=== PATIENT | female | born 1935 | race American Indian/Alaskan Native ===

== ENCOUNTER 2016-10-27 14:41 | Inpatient (IN) | payer MEDICARE ==
[2016-10-27] MEDS ORDERED: VALIUM PO ONE (17:13)
[2016-10-27] MEDS ORDERED: NORCO 5/325 PO ONE (17:13)
[2016-10-27] MEDS ORDERED: DUONEB 0.5 MG-3 MG/3 ML SOLN IH ONE ×2 (17:14→20:27)
--- NOTE | 2016-10-27 17:20 | Emergency Department Report ---
ED General Adult HPI - General Chief complaint: Dyspnea/Respdistress Stated complaint: BETHANY/BACK/LT SIDE PAIN Time Seen by Provider: 10/27/16 16:52 Source: patient, EMS Mode of arrival: Stretcher Limitations: No Limitations, Physical Limitation - History of Present Illness Initial comments: Patient is a 81-year-old female with history of end-stage renal disease on hemodialysis last dialyzed earlier this morning presenting today because of severe low back pain. Patient states that he has had a history of back pain and it usually improves with [place] at home. She states that her pain got worse over the last 4 days but became very severe today after dialysis. States that the pain radiates down the left leg and is similar but worse compared to prior episodes. Has no associated fever, saddle anesthesia, numbness in lower extremities, weakness in lower extremities or significant changes in walking. States patient uses a walker to be able to ambulate at baseline. She also has no history of cancer. She has not taken anything for pain today, usually takes a [place] at night for her pain. - Related Data Home Medications Medication Instructions Recorded Confirmed Last Taken Cardizem 120 mg PO BID 08/30/16 10/27/16 Unknown Labetalol 200 mg PO BID 08/30/16 10/27/16 Unknown Singulair 10 mg PO DAILY 08/30/16 10/27/16 Unknown hydrALAZINE 50 mg PO BID 08/30/16 10/27/16 Unknown Allergies Allergy/AdvReac Type Severity Reaction Status Date / Time enalapril maleate Allergy Severe THROAT Verified 10/27/16 16:42 [From Vasotec] SWELLING enalaprilat dihydrate Allergy Severe THROAT Verified 10/27/16 16:42 [From Vasotec] SWELLING Penicillins Allergy Severe Itching Verified 10/27/16 16:42 ED Review of Systems ROS: Stated complaint: BETHANY/BACK/LT SIDE PAIN Other details as noted in HPI Comment: All other systems reviewed and negative Constitutional: denies: chills, fever Respiratory: SOB with exertion. denies: cough Cardiovascular: dyspnea on exertion Gastrointestinal: denies: nausea, vomiting Skin: denies: rash Psychiatric: denies: anxiety ED Past Medical Hx - Past Medical History Hx Hypertension: Yes (CHF, last episode JUL 2016. PATIENT states she last saw integrated logistics support manager in Jul) Hx Liver Disease: Yes (hepatitis C ) Hx Renal Disease: Yes (ESRD) Hx COPD: Yes Hx HIV: No - Surgical History Past Surgical History?: Yes - Social History Smoking Status: Never Smoker Substance Use Type: None - Medications Home Medications: Home Medications Medication Instructions Recorded Confirmed Last Taken Type Cardizem 120 mg PO BID 08/30/16 10/27/16 Unknown History Labetalol 200 mg PO BID 08/30/16 10/27/16 Unknown History Singulair 10 mg PO DAILY 08/30/16 10/27/16 Unknown History hydrALAZINE 50 mg PO BID 08/30/16 10/27/16 Unknown History ED Physical Exam - General Limitations: No Limitations, Physical Limitation - Eye Eye exam: Present: normal appearance - ENT ENT exam: Present: normal exam - Respiratory Respiratory exam: Present: normal lung sounds bilaterally, other (patient goes into moderate respiratory distress with minimal exertion which included sitting up from 45 angle in bed, desaturated down to the low 80s) - Cardiovascular Cardiovascular Exam: Present: regular rate, normal rhythm - GI/Abdominal GI/Abdominal exam: Present: soft. Absent: distended, tenderness - Rectal Rectal exam: Present: normal rectal tone - Extremities Exam Extremities exam: Present: normal capillary refill - Back Exam Back exam: Present: other (tenderness to the midline lumbar spine, no step-offs , no paraspinal tenderness) - Neurological Exam Neurological exam: Present: alert, oriented X3. Absent: motor sensory deficit - Psychiatric Psychiatric exam: Present: agitated - Skin Skin exam: Present: intact ED Course Vital Signs 10/27/16 10/27/16 10/27/16 16:45 17:31 20:42 Temperature 100.1 F H 102.4 F H Pulse Rate 112 H Pulse Rate [ 106 H Anterior Bilateral Throughout] Respiratory 16 Rate Respiratory 20 Rate [Anterior Bilateral Throughout] Blood Pressure 150/51 O2 Sat by Pulse 95 Oximetry 10/27/16 21:21 Temperature Pulse Rate Pulse Rate [ 101 H Anterior Bilateral Throughout] Respiratory Rate Respiratory 18 Rate [Anterior Bilateral Throughout] Blood Pressure O2 Sat by Pulse Oximetry - Reevaluation(s) Reevaluation #1: 10/27/16 18:04 Patient was found to have a rectal temperature 102.4. Given this fever and severe back pain the concern for an epidural abscess was raised. Initially I had discussed with the patient's bushler Dr. Seshan who stated he would arrange for dialysis so that the patient could receive an MRI with contrast. I spoke to the radiologist for [facility], I discussed them with them the clinical case and the concern of epidural abscess. He states that a MRI without contrast is usually sufficient to detect an epidural abscess. A MRI without contrast is ordered and I discussed this with the patient as well as the bushler and chief medical technologist. Bank and cefepime were also ordered along with a blood culture prior to antibiotics. ED Medical Decision Making - Lab Data Result diagrams: 10/27/16 20:05 10/27/16 20:05 - Medical Decision Making IV, labs, cxr, MRI to ro abscess, Antibiotics with vancomycin and cefepime MRI negative for abscess no clear source based on cxr and physical exam CRP and WBC are both very elevated suggesting there is likely a septic process, patient does not produce urine so urinalysis was not obtained. Critical care attestation.: If time is entered above; I have spent that time in minutes in the direct care of this critically ill patient, excluding procedure time. ED Disposition Clinical Impression: Back pain Qualifiers: Back pain location: low back pain Chronicity: acute Back pain laterality: midline Sciatica presence: unspecified whether sciatica present Qualified Code(s ): M54.5 - Low back pain Sepsis Qualifiers: Sepsis type: sepsis due to unspecified organism Qualified Code(s): A41.9 - Sepsis, unspecified organism Disposition: OP ADMITTED IP TO THIS HOSP Is pt being admited?: Yes Condition: Serious Referrals: PRIMARY CARE, [Primary Care Provider] - 3-5 Days Time of Disposition: 22:46 (transition care to the hospitalist)
[2016-10-27] MEDS ORDERED: MAXIPIME/NS 2 GM/100 ML 100 ML IV ONE (17:34)
[2016-10-27] MEDS ORDERED: VANCOMYCIN VIAL IV ONE (17:34)
[2016-10-27] MEDS ORDERED: VANCOMYCIN PHARMACY TO DOSE IV SCH (18:00)
[2016-10-27] MEDS ORDERED: VANCOMYCIN VIAL 1,500 MG in NACL 0.9% 500 ML 500 ML IV ONE (19:00)
[2016-10-27 20:32] LABS: Hemoglobin 11.9 gm/dl (10.1-14.3); Mean Corpuscular HGB Conc 32 % (30-34); Mean Corpuscular Hemoglobin 29 pg (28-32); Mean Corpuscular Volume 90 fl (79-97); Platelet Count 222 K/mm3 (140-440); Red Blood Count 4.11 M/mm3 (3.65-5.03); Red Cell Distribution Width 15.8 % (13.2-15.2); White Blood Count 25.2 K/mm3 (4.5-11.0)
--- NOTE | 2016-10-27 20:49 | Magnetic Resonance Report ---
FINAL REPORT EXAM: MR CERVICAL SPINE WO CON HISTORY: ro abscess TECHNIQUE: MRI was performed of the cervical spine using the following pulse sequences: Axial: Gradient echo T2 weighted and T2 Sagittal: T1, T2 and STIR PRIORS: None. FINDINGS: The vertebral bodies have normal height and alignment and cervical lordosis is preserved. The paraspinous soft tissues are unremarkable. The cervical cord has a normal signal intensity and appearance. The craniocervical junction is unremarkable. There is no evidence of abscess. C2-3: No significant degenerative changes. No spinal or foraminal stenosis. C3-4: Mild posterior osteophyte disc complex without spinal or foraminal stenosis. C4-5: Mild posterior osteophyte disc complex without spinal or foraminal stenosis. Prominent right facet hypertrophy. C5-6: Mild posterior osteophyte disc complex that impresses upon the thecal sac but does not cause spinal or foraminal stenosis. C6-7: No significant degenerative changes. No spinal or foraminal stenosis. C7-T1: No significant degenerative changes. No spinal or foraminal stenosis. IMPRESSION: 1. Multilevel degenerative disc disease as described above 2. No evidence of abscess
[2016-10-27 20:50] LABS: ISTAT Base Excess 1; ISTAT HCO3 25.2; ISTAT PCO2 39.4 (35-45); ISTAT PH 7.413 (7.35-7.45); ISTAT PO2 83 (80-105); ISTAT SO2 96; ISTAT TCO2 26
[2016-10-27 20:53] LABS: BUN/Creatinine Ratio 4.41; Calcium 8.7 mg/dL (8.4-10.2); Phosphorous 2.5 mg/dL (2.5-4.5); Potassium 3.6 mmol/L (3.6-5.0)
[2016-10-27 20:54] LABS: Erythrocyte Sedimentation Rate 60 mm/Hr (0-20)
--- NOTE | 2016-10-27 20:55 | Magnetic Resonance Report ---
FINAL REPORT EXAM: MR THORACIC SPINE WO CON HISTORY: ro abscess TECHNIQUE: MRI of the thoracic spine: Sagittal T1 FLAIR, T2 and STIR Axial T1 and T2 Axial images are mildly motion degraded. PRIORS: None. FINDINGS: The thoracic vertebrae are normal in height and alignment. There are small hemangiomas in the T6, T10 and L1 vertebral bodies unlikely to be clinically significant. Otherwise, osseous marrow signal is normal. The thoracic cord is normal in signal intensity and there is no evidence of spinal or foraminal stenosis. The disc spaces are well preserved. There is no evidence of fracture or subluxation. The paraspinous soft tissues are unremarkable. There is no evidence of abscess. IMPRESSION: No evidence of abscess Hemangiomas in the T6, T10 and L1 vertebral bodies unlikely to be clinically significant.
--- NOTE | 2016-10-27 21:03 | Magnetic Resonance Report ---
FINAL REPORT EXAM: MR LUMBAR SPINE WO CON HISTORY: ro abscess TECHNIQUE: MRI of the lumbar spine: Axial: T1, T2 Sagittal: T1, T2 and STIR Sagittal images are mildly to moderately motion degraded. Axial images are moderately motion degraded. PRIORS: None. FINDINGS: The lumbar vertebral bodies have normal height and alignment and lumbar lordosis is preserved. The paraspinous soft tissues are unremarkable. There is no evidence of abscess. The conus medullaris is in a normal location and has a normal signal intensity and appearance. There is diffuse disc desiccation. There is a hemangioma in the L1 vertebral body unlikely to be clinically significant. L3-L4: No there is a medium-sized broad-based posterior disc bulge and bilateral facet hypertrophy that results in mild spinal stenosis. There is no foraminal stenosis. L4-L5: There is a broad-based posterior disc bulge and bilateral facet hypertrophy. There is bilateral neural foraminal narrowing. L5-S1: There is a broad-based posterior disc bulge and bilateral facet hypertrophy. There is bilateral neural foraminal narrowing. IMPRESSION: No evidence of abscess. Multilevel degenerative disc disease from L3-4 through L5-S1.
[2016-10-27 21:05] LABS: Basophils % (Manual) 0 % (0.0-1.8); Blastocytes % (Manual) 0 %; Eosinophils % (Manual) 0 % (0.0-4.3)
[2016-10-27 21:06] LABS: Anisocytosis Few; Poikilocytosis Few
[2016-10-27 21:07] LABS: Diff Status Complete
[2016-10-27] MEDS ORDERED: LEVAQUIN 750MG/150ML 150 ML IV ONE (23:15)
[2016-10-27] MEDS ORDERED: LEVAQUIN 750MG/150ML 150 ML IV SCH (23:15)
--- NOTE | 2016-10-27 23:17 | History and Physical Report ---
History of Present Illness Date of examination: 10/27/16 History of present illness: 81-year-old woman with end-stage renal disease on dialysis Sunday and Sunday, hypertension, CHF, COPD constant emergency room with complaints of of pain in the back in the left mid lateral aspect. She describes the pain is sharp, worse when she takes a deep breath. Also complaining of a cough productive of yellow phlegm, fever Patient denies chest pain, palpitation, abdominal pain, hematochezia, dysuria, frequency, focal weakness, dysarthria, fever chills, polydipsia polyuria, hot or cold intolerance, easy bruisability, or rash or bleeding from mucosal membrane, rhinorrhea, epistaxis, earache, tinnitus, blurry vision, eye discharge , anxiety, depression. Other review of systems negative PAST SURGICAL HISTORY: Cholecystectomy SOCIAL HISTORY: Denies alcohol, tobacco, drugs FAMILY HISTORY: Hypertension Medications and Allergies Allergies Allergy/AdvReac Type Severity Reaction Status Date / Time enalapril maleate Allergy Severe THROAT Verified 10/27/16 16:42 [From Vasotec] SWELLING enalaprilat dihydrate Allergy Severe THROAT Verified 10/27/16 16:42 [From Vasotec] SWELLING Penicillins Allergy Severe Itching Verified 10/27/16 16:42 Home Medications Medication Instructions Recorded Confirmed Last Taken Type Cardizem 120 mg PO BID 08/30/16 10/27/16 Unknown History Labetalol 200 mg PO BID 08/30/16 10/27/16 Unknown History Singulair 10 mg PO DAILY 08/30/16 10/27/16 Unknown History hydrALAZINE 50 mg PO BID 08/30/16 10/27/16 Unknown History Active Meds: Active Medications Vancomycin HCl (Vancomycin Pharmacy To Dose) 1 each IV PKCONSULT RASHAUN PRN Reason: Protocol Exam - Physical Exam Narrative exam: Gen. appearance: Patient lying in bed, no apparent distress HEENT: Normocephalic, atraumatic, pupils equally round and reactive to light, extraocular movement intact, and no sclericterus,. No JVD or thyromegaly or nodule,neck supple, no carotid bruit ,mucous membranes moist, no exudate or erythema Heart: S1, S2, regular rate and rhythm Lungs: Echo was on the left bilaterally, breathing comfortable Abdomen: Positive bowel sounds, nontender, nondistended, no organomegaly Extremity: No edema, cyanosis, clubbing Skin: No rash, nodules, warm, dry Neuro: Oriented 3, cranial nerves II-12 intact, speech is fluent, motor and sensory intact - Constitutional Vitals: Temp Pulse Resp BP Pulse Ox 102.4 F H 101 H 18 150/51 95 10/27/16 17:31 10/27/16 21:21 10/27/16 21:21 10/27/16 16:45 10/27/16 16:45 Results - Labs CBC & Chem 7: 10/28/16 06:47 10/28/16 06:47 Labs: Abnormal lab results 10/27/16 10/27/16 10/27/16 Range/Units 20:05 20:05 20:05 WBC 25.2 H (4.5-11.0) K/mm3 RDW 15.8 H (13.2-15.2) % Seg Neuts % (Manual) 96.0 H (40.0-70.0) % Lymphocytes % (Manual) 2.0 L (13.4-35.0) % Seg Neutrophils # Man 24.2 H (1.8-7.7) K/mm3 Lymphocytes # (Manual) 0.5 L (1.2-5.4) K/mm3 Chloride 97.0 L (98-107) mmol/L Creatinine 3.4 H (0.7-1.2) mg/dL Glucose 115 H (65-100) mg/dL Troponin T 0.069 H (0.00-0.029) ng/mL C-Reactive Protein (0.00-1.30) mg/dL NT-Pro-B Natriuret Pep 31163 H (0-900) pg/mL Triglycerides 179 H (2-149) mg/dL 10/27/16 Range/Units 20:05 WBC (4.5-11.0) K/mm3 RDW (13.2-15.2) % Seg Neuts % (Manual) (40.0-70.0) % Lymphocytes % (Manual) (13.4-35.0) % Seg Neutrophils # Man (1.8-7.7) K/mm3 Lymphocytes # (Manual) (1.2-5.4) K/mm3 Chloride (98-107) mmol/L Creatinine (0.7-1.2) mg/dL Glucose (65-100) mg/dL Troponin T (0.00-0.029) ng/mL C-Reactive Protein 33.20 H (0.00-1.30) mg/dL NT-Pro-B Natriuret Pep (0-900) pg/mL Triglycerides (2-149) mg/dL - Imaging and Cardiology EKG: image reviewed Chest x-ray: image reviewed Assessment and Plan MRI of the cervical, thoracic and lumbar spine negative for abscess Sepsis Suspect pneumonia Hypertension CHF, stable COPD stable End-stage renal disease on dialysis Obesity Admits medicine Status post vancomycin, start Levaquin Follow blood cultures, and CT chest Continue outpatient medications and start DVT prophylaxis
--- NOTE | 2016-10-27 23:42 | XRay Report ---
FINAL REPORT EXAM: XR CHEST 1V AP HISTORY: sob TECHNIQUE: AP portable view of the chest. PRIORS: None. FINDINGS: There is a right-sided central venous catheter with the tip in for the right atrium. There is atherosclerosis in the thoracic aorta. Otherwise the cardiomediastinal silhouette appears normal. The lungs are clear. The bones and soft tissues are unremarkable. IMPRESSION: No evidence of acute cardiopulmonary disease
[2016-10-28] MEDS ORDERED: LEVAQUIN 750MG/150ML 150 ML IV ONE (01:35)
--- NOTE | 2016-10-28 02:12 | Admit Criteria Form ---
<LAZARO NEWMAN - Last Filed: 10/28/16 02:13> Admission Criteria Documentation: BACK PAIN Clinical Indications for Admission to Inpatient Care (Place 'X' for any and all applicable criteria): Admission is indicated for ANY ONE of the following (1)(2)(3)(4)(5)(6): [x ]I. Inpatient admission required rather than observation care (Also use Back Pain: Observation Care as appropriate) because of ANY ONE of the following [ ]a) Severe pain requiring acute inpatient management [ ]b) Immediate inpatient surgery [ x]c) Other condition, treatment or monitoring requiring inpatient admission [ ]II. Spine fracture with significant damage or threat of damage to vertebral column or spinal cord [ ]III. Progressive or severe neurologic deficit [ ]IV. Suspected spinal infection (e.g., epidural abscess, vertebral osteomyelitis)(10) [ ]V. Suspected cause requires inpatient treatment (eg, aortic dissection) [ ]. Cauda equina syndrome as indicated by ANY ONE of the following (9): [ ]a) Bowel dysfunction [ ]b) Bladder dysfunction [ ]c) Saddle anesthesia [ ]d) Neurologic abnormality suggesting cauda equina impingement Extended stay beyond goal length of stay may be needed for (3)(25): [ ]a) Spinal cord compression from stenosis, disk, or tumor (8)(9) [ ]b) Traumatic or pathologic vertebral fracture (33) [ ]c) Vertebral infection(10) [ ]d) Severe pain that is difficult to control [ ]e) Older patients(65 years or older) The original [email or web address] content created by [employer] has been revised. The portions of the content which have been revised are identified through the use of italic text or in bold, and [facility] has neither reviewed nor approved the modified material. All other unmodified content is copyright [email or web address]. Please see references footnoted in the original [email or web address] edition 2016 Admission Criteria Met: Yes <RIGOBERTO THOMAS - Last Filed: 10/28/16 23:16> Admission Criteria Documentation: SEPSIS and OTHER FEBRILE ILLNESS, W/O FOCAL INFECTION Clinical Indications for Admission to Inpatient Care ( Place 'X' for any and all applicable criteria): Admission is indicated for ANY ONE of the following (1)(2)(3)(4): [ ] I. Bacteremia [ ]II. Suspected or identified specific infection requiring hospitalization (eg, meningitis, endocarditis) [ ]III. Hemodynamic instability [ ]IV. Altered mental status [ ]V. Failure or unavailability of outpatient antimicrobial treatment [ ]. Hypoxemia [ ]VII. Seizures [ ]VIII. High-risk febrile neutropenia [ ]IX. Need for parenteral antibiotic in patient who is likely to abuse vascular access device (eg, injection drug user) [A](7) [ ]X. Temperature greater than 104.9 degrees F (40.5 degrees C) (oral) [X ]XI. Inpatient admission required rather than observation care because of ANY ONE of the following: [ ]1) Specific infection identified that is too severe for outpatient treatment or observation care trial [ ]2) Metabolic disorder (eg, hypoglycemia, hyperglycemia, metabolic acidosis) that is severe or persistent [ ]3) Temperature greater than 103.1 degrees F (39.5 degrees C) ( oral) that is not responsive to observation care treatment [ ]4) IV fluid to replace significant ongoing (eg, for over 24 hours) losses (> 3 L/m2 per day) [ ]5) Supplemental oxygen or respiratory treatments for over 24 hours that is performable only in acute inpatient setting [ ]6) Parenteral nutrition regimen need that must be implemented on inpatient basis [ ]7) Strict or protective (eg, laminar flow) isolation [X ]8) Other condition, treatment or monitoring requiring inpatient admission Extended stay beyond goal length of stay may be needed for(1)(3) [ ]a) Sepsis or septic shock(22) [ ]b) Positive blood cultures [ ]c) Insufficient oral intake [ ]d) High-risk febrile neutropenia(29)(30) [ ]e) Continued fever and clinical instability [ ]f) Clinically active comorbid illness (e.g,heart failure, renal failure , diabetes) The original [facility] content created by [employer] has been revised. The portions of the content which have been revised are identified through the use of italic text or in bold, and [facility] has neither reviewed nor approved the modified material. All other unmodified content is copyright [facility]. Please see references footnoted in the original [email or web address] edition 2016 Admission Criteria Met: Yes
--- NOTE | 2016-10-28 02:59 | Cat Scan Report ---
FINAL REPORT PROCEDURE: CT CHEST WO CON TECHNIQUE: Computerized axial tomography of the chest was performed without contrast material. This study is performed without intravenous contrast and the sensitivity for pathology, including neoplasms, adenopathy, abscess, pulmonary embolism and aortic dissection, is reduced. HISTORY: sob fever COMPARISON: No prior studies are available for comparison. TECHNICAL QUALITY: Satisfactory. FINDINGS: Heart and pericardium: Normal. Thoracic aorta: There is calcified plaque in the thoracic aorta. There is no aneurysm.. Pulmonary vasculature: Normal. Lymph nodes: There are borderline enlarged mediastinal lymph nodes.. Lungs: There is advanced COPD. There is cystic change and fibrosis at the lung bases. There is infiltrate at the right lung base.. Pleural space: There are no effusions or pneumothoraces.. Musculoskeletal structures: No significant abnormality. Upper abdominal structures: No significant abnormality. IMPRESSION: Heart size is normal. There are borderline enlarged mediastinal lymph nodes.. There is advanced COPD. There is cystic change and fibrosis at the lung bases. There is infiltrate at the right lung base.. There are no effusions or pneumothoraces.. .
[2016-10-28] MEDS ORDERED: TYLENOL PO PRN (05:17)
[2016-10-28] MEDS ORDERED: MILK OF MAGNESIA PO PRN (05:17)
[2016-10-28] MEDS ORDERED: ZOFRAN IV PRN (05:17)
[2016-10-28] MEDS ORDERED: DULCOLAX PR PRN (05:17)
[2016-10-28 07:58] LABS: BUN/Creatinine Ratio 4.76; Calcium 8.3 mg/dL (8.4-10.2); Chloride 97.1 mmol/L (98-107); Potassium 3.8 mmol/L (3.6-5.0)
[2016-10-28 08:00] LABS: Hematocrit 33.6 % (30.3-42.9); Hemoglobin 10.7 gm/dl (10.1-14.3); Mean Corpuscular HGB Conc 32 % (30-34); Mean Corpuscular Hemoglobin 29 pg (28-32); Mean Corpuscular Volume 91 fl (79-97); Platelet Count 214 K/mm3 (140-440); Red Cell Distribution Width 15.9 % (13.2-15.2)
[2016-10-28 08:36] LABS: White Blood Count 32.6 K/mm3 (4.5-11.0)
[2016-10-28] MEDS: NORMODYNE PO SCH ×2 (09:58→22:12)
[2016-10-28] MEDS: PERCOCET 5/325 PO PRN ×2 (09:58→17:14)
[2016-10-28] MEDS: APRESOLINE PO SCH ×2 (09:58→22:11)
[2016-10-28] MEDS: LOVENOX SUB-Q SCH (09:58)
[2016-10-28] MEDS: SINGULAIR PO SCH (09:58)
[2016-10-28] MEDS ORDERED: LABETALOL 200 MG PO SCH (10:00)
[2016-10-28] MEDS ORDERED: NON-FORMULARY (Singulair 10 MG) PO SCH (10:00)
[2016-10-28] MEDS ORDERED: NON-FORMULARY (Hydralazine 50 MG) PO SCH (10:00)
--- NOTE | 2016-10-28 11:09 | Consultation ---
History of Present Illness - Reason for Consult Consult date: 10/27/16 end stage renal disease - History of Present Illness Patient is a 81 year old AAF with history significant for ESRD on maintenance hemodialysis on Sunday and Sunday, Hypertension, CHF, COPD, Anemia, Hepatitis C and OA was sent to the ER from hemodialysis unit for further evaluation of shortness of breath. The symptoms started one week prior to admission and progressively got worse. Associated symptoms include left mid lateral chest wall pain, cough productive of yellow phlegm, fever, malaise, poor appetite and generalized weakness. Patient was last dialyzed yesterday. Patient denies chest pain, hemoptysis, N, V, D, abdominal pain, dysuria, hematuria, skin rash or jaundice. Past History Past Medical History: anemia, COPD, dialysis, ESRD, heart failure, hepatitis, hypertension Past Surgical History: Other (AVG placement) Social history: denies: smoking, alcohol abuse Medications and Allergies Allergies Allergy/AdvReac Type Severity Reaction Status Date / Time enalapril maleate Allergy Severe THROAT Verified 10/27/16 16:42 [From Vasotec] SWELLING enalaprilat dihydrate Allergy Severe THROAT Verified 10/27/16 16:42 [From Vasotec] SWELLING Penicillins Allergy Severe Itching Verified 10/27/16 16:42 Home Medications Medication Instructions Recorded Confirmed Last Taken Type Cardizem 120 mg PO BID 08/30/16 10/27/16 Unknown History Labetalol 200 mg PO BID 08/30/16 10/27/16 Unknown History Singulair 10 mg PO DAILY 08/30/16 10/27/16 Unknown History hydrALAZINE 50 mg PO BID 08/30/16 10/27/16 Unknown History Active Meds: Active Medications Acetaminophen (Tylenol) 650 mg PO Q4H PRN PRN Reason: Pain MILD(1-3)/Fever >100.5/MCLEAN Bisacodyl (Dulcolax) 10 mg ID QDAY PRN PRN Reason: Constipation unrelieved by MOM Enoxaparin Sodium (Lovenox) 30 mg SUB-Q QDAY [facility] Last Admin: 10/28/16 09:58 Dose: 30 mg Hydralazine HCl (Apresoline) 50 mg PO BID [facility] Last Admin: 10/28/16 09:58 Dose: 50 mg Levofloxacin/Dextrose (Levaquin 500mg/100ml) 100 mls @ 100 mls/hr IV Q48H [facility] Labetalol HCl (Normodyne) 200 mg PO BID [facility] Last Admin: 10/28/16 09:58 Dose: 200 mg Magnesium Hydroxide (Milk Of Magnesia) 30 ml PO Q4H PRN PRN Reason: Constipation Montelukast Sodium (Singulair) 10 mg PO DAILY [facility] Last Admin: 10/28/16 09:58 Dose: 10 mg Ondansetron HCl (Zofran) 4 mg IV Q8H PRN PRN Reason: N/V unrelieved by Reglan Oxycodone/Acetaminophen (Percocet 5/325) 1 tab PO Q6H PRN PRN Reason: Pain, Moderate (4-6) Last Admin: 10/28/16 09:58 Dose: 1 tab Vancomycin HCl (Vancomycin Pharmacy To Dose) 1 each IV PKCONSULT [facility] PRN Reason: Protocol Review of Systems Constitutional: fever, sweats, anorexia, fatigue, weakness, malaise, lethargy, poor appetite Ears, nose, mouth and throat: no ear pain, no sinus pressure, no sinus pain, no epistaxis, no dysphagia Breasts: deferred Cardiovascular: edema, shortness of breath, dyspnea on exertion, no chest pain, no orthopnea, no syncope, no lightheadedness Respiratory: cough, cough with sputum, shortness of breath, dyspnea on exertion , no hemoptysis, no wheezing Gastrointestinal: no abdominal pain, no nausea, no vomiting, no diarrhea, no melena Genitourinary Female: no dysuria, no hematuria Rectal: no bleeding Musculoskeletal: frequent falls, no neck stiffness, no neck pain, no redness of joints Integumentary: no rash, no jaundice Neurological: no head injury, no paralysis, no seizures, no syncope Endocrine: no high blood sugars Hematologic/Lymphatic: no easy bleeding Allergic/Immunologic: no urticaria Exam - Vital Signs Vital signs: Vital Signs Temp Pulse Resp BP Pulse Ox 100.1 F H 112 H 16 150/51 95 10/27/16 16:45 10/27/16 16:45 10/27/16 16:45 10/27/16 16:45 10/27/16 16:45 - General Appearance General appearance: well-developed, well-nourished, appears stated age, frail, other (no distress, left arm AVG, right IJ tunnel catheter) EENT: PERRL, mucous membranes moist Neck: Present: neck supple Respiratory: Clear to Ascultation Heart: regular, S1S2, no murmurs Gastrointestinal: Present: normoactive bowel sounds. Absent: tenderness, distended Integumentary: no rash Neurologic: no focal deficit, no asterixis, alert and oriented x3, CN 3-12 intact Musculoskeletal: Present: other (no edema) Psychiatric: cooperative Results - Lab Results 10/30/16 15:20 10/30/16 15:20 Most recent lab results Calcium 8.3 mg/dL (8.4-10.2) L 10/28/16 06:47 Phosphorus 2.5 mg/dL (2.5-4.5) 10/27/16 20:05 Magnesium 2.0 mg/dL (1.7-2.3) 10/27/16 20:05 Assessment and Plan - Patient Problems (1) ESRD (end stage renal disease) on dialysis Current Visit: Yes Status: Acute Plan to address problem: Patient is well known to our service. Patient was last dialyzed yesterday. Continue hemodialysis MWF. (2) Pneumonia Current Visit: Yes Status: Acute (3) Sepsis Current Visit: Yes Status: Acute Qualifiers: Sepsis type: sepsis due to unspecified organism Qualified Code(s): A41.9 - Sepsis, unspecified organism Plan to address problem: Monitor cultures. (4) Anemia, chronic renal failure Current Visit: No Status: Acute Plan to address problem: Epogen.
--- NOTE | 2016-10-28 12:21 | Progress Note ---
Assessment and Plan Assessment and plan: --Possible pneumonia, community-acquired Continue current antibiotics, follow cultures, supportive care --Sepsis secondary to pneumonia Emaciated sepsis pathway, monitor lactic acid levels, follow cultures, IV fluids --Severe leukocytosis secondary to sepsis Follow cultures, consider ID evaluation if needed --Hypertension; Moderate control, continue current antihypertensives and when necessary medications --Back pain/secondary to degenerative spine disease MRI cervical spine, MRI thoracic spine, MRI lumbosacral spine negative for abscess Findings consistent with degenerative disc and spine disease Continue pain medications supportive care, physical therapy occupational therapy when patient is more stable --End-stage renal disease on hemodialysis; Dialysis per scheduled, nephrology following --Abnormal cardiac enzymes; Probably secondary to end-stage renal disease, patient does not have any chest pain or shortness of breath However in view of patient's multiple risk factors acute coronary syndrome needs to be ruled out, serial cardiac enzymes and EKG Echocardiogram if needed --Acute exacerbation of COPD; Oxygen titrated to O2 sats more than 90%, nebulizers as needed, patient is already on antibiotics Supportive care --Acute on chronic congestive heart failure Managed with diuretics and dialysis and fluid removal Consider cardiology evaluation if needed --DVT prophylaxis with heparin --Status; full code Plan of care discussed with the patient her nurse, medical records reviewed History Interval history: Patient seen and evaluated medical records reviewed No new events reported by the nursing staff Patient denies chest pain shortness of breath Hospitalist Physical - Constitutional Vitals: Temp Pulse Resp BP Pulse Ox 98.4 F 102 H 16 150/66 100 10/28/16 08:00 10/28/16 08:00 10/28/16 08:00 10/28/16 08:00 10/28/16 10:00 General appearance: Present: no acute distress, well-nourished - EENT Eyes: Present: PERRL, EOM intact - Neck Neck: Present: supple, normal ROM - Respiratory Respiratory effort: normal Respiratory: bilateral: diminished, negative: rales, rhonchi, wheezing - Cardiovascular Rhythm: regular Heart Sounds: Present: S1 & S2 - Extremities Extremities: no ischemia, pulses intact, pulses symmetrical Peripheral Pulses: within normal limits - Abdominal General gastrointestinal: soft, non-tender, non-distended, normal bowel sounds - Integumentary Integumentary: Present: clear, warm - Psychiatric Psychiatric: appropriate mood/affect, cooperative - Neurologic Neurologic: CNII-XII intact, moves all extremities Results - Labs CBC & Chem 7: 10/28/16 06:47 10/28/16 06:47 Labs: Laboratory Last Values WBC 32.6 K/mm3 (4.5-11.0) H 10/28/16 06:47 RBC 3.70 M/mm3 (3.65-5.03) 10/28/16 06:47 Hgb 10.7 gm/dl (10.1-14.3) 10/28/16 06:47 Hct 33.6 % (30.3-42.9) 10/28/16 06:47 MCV 91 fl (79-97) 10/28/16 06:47 MCH 29 pg (28-32) 10/28/16 06:47 MCHC 32 % (30-34) 10/28/16 06:47 RDW 15.9 % (13.2-15.2) H 10/28/16 06:47 Plt Count 214 K/mm3 (140-440) 10/28/16 06:47 Add Manual Diff Complete 10/27/16 20:05 Total Counted 100 10/27/16 20:05 Seg Neutrophils % [place] 10/28/16 06:47 Seg Neuts % (Manual) 96.0 % (40.0-70.0) H 10/27/16 20:05 Band Neutrophils % 0 % 10/27/16 20:05 Lymphocytes % (Manual) 2.0 % (13.4-35.0) L 10/27/16 20:05 Reactive Lymphs % (Man) 0 % 10/27/16 20:05 Monocytes % (Manual) 2.0 % (0.0-7.3) 10/27/16 20:05 Eosinophils % (Manual) 0 % (0.0-4.3) 10/27/16 20:05 Basophils % (Manual) 0 % (0.0-1.8) 10/27/16 20:05 Metamyelocytes % 0 % 10/27/16 20:05 Myelocytes % 0 % 10/27/16 20:05 Promyelocytes % 0 % 10/27/16 20:05 Blast Cells % 0 % 10/27/16 20:05 Nucleated RBC % Not Reportable 10/27/16 20:05 Seg Neutrophils # Man 24.2 K/mm3 (1.8-7.7) H 10/27/16 20:05 Band Neutrophils # 0.0 K/mm3 10/27/16 20:05 Lymphocytes # (Manual) 0.5 K/mm3 (1.2-5.4) L 10/27/16 20:05 Abs React Lymphs (Man) 0.0 K/mm3 10/27/16 20:05 Monocytes # (Manual) 0.5 K/mm3 (0.0-0.8) 10/27/16 20:05 Eosinophils # (Manual) 0.0 K/mm3 (0.0-0.4) 10/27/16 20:05 Basophils # (Manual) 0.0 K/mm3 (0.0-0.1) 10/27/16 20:05 Metamyelocytes # 0.0 K/mm3 10/27/16 20:05 Myelocytes # 0.0 K/mm3 10/27/16 20:05 Promyelocytes # 0.0 K/mm3 10/27/16 20:05 Blast Cells # 0.0 K/mm3 10/27/16 20:05 WBC Morphology Not Reportable 10/27/16 20:05 Hypersegmented Neuts Not Reportable 10/27/16 20:05 Hyposegmented Neuts Not Reportable 10/27/16 20:05 Hypogranular Neuts Not Reportable 10/27/16 20:05 Smudge Cells Not Reportable 10/27/16 20:05 Toxic Granulation Not Reportable 10/27/16 20:05 Toxic Vacuolation Not Reportable 10/27/16 20:05 Dohle Bodies Not Reportable 10/27/16 20:05 Pelger-Huet Anomaly Not Reportable 10/27/16 20:05 [place] Rods Not Reportable 10/27/16 20:05 Platelet Estimate Appears normal 10/27/16 20:05 Clumped Platelets Not Reportable 10/27/16 20:05 Plt Clumps, EDTA Not Reportable 10/27/16 20:05 Large Platelets Not Reportable 10/27/16 20:05 Giant Platelets Not Reportable 10/27/16 20:05 Platelet Satelliting Not Reportable 10/27/16 20:05 Plt Morphology Comment Not Reportable 10/27/16 20:05 RBC Morphology Not Reportable 10/27/16 20:05 Dimorphic RBCs Not Reportable 10/27/16 20:05 Polychromasia Not Reportable 10/27/16 20:05 Hypochromasia Not Reportable 10/27/16 20:05 Poikilocytosis Few 10/27/16 20:05 Anisocytosis Few 10/27/16 20:05 Microcytosis Not Reportable 10/27/16 20:05 Macrocytosis Not Reportable 10/27/16 20:05 Spherocytes Not Reportable 10/27/16 20:05 Pappenheimer Bodies Not Reportable 10/27/16 20:05 Sickle Cells Not Reportable 10/27/16 20:05 Target Cells Not Reportable 10/27/16 20:05 Tear Drop Cells Not Reportable 10/27/16 20:05 Ovalocytes Not Reportable 10/27/16 20:05 Helmet Cells Not Reportable 10/27/16 20:05 Hackett-[place] Bodies Not Reportable 10/27/16 20:05 [place] Rings Not Reportable 10/27/16 20:05 Nelia Cells Not Reportable 10/27/16 20:05 Bite Cells Not Reportable 10/27/16 20:05 Crenated Cell Not Reportable 10/27/16 20:05 Elliptocytes Not Reportable 10/27/16 20:05 Acanthocytes (Spur) Not Reportable 10/27/16 20:05 Rouleaux Not Reportable 10/27/16 20:05 Hemoglobin C Crystals Not Reportable 10/27/16 20:05 Schistocytes Not Reportable 10/27/16 20:05 Malaria parasites Not Reportable 10/27/16 20:05 ESR 60 mm/Hr (0-20) 10/27/16 20:05 Domingo Bodies Not Reportable 10/27/16 20:05 Hem Pathologist Commnt No 10/27/16 20:05 POC ABG pH 7.413 (7.35-7.45) 10/27/16 20:42 POC ABG pCO2 39.4 (35-45) 10/27/16 20:42 POC ABG pO2 83 (80-105) 10/27/16 20:42 POC ABG HCO3 25.2 10/27/16 20:42 POC ABG Total CO2 26 10/27/16 20:42 POC ABG O2 Sat 96 10/27/16 20:42 POC ABG Base Excess 1 10/27/16 20:42 FiO2 24 % 10/27/16 20:42 Sodium 137 mmol/L (137-145) 10/28/16 06:47 Potassium 3.8 mmol/L (3.6-5.0) 10/28/16 06:47 Chloride 97.1 mmol/L (98-107) L 10/28/16 06:47 Carbon Dioxide 24 mmol/L (22-30) 10/28/16 06:47 Anion Gap 20 mmol/L 10/28/16 06:47 BUN 20 mg/dL (7-17) H 10/28/16 06:47 Creatinine 4.2 mg/dL (0.7-1.2) H 10/28/16 06:47 Estimated GFR 12 ml/min 10/28/16 06:47 BUN/Creatinine Ratio 4.76 % 10/28/16 06:47 Glucose 93 mg/dL (65-100) 10/28/16 06:47 Lactic Acid 1.6 mmol/L (0.7-2.0) 10/27/16 20:05 Calcium 8.3 mg/dL (8.4-10.2) L 10/28/16 06:47 Phosphorus 2.5 mg/dL (2.5-4.5) 10/27/16 20:05 Magnesium 2.0 mg/dL (1.7-2.3) 10/27/16 20:05 Total Creatine Kinase 88 units/L (30-135) 10/28/16 06:47 CK-MB (CK-2) 2.0 ng/mL (0.0-4.0) 10/28/16 06:47 CK-MB (CK-2) Rel Index 2.2 (0-4) 10/28/16 06:47 Troponin T 0.066 ng/mL (0.00-0.029) H 10/28/16 06:47 C-Reactive Protein 33.20 mg/dL (0.00-1.30) H 10/27/16 20:05 NT-Pro-B Natriuret Pep 61132 pg/mL (0-900) H 10/27/16 20:05 Triglycerides 179 mg/dL (2-149) H 10/27/16 20:05 Cholesterol 141 mg/dL (50-199) 10/27/16 20:05 LDL Cholesterol Direct 63 mg/dL (50-130) 10/27/16 20:05 HDL Cholesterol 43 mg/dL (40-59) 10/27/16 20:05 Cholesterol/HDL Ratio 3.27 % 10/27/16 20:05
[2016-10-28 13:06] LABS: Anisocytosis 1+; Basophils % (Manual) 0.5 % (0.0-1.8); Blastocytes % (Manual) 0 %; Diff Status Complete; Eosinophils % (Manual) 0 % (0.0-4.3); Platelet Estimate Consistent w Auto
[2016-10-29] MEDS: NORMODYNE PO SCH ×2 (09:43→21:37)
[2016-10-29] MEDS: APRESOLINE PO SCH ×2 (09:43→21:37)
[2016-10-29] MEDS: PERCOCET 5/325 PO PRN ×2 (09:43→18:24)
[2016-10-29] MEDS: LOVENOX SUB-Q SCH (09:44)
[2016-10-29] MEDS: SINGULAIR PO SCH (09:44)
--- NOTE | 2016-10-29 10:45 | Progress Note ---
Assessment and Plan - Patient Problems (1) ESRD (end stage renal disease) on dialysis Current Visit: Yes Status: Chronic Plan to address problem: Continue hemodialysis MWF. (2) Pneumonia Current Visit: Yes Status: Acute Plan to address problem: Continue antibiotics. (3) Sepsis Current Visit: Yes Status: Acute Qualifiers: Sepsis type: sepsis due to unspecified organism Qualified Code(s): A41.9 - Sepsis, unspecified organism Plan to address problem: Monitor cultures. (4) Anemia, chronic renal failure Current Visit: No Status: Chronic Plan to address problem: Epogen. Subjective Date of service: 10/29/16 Interval history: Patient continues to have SOB. Objective - Vital Signs Vital signs: Vital Signs - 12hr 10/28/16 10/29/16 23:00 08:00 Temperature 98.2 F 98 F Pulse Rate [ 83 82 Right] Respiratory 21 18 Rate Blood Pressure 154/70 150/68 [Right Arm] O2 Sat by Pulse 100 99 Oximetry - General Appearance General appearance: well-developed, well-nourished, frail, other (no distress, left arm AVG, right IJ tunnel catheter) EENT: PERRL, mucous membranes moist, hearing intact, vision intact Neck: supple Respiratory: Present: Clear to Ascultation Cardiology: regular, S1S2, no murmurs Gastrointestinal: normoactive bowel sounds, no tenderness, no distended Integumentary: no rash Neurologic: no focal deficit, no asterixis, alert and oriented x3, CN 3-12 intact Musculoskeletal: other (no edema) Psychiatric: cooperative - Lab 10/30/16 15:20 10/30/16 15:20 Most recent lab results Calcium 8.3 mg/dL (8.4-10.2) L 10/28/16 06:47 Phosphorus 2.5 mg/dL (2.5-4.5) 10/27/16 20:05 Magnesium 2.0 mg/dL (1.7-2.3) 10/27/16 20:05
[2016-10-29 12:34] LABS: Bacteria,Urine 1+ /HPF (Negative); Bilirubin,Urine NEG (Negative); Blood,Urine MOD (Negative); Ketones,Urine TR mg/dL (Negative); Leukocyte Esterase,Urine LG (Negative); Mucus,Urine FEW /HPF; Nitrite,Urine NEG (Negative); Urobilinogen,Urine < 2.0 mg/dL (<2.0)
--- NOTE | 2016-10-29 13:08 | Progress Note ---
Assessment and Plan Assessment and plan: --Possible pneumonia, community-acquired Continue current antibiotics, blood culture positive for enterococcus Repeat blood cultures, follow sensitivity, continue current antibiotics --Sepsis Severe leukocytosis Follow cultures, consider ID evaluation if needed Rule out C. difficile --Hypertension; Moderate control, continue current antihypertensives and when necessary medications --Back pain/secondary to degenerative spine disease MRI cervical spine, MRI thoracic spine, MRI lumbosacral spine negative for abscess Findings consistent with degenerative disc and spine disease Continue pain medications supportive care, physical therapy occupational therapy when patient is more stable --End-stage renal disease on hemodialysis; Dialysis per scheduled, nephrology following --Abnormal cardiac enzymes; Probably secondary to end-stage renal disease, patient does not have cardiac symptoms However in view of patient's multiple risk factors acute coronary syndrome needs to be ruled out, serial cardiac enzymes and EKG Echocardiogram if needed --Acute exacerbation of COPD; Oxygen titrated to O2 sats more than 90%, nebulizers as needed, patient is already on antibiotics Supportive care --Acute on chronic congestive heart failure Managed with diuretics and dialysis and fluid removal Consider cardiology evaluation if needed --DVT prophylaxis with heparin --Status; full code Plan of care discussed with the patient her nurse, medical records reviewed History Interval history: Patient seen and evaluated medical records reviewed Patient feels slightly better Underwent echocardiogram, denies any chest pain or shortness of breath Alert awake oriented 3 not in acute distress Blood cultures positive for enterococcus Hospitalist Physical - Constitutional Vitals: Temp Pulse Resp BP Pulse Ox 98 F 82 18 150/68 99 10/29/16 08:00 10/29/16 08:00 10/29/16 08:00 10/29/16 08:00 10/29/16 08:00 General appearance: Present: no acute distress, well-nourished - EENT Eyes: Present: PERRL, EOM intact - Neck Neck: Present: supple, normal ROM - Respiratory Respiratory effort: normal Respiratory: bilateral: diminished, negative: rales, rhonchi, wheezing - Extremities Extremities: no ischemia, pulses intact, pulses symmetrical Peripheral Pulses: within normal limits - Abdominal General gastrointestinal: soft, non-tender, non-distended, normal bowel sounds - Integumentary Integumentary: Present: clear, warm - Psychiatric Psychiatric: appropriate mood/affect, cooperative - Neurologic Neurologic: CNII-XII intact, moves all extremities Results - Labs CBC & Chem 7: 10/28/16 06:47 10/28/16 06:47 Labs: Laboratory Last Values WBC 32.6 K/mm3 (4.5-11.0) H 10/28/16 06:47 RBC 3.70 M/mm3 (3.65-5.03) 10/28/16 06:47 Hgb 10.7 gm/dl (10.1-14.3) 10/28/16 06:47 Hct 33.6 % (30.3-42.9) 10/28/16 06:47 MCV 91 fl (79-97) 10/28/16 06:47 MCH 29 pg (28-32) 10/28/16 06:47 MCHC 32 % (30-34) 10/28/16 06:47 RDW 15.9 % (13.2-15.2) H 10/28/16 06:47 Plt Count 214 K/mm3 (140-440) 10/28/16 06:47 Add Manual Diff Complete 10/28/16 06:47 Total Counted 200 10/28/16 06:47 Seg Neutrophils % Sticker Hand 10/28/16 06:47 Seg Neuts % (Manual) 89.0 % (40.0-70.0) H 10/28/16 06:47 Band Neutrophils % 0.5 % 10/28/16 06:47 Lymphocytes % (Manual) 4.5 % (13.4-35.0) L 10/28/16 06:47 Reactive Lymphs % (Man) 0 % 10/28/16 06:47 Monocytes % (Manual) 5.5 % (0.0-7.3) 10/28/16 06:47 Eosinophils % (Manual) 0 % (0.0-4.3) 10/28/16 06:47 Basophils % (Manual) 0.5 % (0.0-1.8) 10/28/16 06:47 Metamyelocytes % 0 % 10/28/16 06:47 Myelocytes % 0 % 10/28/16 06:47 Promyelocytes % 0 % 10/28/16 06:47 Blast Cells % 0 % 10/28/16 06:47 Nucleated RBC % Not Reportable 10/28/16 06:47 Seg Neutrophils # Man 29.0 K/mm3 (1.8-7.7) H 10/28/16 06:47 Band Neutrophils # 0.2 K/mm3 10/28/16 06:47 Lymphocytes # (Manual) 1.5 K/mm3 (1.2-5.4) 10/28/16 06:47 Abs React Lymphs (Man) 0.0 K/mm3 10/28/16 06:47 Monocytes # (Manual) 1.8 K/mm3 (0.0-0.8) H 10/28/16 06:47 Eosinophils # (Manual) 0.0 K/mm3 (0.0-0.4) 10/28/16 06:47 Basophils # (Manual) 0.2 K/mm3 (0.0-0.1) H 10/28/16 06:47 Metamyelocytes # 0.0 K/mm3 10/28/16 06:47 Myelocytes # 0.0 K/mm3 10/28/16 06:47 Promyelocytes # 0.0 K/mm3 10/28/16 06:47 Blast Cells # 0.0 K/mm3 10/28/16 06:47 WBC Morphology Not Reportable 10/28/16 06:47 Hypersegmented Neuts Not Reportable 10/28/16 06:47 Hyposegmented Neuts Not Reportable 10/28/16 06:47 Hypogranular Neuts Not Reportable 10/28/16 06:47 Smudge Cells Not Reportable 10/28/16 06:47 Toxic Granulation Not Reportable 10/28/16 06:47 Toxic Vacuolation Not Reportable 10/28/16 06:47 Dohle Bodies Not Reportable 10/28/16 06:47 Pelger-Huet Anomaly Not Reportable 10/28/16 06:47 Wayne Rods Not Reportable 10/28/16 06:47 Platelet Estimate Consistent w auto 10/28/16 06:47 Clumped Platelets Not Reportable 10/28/16 06:47 Plt Clumps, EDTA Not Reportable 10/28/16 06:47 Large Platelets Not Reportable 10/28/16 06:47 Giant Platelets Not Reportable 10/28/16 06:47 Platelet Satelliting Not Reportable 10/28/16 06:47 Plt Morphology Comment Not Reportable 10/28/16 06:47 RBC Morphology Not Reportable 10/28/16 06:47 Dimorphic RBCs Not Reportable 10/28/16 06:47 Polychromasia Not Reportable 10/28/16 06:47 Hypochromasia Not Reportable 10/28/16 06:47 Poikilocytosis Not Reportable 10/28/16 06:47 Anisocytosis 1+ 10/28/16 06:47 Microcytosis Not Reportable 10/28/16 06:47 Macrocytosis Not Reportable 10/28/16 06:47 Spherocytes Not Reportable 10/28/16 06:47 Pappenheimer Bodies Not Reportable 10/28/16 06:47 Sickle Cells Not Reportable 10/28/16 06:47 Target Cells Not Reportable 10/28/16 06:47 Tear Drop Cells Not Reportable 10/28/16 06:47 Ovalocytes Not Reportable 10/28/16 06:47 Helmet Cells Not Reportable 10/28/16 06:47 [place] Bodies Not Reportable 10/28/16 06:47 [place] Rings Not Reportable 10/28/16 06:47 Nelia Cells Not Reportable 10/28/16 06:47 Bite Cells Not Reportable 10/28/16 06:47 Crenated Cell Not Reportable 10/28/16 06:47 Elliptocytes Not Reportable 10/28/16 06:47 Acanthocytes (Spur) Not Reportable 10/28/16 06:47 Rouleaux Not Reportable 10/28/16 06:47 Hemoglobin C Crystals Not Reportable 10/28/16 06:47 Schistocytes Not Reportable 10/28/16 06:47 Malaria parasites Not Reportable 10/28/16 06:47 ESR 60 mm/Hr (0-20) 10/27/16 20:05 [place]ingo Bodies Not Reportable 10/28/16 06:47 Hem Pathologist Commnt No 10/28/16 06:47 POC ABG pH 7.413 (7.35-7.45) 10/27/16 20:42 POC ABG pCO2 39.4 (35-45) 10/27/16 20:42 POC ABG pO2 83 (80-105) 10/27/16 20:42 POC ABG HCO3 25.2 10/27/16 20:42 POC ABG Total CO2 26 10/27/16 20:42 POC ABG O2 Sat 96 10/27/16 20:42 POC ABG Base Excess 1 10/27/16 20:42 FiO2 24 % 10/27/16 20:42 Sodium 137 mmol/L (137-145) 10/28/16 06:47 Potassium 3.8 mmol/L (3.6-5.0) 10/28/16 06:47 Chloride 97.1 mmol/L (98-107) L 10/28/16 06:47 Carbon Dioxide 24 mmol/L (22-30) 10/28/16 06:47 Anion Gap 20 mmol/L 10/28/16 06:47 BUN 20 mg/dL (7-17) H 10/28/16 06:47 Creatinine 4.2 mg/dL (0.7-1.2) H 10/28/16 06:47 Estimated GFR 12 ml/min 10/28/16 06:47 BUN/Creatinine Ratio 4.76 % 10/28/16 06:47 Glucose 93 mg/dL (65-100) 10/28/16 06:47 Lactic Acid 1.6 mmol/L (0.7-2.0) 10/27/16 20:05 Calcium 8.3 mg/dL (8.4-10.2) L 10/28/16 06:47 Phosphorus 2.5 mg/dL (2.5-4.5) 10/27/16 20:05 Magnesium 2.0 mg/dL (1.7-2.3) 10/27/16 20:05 Total Creatine Kinase 74 units/L (30-135) 10/28/16 13:26 CK-MB (CK-2) 2.0 ng/mL (0.0-4.0) 10/28/16 13:26 CK-MB (CK-2) Rel Index 2.7 (0-4) 10/28/16 13:26 Troponin T 0.040 ng/mL (0.00-0.029) H D 10/28/16 13:26 C-Reactive Protein 33.20 mg/dL (0.00-1.30) H 10/27/16 20:05 NT-Pro-B Natriuret Pep 91042 pg/mL (0-900) H 10/27/16 20:05 Triglycerides 179 mg/dL (2-149) H 10/27/16 20:05 Cholesterol 141 mg/dL (50-199) 10/27/16 20:05 LDL Cholesterol Direct 63 mg/dL (50-130) 10/27/16 20:05 HDL Cholesterol 43 mg/dL (40-59) 10/27/16 20:05 Cholesterol/HDL Ratio 3.27 % 10/27/16 20:05 Urine Color Yellow (Yellow) 10/29/16 Unknown Urine Turbidity Slightly-cloudy (Clear) 10/29/16 Unknown Urine pH 5.0 (5.0-7.0) 10/29/16 Unknown Ur Specific [place] 1.017 (1.003-1.030) 10/29/16 Unknown Urine Protein 100 mg/dl mg/dL (Negative) 10/29/16 Unknown Urine Glucose (UA) Neg mg/dL (Negative) 10/29/16 Unknown Urine Ketones Tr mg/dL (Negative) 10/29/16 Unknown Urine Blood Mod (Negative) 10/29/16 Unknown Urine Nitrite Neg (Negative) 10/29/16 Unknown Urine Bilirubin Neg (Negative) 10/29/16 Unknown Urine Urobilinogen < 2.0 mg/dL (<2.0) 10/29/16 Unknown Ur Leukocyte Esterase Lg (Negative) 10/29/16 Unknown Urine WBC (Auto) 38.0 /HPF (0.0-6.0) H 10/29/16 Unknown Urine RBC (Auto) 9.0 /HPF (0.0-6.0) 10/29/16 Unknown U Epithel Cells (Auto) 6.0 /HPF (0-13.0) 10/29/16 Unknown Urine Bacteria (Auto) 1+ /HPF (Negative) 10/29/16 Unknown Ur Transition Epith Cell 1 /HPF 10/29/16 Unknown Urine Mucus Few /HPF 10/29/16 Unknown
[2016-10-29] MEDS ORDERED: LEVAQUIN 500MG/100ML 100 ML IV SCH (22:00)
--- NOTE | 2016-10-30 07:10 | Progress Note ---
Assessment and Plan - Patient Problems (1) ESRD (end stage renal disease) on dialysis Current Visit: Yes Status: Chronic Plan to address problem: Patient scheduled to get hemodialysis today. (2) Bacteremia due to Enterococcus Current Visit: Yes Status: Acute Plan to address problem: ID consulted. Will contact Vascular if the AVG is usable. (3) Sepsis Current Visit: Yes Status: Acute Qualifiers: Sepsis type: sepsis due to unspecified organism Qualified Code(s): A41.9 - Sepsis, unspecified organism Plan to address problem: Follow ID recs. (4) Anemia, chronic renal failure Current Visit: No Status: Chronic Subjective Date of service: 10/30/16 Interval history: Patient is feeling better today. Objective - Vital Signs Vital signs: Vital Signs - 12hr 10/29/16 10/29/16 10/30/16 21:37 22:00 00:00 Temperature 96.1 F L Pulse Rate 86 Pulse Rate [ 85 Right] Respiratory 20 Rate Blood Pressure 153/70 Blood Pressure 171/72 [Right Arm] O2 Sat by Pulse 99 100 Oximetry - General Appearance General appearance: well-developed, well-nourished, frail, other (no distress, left arm AVG, right IJ tunnel catheter) EENT: PERRL, mucous membranes moist, hearing intact, vision intact Neck: no JVD, supple Respiratory: Present: Clear to Ascultation Cardiology: regular, S1S2, no murmurs Gastrointestinal: normoactive bowel sounds, no tenderness, no distended Integumentary: no rash Neurologic: no focal deficit, no asterixis, alert and oriented x3, CN 3-12 intact Musculoskeletal: other Psychiatric: mood/affect appropriate, cooperative - Lab 10/30/16 15:20 10/30/16 15:20 Most recent lab results Calcium 8.3 mg/dL (8.4-10.2) L 10/28/16 06:47 Phosphorus 2.5 mg/dL (2.5-4.5) 10/27/16 20:05 Magnesium 2.0 mg/dL (1.7-2.3) 10/27/16 20:05
[2016-10-30] MEDS ORDERED: ALBURX 25% (ALBUMIN) IV PRN (08:39)
[2016-10-30] MEDS ORDERED: NACL 0.9% 1000 ML 100 ML IV PRN (08:39)
--- NOTE | 2016-10-30 09:50 | Echocardiography Report ---
Transthoracic Echocardiogram Indication: ABN CARDIAC ENZYME BP: 15 Conclusions *The study is technically limited due to poor acoustic windows. *The estimated ejection fraction is 50-55%. *Global left ventricular systolic function is normal. *Abnormal left ventricular diastolic function is observed. *The left atrium is normal in size with no visual thrombus identified. *There is no evidence of aortic regurgitation. *There is mild mitral regurgitation. *There is mild to moderate tricuspid regurgitation. *The right ventricular systolic pressure is estimated to be 35-40 mmHg. *There is no evidence of pulmonic regurgitation. Findings Procedure Info: The study quality is technically difficult. The study is technically limited due to poor acoustic windows. The study was technically limited due to the patient's inability to lay in the left lateral decubitus position. Left Ventricle: The left ventricular chamber size is normal. Global left ventricular systolic function is normal. The estimated ejection fraction is 50-55%. Abnormal left ventricular diastolic function is observed. There is an E to A reversal in the mitral valve flow pattern suggestive of diastolic dysfunction. Left Atrium: The left atrium is normal in size with no visual thrombus identified. The left atrium is mildly dilated. Right Ventricle: The right ventricular cavity size is normal. The right ventricular global systolic function is normal. Right Atrium: The right atrium appears normal. The interatrial septum appears normal. Aortic Valve: The aortic valve structure is normal. There is no evidence of aortic regurgitation. There is moderate aortic stenosis. Mitral Valve: The mitral valve leaflets appear normal. There is mild mitral regurgitation. There is no evidence of mitral stenosis. Tricuspid Valve: The tricuspid valve leaflets are normal. There is mild to moderate tricuspid regurgitation. The right ventricular systolic pressure is estimated to be 35-40 mmHg. There is no tricuspid stenosis. Pulmonic Valve: The pulmonic valve appears normal. There is no evidence of pulmonic regurgitation. There is no pulmonic stenosis. Pericardium: There is no pericardial effusion. Aorta: There is no dilatation of the ascending aorta. Venous: The inferior vena cava appears normal. The inferior vena cava appears normal in size. There is a greater than 50% respiratory change in the inferior vena cava dimension. Measurements Chambers MM Name Value Normal Range Ao root diameter (MM) 2.9 cm (2 - 3.7) LA dimension (AP) MM 3.8 cm (1.9 - 4) LA:Ao ratio (MM) 1.31 ratio - AV cusp separation (MM) 1.9 cm (1.5 - 2.6) Chambers 2D Name Value Normal Range RVIDd (AP) 2D 3.63 cm (0.9 - 2.6) IVSd (2D) 1.13 cm (0.6 - 1.1) LVPWd (2D) 0.87 cm (0.6 - 1.1) IVS:LVPW ratio (2D) 1.3 ratio - LVIDd (2D) 4.13 cm (3.7 - 5.6) LVIDs (2D) 2.87 cm (2 - 3.8) LV FS (Teichholz) (2D) 30.5 % - LV FS (cube) (2D) 30.5 % - EF Teichholz (2D) 58.4 % - Ao root diameter (2D) 1.7 cm (2 - 3.7) LA dimension (AP) 2D 3.2 cm (1.9 - 4) LA:Ao ratio (2D) 1.88 ratio - Volumes/Mass Name Value Normal Range LA ESV SP 4CH (MOD) 62 ml - LA ESV SP 2CH (MOD) 95 ml - LA ESV BP (MOD) 76 ml - LA ESV BP (MOD) index 43.4 ml/m2 - Diastolic/Systolic Function Name Value Normal Range MV E-wave Vmax 1.29 m/sec - MV deceleration time 95 msec - MV A-wave Vmax 1.92 m/sec - MV E:A ratio 0.7 ratio - LV septal e' Vmax 0.06 m/sec - LV lateral e' Vmax 0.06 m/sec - LV E:e' septal ratio 22.1 ratio - LV E:e' lateral ratio 20.3 ratio - Aortic Valve Name Value Normal Range AV Vmax 1.52 m/sec - AV VTI 28.7 cm - AV peak gradient 9 mmHg - AV mean gradient 6 mmHg - LVOT diameter 1.6 cm - LVOT Vmax 1.49 m/sec - LVOT VTI 27.2 cm - LVOT peak gradient 9 mmHg - LVOT mean gradient 5 mmHg - SV LVOT 55 ml - ESTUARDO (continuity Vmax) 1.97 cm2 - ESTUARDO (continuity VTI) 1.9 cm2 - Mitral Valve Name Value Normal Range MR Vmax 5.68 m/sec - Tricuspid Valve Name Value Normal Range TR Vmax 3.06 m/sec - TR peak gradient 37 mmHg - Pulmonic Valve/Qp:Qs Name Value Normal Range PV Vmax 1.05 m/sec - PV peak gradient 4 mmHg - PV acceleration time 129 msec -
[2016-10-30] MEDS ORDERED: HEPARIN IV PRN (10:23)
[2016-10-30] MEDS: NORMODYNE PO SCH ×3 (11:12→22:23)
[2016-10-30] MEDS: APRESOLINE PO SCH ×3 (11:12→22:22)
--- NOTE | 2016-10-30 11:20 | Consultation ---
History of Present Illness - Reason for Consult Consult date: 10/30/16 Bacteremia; Back pain Requesting physician: NISHA GREEN - History of Present Illness Bebo Freeman is a 81 y/o female with ESRF on maintenance HD, HTN, CHF, COPD and chronic hepatitis C who was admitted to [facility] on 10/29 with increasing left sided musculoskeletal pain, increasing generalized weakness and subjective fevers with some mild chills. She has chronic low back pain but this pain has been different and is worse when she coughs and touches the area. She knows of no injury to her chest. No friends or family members have been sick. She has bee dialysed via a right IJ PC that was placed on 08/24/16 and has been functioning well and is asymptomatic. She also had creation of a LUE AVF on which has been used "a couple of times" but she states is not to be used until "next week." Admitting blood cultures are growing Enterococcus. Review of systems General: see HPI HEENT: no odynophagia, no dysphagia, no oral lesions, no vision changes CV: no exertional chest pain, no palpitations Chest: see HPI. Pleuritic quality/musculoskeletal chest pain. GI: no abdominal pain, no N/V, no diarrhea : no change in urinary frequency, no dysuria, no hematuria Skin: no rashes; Ext: No muscle or joint pain, No edema Neuro: no headaches, no numbness/tingling, no tremors Endocrine: No history of diabetes. Psych: no anxiety, no depression Infectious diseases: History of Hep C. No known HIV risk factors Medications and Allergies Allergies Allergy/AdvReac Type Severity Reaction Status Date / Time enalapril maleate Allergy Severe THROAT Verified 10/27/16 16:42 [From Vasotec] SWELLING enalaprilat dihydrate Allergy Severe THROAT Verified 10/27/16 16:42 [From Vasotec] SWELLING Penicillins Allergy Severe Itching Verified 10/27/16 16:42 Home Medications Medication Instructions Recorded Confirmed Last Taken Type Cardizem 120 mg PO BID 08/30/16 10/27/16 Unknown History Labetalol 200 mg PO BID 08/30/16 10/27/16 Unknown History Singulair 10 mg PO DAILY 08/30/16 10/27/16 Unknown History hydrALAZINE 50 mg PO BID 08/30/16 10/27/16 Unknown History Active Meds: Active Medications Acetaminophen (Tylenol) 650 mg PO Q4H PRN PRN Reason: Pain MILD(1-3)/Fever >100.5/MCLEAN Albumin Human (Alburx 25% (Albumin)) 12.5 gm IV ALYCE PRN PRN Reason: Hypotension Bisacodyl (Dulcolax) 10 mg VT QDAY PRN PRN Reason: Constipation unrelieved by MOM Enoxaparin Sodium (Lovenox) 30 mg SUB-Q QDAY [facility] Last Admin: 10/29/16 09:44 Dose: 30 mg Epoetin Rory (Procrit) 10,000 unit SUB-Q ALYCE PRN PRN Reason: hemodialysis Heparin Sodium (Porcine) (Heparin) 5,000 unit IV ALYCE PRN PRN Reason: hemodialysis Hydralazine HCl (Apresoline) 50 mg PO BID [facility] Last Admin: 10/30/16 11:12 Dose: Not Given Levofloxacin/Dextrose (Levaquin 500mg/100ml) 100 mls @ 100 mls/hr IV Q48H [facility] Last Admin: 10/29/16 21:37 Dose: 100 mls/hr Sodium Chloride (Nacl 0.9% 1000 Ml) 100 mls @ 999 mls/hr IV ALYCE PRN PRN Reason: Hypotension Vancomycin HCl (Vancomycin/Ns 1 Gm/250 Ml) 250 mls @ 167 mls/hr IV ONCE ONE Stop: 10/30/16 19:29 Labetalol HCl (Normodyne) 200 mg PO BID [facility] Last Admin: 10/30/16 11:12 Dose: Not Given Magnesium Hydroxide (Milk Of Magnesia) 30 ml PO Q4H PRN PRN Reason: Constipation Montelukast Sodium (Singulair) 10 mg PO DAILY [facility] Last Admin: 10/29/16 09:44 Dose: 10 mg Ondansetron HCl (Zofran) 4 mg IV Q8H PRN PRN Reason: N/V unrelieved by Reglan Oxycodone/Acetaminophen (Percocet 5/325) 1 tab PO Q6H PRN PRN Reason: Pain, Moderate (4-6) Last Admin: 10/29/16 18:24 Dose: 1 tab Vancomycin HCl (Vancomycin Pharmacy To Dose) 1 each IV PKCONSULT [facility] PRN Reason: Protocol Physical Examination - Physical Exam Narrative exam: GENERAL: Well-developed, well-nourished appearing female who is alert and in no acute distress. She is currently on HD. HEAD: Normocephalic. No lesions seen. EYES: Pupils are equal reactive to light and accommodation. There is no scleral icterus. Optic fundi are not examined. EARS: Tympanic membranes are normal. THROAT: Oropharynx is normal with no evidence of oral candidiasis or pharyngitis. Poor dentition but no obvious dental infection. NECK: Supple. No enlargement of the thyroid gland. No significant cervical lymphadenopathy. No jugular venous distention at 30. LUNGS: Clear with no adventitious sounds. CHEST: Right IJ PC with no signs of infection at the insertion site. Exquisite tenderness over the left lateral, lower chest with no other objective abnormalities. HEART: Regular rate. S1 and S2 are normal. There are no gallops, clicks or rubs heard. There is a grade II/ SILVER heard best over the LLSB. No diastolic murmur. ABDOMEN: Soft and nontender. Liver and spleen are not palpably enlarged or tender. No palpable masses. Bowel sounds are normoactive. EXTREMITIES: No rash, peripheral lymphadenopathy, clubbing or edema. LUE AVF with palpable thrill and audible bruit and no signs of infection. : Not examined. No Lee. NEUROLOGIC: No focal findings. - Constitutional Vitals: Vital Signs Temp Pulse Resp BP Pulse Ox 98.1 F 84 18 160/67 100 10/30/16 09:20 10/30/16 10:15 10/30/16 09:20 10/30/16 10:15 10/30/16 08:15 Temperature -Last 24 Hours Temperature 98.1 F Temperature 98.1 F Temperature 96.1 F Temperature 98.4 F Results - Labs CBC & Chem 7: 10/28/16 06:47 10/28/16 06:47 Labs: Lab results Laboratory Tests 10/27/16 20:05 Lactic Acid 1.6 Laboratory Tests 10/29/16 Unknown Urine WBC (Auto) 38.0 H Urine RBC (Auto) 9.0 Urine Bacteria (Auto) 1+ Microbiology 10/27/16 20:05 Peripheral/Venous Blood Culture - Final Enterococcus faecalis (penicillin sensitive) 10/29/16 14:00 Peripheral/Venous Blood Culture - Preliminary Culture in Progress 10/29/16 13:54 Peripheral/Venous Blood Culture - Preliminary Culture in Progress Imagin/20: Thoracic spine MRI: Negative except for hemangiomas at T6, T10 and L1 Lumbar spine MRI: No signs of infection. 10/28: CXR: No acute findings Chest CT: Borderline enlarged mediastinal lymph nodes. Advanced COPD with cystic change and fibrosis at the lung bases. Right basilar lung infiltrate Assessment and Plan Current antibiotics: Levaquin 500 mg IV q48h 10/27 --> Vancomycin (pulse dosing) 10/27 --> ASSESSMENT: Bebo Freeman is a 81 y/o female with ESRF on maintenance HD, HTN, CHF, COPD and chronic hepatitis C who was admitted to [facility] on 10/29 with increasing left sided musculoskeletal pain, increasing generalized weakness and subjective fevers with some mild chills. Admitting blood cultures are growing Enterococcus. Problem list: 1. Enterococcal bacteremia -Most likely source is the PermCath -Rule out endocarditis, etc. -Urinalysis without signficant pyuria or bacteriuria 2. Leukocytosis -Likely secondary to #1 3. ESRD -Chronic HD -Right IJ PC placed 08/24/16 4. Hypertension 5. COPD 6. Musculoskeletal chest pain -Rule out embolic process although doubt PLAN: 1. Repeat blood cultures as have been done 2. If still positive will need to remove PC if feasible and hopefully AV access could be used 3. Transthoracic echo as has been ordered. Depending upon what that shows and results of repeat blood cultures, may need to consider JEAN-CLAUDE 4. Supportive measures as are being done. 5. Will change antibiotics to IV ampicillin Thank you for this consultation. We will follow with you. Pacheco Alford MD [facility] Office: [phone]
[2016-10-30] MEDS: PROCRIT SUB-Q PRN (12:07)
[2016-10-30] MEDS: SINGULAIR PO SCH (13:36)
[2016-10-30] MEDS: PERCOCET 5/325 PO PRN ×2 (13:36→22:27)
[2016-10-30] MEDS: LOVENOX SUB-Q SCH (13:37)
--- NOTE | 2016-10-30 14:29 | Progress Note ---
Assessment and Plan Assessment and plan: --Sepsis secondary to enterococcus bacteremia Continue current IV antibiotics Follow repeat cultures, ID evaluation noted and appreciated Echocardiogram ,no evidence of vegetations, possible JEAN-CLAUDE if needed --Possible pneumonia, community-acquired Continue current antibiotics, follow blood culture --Sepsis Severe leukocytosis Trending down , Rule out C. difficile --Hypertension; Moderate control, continue current antihypertensives and when necessary medications --Back pain/secondary to degenerative spine disease MRI cervical spine, MRI thoracic spine, MRI lumbosacral spine negative for abscess Findings consistent with degenerative disc and spine disease Continue pain medications supportive care, physical therapy occupational therapy when patient is more stable --End-stage renal disease on hemodialysis; Dialysis per scheduled, nephrology following --Abnormal cardiac enzymes; Probably secondary to end-stage renal disease, patient does not have cardiac symptoms However in view of patient's multiple risk factors acute coronary syndrome needs to be ruled out, serial cardiac enzymes and EKG --Acute exacerbation of COPD; Oxygen titrated to O2 sats more than 90%, nebulizers as needed, patient is already on antibiotics --Acute on chronic congestive heart failure Managed with diuretics and dialysis and fluid removal Consider cardiology evaluation if needed --DVT prophylaxis with heparin --Status; full code Consults and recommendations noted and appreciated Continue current management, plan of care discussed with the patient as well as the family members History Interval history: Patient seen and evaluated this morning medical records reviewed No new events reported by the nursing staff Blood cultures positive for enterococcus ID consultation requested Patient denies chest pain shortness of breath, alert awake oriented 3 not in acute distress Vital signs reviewed Hospitalist Physical - Constitutional Vitals: Temp Pulse Resp BP Pulse Ox 98.1 F 88 20 170/69 100 10/30/16 12:35 10/30/16 12:35 10/30/16 12:35 10/30/16 12:35 10/30/16 08:15 General appearance: Present: no acute distress, well-nourished - EENT Eyes: Present: PERRL, EOM intact - Neck Neck: Present: supple, normal ROM - Respiratory Respiratory effort: normal Respiratory: bilateral: diminished, rales, negative: rhonchi, wheezing - Cardiovascular Rhythm: regular Heart Sounds: Present: S1 & S2 - Extremities Extremities: no ischemia, pulses intact, pulses symmetrical - Abdominal General gastrointestinal: soft, non-tender, non-distended, normal bowel sounds - Integumentary Integumentary: Present: clear, warm - Psychiatric Psychiatric: appropriate mood/affect, cooperative - Neurologic Neurologic: CNII-XII intact, moves all extremities Results - Labs CBC & Chem 7: 10/28/16 06:47 10/28/16 06:47 Labs: Laboratory Last Values WBC 32.6 K/mm3 (4.5-11.0) H 10/28/16 06:47 RBC 3.70 M/mm3 (3.65-5.03) 10/28/16 06:47 Hgb 10.7 gm/dl (10.1-14.3) 10/28/16 06:47 Hct 33.6 % (30.3-42.9) 10/28/16 06:47 MCV 91 fl (79-97) 10/28/16 06:47 MCH 29 pg (28-32) 10/28/16 06:47 MCHC 32 % (30-34) 10/28/16 06:47 RDW 15.9 % (13.2-15.2) H 10/28/16 06:47 Plt Count 214 K/mm3 (140-440) 10/28/16 06:47 Add Manual Diff Complete 10/28/16 06:47 Total Counted 200 10/28/16 06:47 Seg Neutrophils % Hims Coder 10/28/16 06:47 Seg Neuts % (Manual) 89.0 % (40.0-70.0) H 10/28/16 06:47 Band Neutrophils % 0.5 % 10/28/16 06:47 Lymphocytes % (Manual) 4.5 % (13.4-35.0) L 10/28/16 06:47 Reactive Lymphs % (Man) 0 % 10/28/16 06:47 Monocytes % (Manual) 5.5 % (0.0-7.3) 10/28/16 06:47 Eosinophils % (Manual) 0 % (0.0-4.3) 10/28/16 06:47 Basophils % (Manual) 0.5 % (0.0-1.8) 10/28/16 06:47 Metamyelocytes % 0 % 10/28/16 06:47 Myelocytes % 0 % 10/28/16 06:47 Promyelocytes % 0 % 10/28/16 06:47 Blast Cells % 0 % 10/28/16 06:47 Nucleated RBC % Not Reportable 10/28/16 06:47 Seg Neutrophils # Man 29.0 K/mm3 (1.8-7.7) H 10/28/16 06:47 Band Neutrophils # 0.2 K/mm3 10/28/16 06:47 Lymphocytes # (Manual) 1.5 K/mm3 (1.2-5.4) 10/28/16 06:47 Abs React Lymphs (Man) 0.0 K/mm3 10/28/16 06:47 Monocytes # (Manual) 1.8 K/mm3 (0.0-0.8) H 10/28/16 06:47 Eosinophils # (Manual) 0.0 K/mm3 (0.0-0.4) 10/28/16 06:47 Basophils # (Manual) 0.2 K/mm3 (0.0-0.1) H 10/28/16 06:47 Metamyelocytes # 0.0 K/mm3 10/28/16 06:47 Myelocytes # 0.0 K/mm3 10/28/16 06:47 Promyelocytes # 0.0 K/mm3 10/28/16 06:47 Blast Cells # 0.0 K/mm3 10/28/16 06:47 WBC Morphology Not Reportable 10/28/16 06:47 Hypersegmented Neuts Not Reportable 10/28/16 06:47 Hyposegmented Neuts Not Reportable 10/28/16 06:47 Hypogranular Neuts Not Reportable 10/28/16 06:47 Smudge Cells Not Reportable 10/28/16 06:47 Toxic Granulation Not Reportable 10/28/16 06:47 Toxic Vacuolation Not Reportable 10/28/16 06:47 Dohle Bodies Not Reportable 10/28/16 06:47 Pelger-Huet Anomaly Not Reportable 10/28/16 06:47 Wayne Rods Not Reportable 10/28/16 06:47 Platelet Estimate Consistent w auto 10/28/16 06:47 Clumped Platelets Not Reportable 10/28/16 06:47 Plt Clumps, EDTA Not Reportable 10/28/16 06:47 Large Platelets Not Reportable 10/28/16 06:47 Giant Platelets Not Reportable 10/28/16 06:47 Platelet Satelliting Not Reportable 10/28/16 06:47 Plt Morphology Comment Not Reportable 10/28/16 06:47 RBC Morphology Not Reportable 10/28/16 06:47 Dimorphic RBCs Not Reportable 10/28/16 06:47 Polychromasia Not Reportable 10/28/16 06:47 Hypochromasia Not Reportable 10/28/16 06:47 Poikilocytosis Not Reportable 10/28/16 06:47 Anisocytosis 1+ 10/28/16 06:47 Microcytosis Not Reportable 10/28/16 06:47 Macrocytosis Not Reportable 10/28/16 06:47 Spherocytes Not Reportable 10/28/16 06:47 Pappenheimer Bodies Not Reportable 10/28/16 06:47 Sickle Cells Not Reportable 10/28/16 06:47 Target Cells Not Reportable 10/28/16 06:47 Tear Drop Cells Not Reportable 10/28/16 06:47 Ovalocytes Not Reportable 10/28/16 06:47 Helmet Cells Not Reportable 10/28/16 06:47 Hackett-Lavelle Bodies Not Reportable 10/28/16 06:47 Frederick Rings Not Reportable 10/28/16 06:47 Bunola Cells Not Reportable 10/28/16 06:47 Bite Cells Not Reportable 10/28/16 06:47 Crenated Cell Not Reportable 10/28/16 06:47 Elliptocytes Not Reportable 10/28/16 06:47 Acanthocytes (Spur) Not Reportable 10/28/16 06:47 Rouleaux Not Reportable 10/28/16 06:47 Hemoglobin C Crystals Not Reportable 10/28/16 06:47 Schistocytes Not Reportable 10/28/16 06:47 Malaria parasites Not Reportable 10/28/16 06:47 ESR 60 mm/Hr (0-20) 10/27/16 20:05 Domingo Bodies Not Reportable 10/28/16 06:47 Hem Pathologist Commnt No 10/28/16 06:47 POC ABG pH 7.413 (7.35-7.45) 10/27/16 20:42 POC ABG pCO2 39.4 (35-45) 10/27/16 20:42 POC ABG pO2 83 (80-105) 10/27/16 20:42 POC ABG HCO3 25.2 10/27/16 20:42 POC ABG Total CO2 26 10/27/16 20:42 POC ABG O2 Sat 96 10/27/16 20:42 POC ABG Base Excess 1 10/27/16 20:42 FiO2 24 % 10/27/16 20:42 Sodium 137 mmol/L (137-145) 10/28/16 06:47 Potassium 3.8 mmol/L (3.6-5.0) 10/28/16 06:47 Chloride 97.1 mmol/L (98-107) L 10/28/16 06:47 Carbon Dioxide 24 mmol/L (22-30) 10/28/16 06:47 Anion Gap 20 mmol/L 10/28/16 06:47 BUN 20 mg/dL (7-17) H 10/28/16 06:47 Creatinine 4.2 mg/dL (0.7-1.2) H 10/28/16 06:47 Estimated GFR 12 ml/min 10/28/16 06:47 BUN/Creatinine Ratio 4.76 % 10/28/16 06:47 Glucose 93 mg/dL (65-100) 10/28/16 06:47 Lactic Acid 1.6 mmol/L (0.7-2.0) 10/27/16 20:05 Calcium 8.3 mg/dL (8.4-10.2) L 10/28/16 06:47 Phosphorus 2.5 mg/dL (2.5-4.5) 10/27/16 20:05 Magnesium 2.0 mg/dL (1.7-2.3) 10/27/16 20:05 Total Creatine Kinase 74 units/L (30-135) 10/28/16 13:26 CK-MB (CK-2) 2.0 ng/mL (0.0-4.0) 10/28/16 13:26 CK-MB (CK-2) Rel Index 2.7 (0-4) 10/28/16 13:26 Troponin T 0.040 ng/mL (0.00-0.029) H D 10/28/16 13:26 C-Reactive Protein 33.20 mg/dL (0.00-1.30) H 10/27/16 20:05 NT-Pro-B Natriuret Pep 38549 pg/mL (0-900) H 10/27/16 20:05 Triglycerides 179 mg/dL (2-149) H 10/27/16 20:05 Cholesterol 141 mg/dL (50-199) 10/27/16 20:05 LDL Cholesterol Direct 63 mg/dL (50-130) 10/27/16 20:05 HDL Cholesterol 43 mg/dL (40-59) 10/27/16 20:05 Cholesterol/HDL Ratio 3.27 % 10/27/16 20:05 Urine Color Yellow (Yellow) 10/29/16 Unknown Urine Turbidity Slightly-cloudy (Clear) 10/29/16 Unknown Urine pH 5.0 (5.0-7.0) 10/29/16 Unknown Ur Specific [place] 1.017 (1.003-1.030) 10/29/16 Unknown Urine Protein 100 mg/dl mg/dL (Negative) 10/29/16 Unknown Urine Glucose (UA) Neg mg/dL (Negative) 10/29/16 Unknown Urine Ketones Tr mg/dL (Negative) 10/29/16 Unknown Urine Blood Mod (Negative) 10/29/16 Unknown Urine Nitrite Neg (Negative) 10/29/16 Unknown Urine Bilirubin Neg (Negative) 10/29/16 Unknown Urine Urobilinogen < 2.0 mg/dL (<2.0) 10/29/16 Unknown Ur Leukocyte Esterase Lg (Negative) 10/29/16 Unknown Urine WBC (Auto) 38.0 /HPF (0.0-6.0) H 10/29/16 Unknown Urine RBC (Auto) 9.0 /HPF (0.0-6.0) 10/29/16 Unknown U Epithel Cells (Auto) 6.0 /HPF (0-13.0) 10/29/16 Unknown Urine Bacteria (Auto) 1+ /HPF (Negative) 10/29/16 Unknown Ur Transition Epith Cell 1 /HPF 10/29/16 Unknown Urine Mucus Few /HPF 10/29/16 Unknown
[2016-10-30 15:44] LABS: Basophils % (Auto) 0.7 % (0.0-1.8); Eosinophils % (Auto) 2.2 % (0.0-4.3); Hemoglobin 11.5 gm/dl (10.1-14.3); Mean Corpuscular HGB Conc 32 % (30-34); Mean Corpuscular Hemoglobin 29 pg (28-32); Mean Corpuscular Volume 91 fl (79-97); Platelet Count 204 K/mm3 (140-440); Red Blood Count 3.95 M/mm3 (3.65-5.03); Red Cell Distribution Width 15.7 % (13.2-15.2); White Blood Count 7.7 K/mm3 (4.5-11.0)
[2016-10-30 16:04] LABS: BUN/Creatinine Ratio 4.68; Calcium 8.4 mg/dL (8.4-10.2); Chloride 95.1 mmol/L (98-107); Potassium 3.6 mmol/L (3.6-5.0)
[2016-10-30] MEDS ORDERED: VANCOMYCIN/NS 1 GM/250 ML 250 ML IV ONE (18:00)
--- NOTE | 2016-10-31 08:00 | Progress Note ---
Assessment and Plan - Patient Problems (1) ESRD (end stage renal disease) on dialysis Current Visit: Yes Status: Chronic Plan to address problem: Patient was last dialyzed yesterday. Continue hemodialysis three times a week. (2) Bacteremia due to Enterococcus Current Visit: Yes Status: Acute Plan to address problem: ID is following. Vascular consulted. (3) Sepsis Current Visit: Yes Status: Acute Qualifiers: Sepsis type: sepsis due to unspecified organism Qualified Code(s): A41.9 - Sepsis, unspecified organism Plan to address problem: Follow ID recs. (4) Anemia, chronic renal failure Current Visit: No Status: Chronic Plan to address problem: Hb is better. Subjective Date of service: 10/31/16 Interval history: Patient is feeling better. Objective - Vital Signs Vital signs: Vital Signs - 12hr 10/30/16 10/30/16 10/31/16 20:49 22:21 00:00 Temperature 98.8 F Pulse Rate [ 91 H 88 Right Radial] Respiratory 20 Rate Blood Pressure 144/66 132/61 [Right Arm] O2 Sat by Pulse 99 99 Oximetry - General Appearance General appearance: well-developed, well-nourished, other (no distress, right IJ tunnel catheter, left arm AVG) EENT: PERRL, mucous membranes moist, hearing intact, vision intact Neck: supple Respiratory: Present: Clear to Ascultation Cardiology: regular, S1S2, no murmurs Gastrointestinal: normoactive bowel sounds, no tenderness, no distended Integumentary: no rash, warm and dry Neurologic: no focal deficit, no asterixis, alert and oriented x3, CN 3-12 intact Musculoskeletal: other (no edema) Psychiatric: mood/affect appropriate, cooperative - Lab 10/31/16 09:11 10/31/16 09:11 Most recent lab results Calcium 8.4 mg/dL (8.4-10.2) 10/30/16 15:20 Phosphorus 2.5 mg/dL (2.5-4.5) 10/27/16 20:05 Magnesium 2.0 mg/dL (1.7-2.3) 10/27/16 20:05
[2016-10-31] MEDS: PERCOCET 5/325 PO PRN ×2 (09:51→18:32)
[2016-10-31] MEDS: NORMODYNE PO SCH ×2 (09:51→21:58)
[2016-10-31] MEDS: SINGULAIR PO SCH (09:51)
[2016-10-31] MEDS: APRESOLINE PO SCH ×2 (09:51→21:57)
[2016-10-31 10:16] LABS: Basophils % (Auto) 0.8 % (0.0-1.8); Hematocrit 40.7 % (30.3-42.9); Mean Corpuscular HGB Conc 32 % (30-34); Mean Corpuscular Hemoglobin 29 pg (28-32); Mean Corpuscular Volume 91 fl (79-97); Platelet Count 193 K/mm3 (140-440); Red Blood Count 4.49 M/mm3 (3.65-5.03); Red Cell Distribution Width 15.6 % (13.2-15.2); White Blood Count 8.7 K/mm3 (4.5-11.0)
[2016-10-31 10:39] LABS: BUN/Creatinine Ratio 5.31; Calcium 8.3 mg/dL (8.4-10.2)
[2016-10-31] MEDS: LOVENOX SUB-Q SCH (11:04)
[2016-10-31] MEDS: COLACE PO SCH ×2 (11:04→21:57)
--- NOTE | 2016-10-31 11:44 | Progress Note ---
Assessment and Plan Assessment and plan: --Sepsis secondary to enterococcus bacteremia Continue current IV antibiotics Follow repeat cultures, ID following Echocardiogram ,no evidence of vegetations, possible JEAN-CLAUDE if needed --Possible pneumonia, community-acquired Continue current antibiotics, follow blood culture --Leukocytosis WBC within normal range --Hypertension; Moderate control, continue current antihypertensives and when necessary medications --Back pain/secondary to degenerative spine disease MRI cervical spine, MRI thoracic spine, MRI lumbosacral spine negative for abscess Findings consistent with degenerative disc and spine disease Continue pain medications supportive care, physical therapy occupational therapy when patient is more stable --End-stage renal disease on hemodialysis; Dialysis per scheduled, nephrology following, Vascular to check HD catheter infection --Abnormal cardiac enzymes; Probably secondary to end-stage renal disease, patient does not have cardiac symptoms However in view of patient's multiple risk factors acute coronary syndrome needs to be ruled out, serial cardiac enzymes and EKG --Acute exacerbation of COPD; Oxygen titrated to O2 sats more than 90%, nebulizers as needed, patient is already on antibiotics --Acute on chronic congestive heart failure Managed with diuretics and dialysis and fluid removal Consider cardiology evaluation if needed --DVT prophylaxis with heparin --Status; full code History Interval history: Patient seen and evaluated medical records reviewed Patient feels slightly better no new complaints Denies chest pain or shortness of breath Awake oriented 3 not in acute distress Hospitalist Physical - Constitutional Vitals: Temp Pulse Resp BP Pulse Ox 98.2 F 86 20 142/63 99 10/31/16 08:00 10/31/16 08:00 10/31/16 08:00 10/31/16 08:00 10/31/16 08:00 General appearance: Present: no acute distress, well-nourished - EENT Eyes: Present: PERRL, EOM intact - Neck Neck: Present: supple, normal ROM - Respiratory Respiratory effort: normal Respiratory: bilateral: diminished, negative: rales, rhonchi, wheezing - Cardiovascular Rhythm: regular Heart Sounds: Present: S1 & S2 - Extremities Extremities: no ischemia, pulses intact, pulses symmetrical Peripheral Pulses: within normal limits - Abdominal General gastrointestinal: soft, non-tender, non-distended, normal bowel sounds - Integumentary Integumentary: Present: clear, warm - Psychiatric Psychiatric: appropriate mood/affect, cooperative - Neurologic Neurologic: CNII-XII intact, moves all extremities Results - Labs CBC & Chem 7: 10/31/16 09:11 10/31/16 09:11 Labs: Laboratory Last Values WBC 8.7 K/mm3 (4.5-11.0) 10/31/16 09:11 RBC 4.49 M/mm3 (3.65-5.03) 10/31/16 09:11 Hgb 13.0 gm/dl (10.1-14.3) 10/31/16 09:11 Hct 40.7 % (30.3-42.9) 10/31/16 09:11 MCV 91 fl (79-97) 10/31/16 09:11 MCH 29 pg (28-32) 10/31/16 09:11 MCHC 32 % (30-34) 10/31/16 09:11 RDW 15.6 % (13.2-15.2) H 10/31/16 09:11 Plt Count 193 K/mm3 (140-440) 10/31/16 09:11 Lymph % (Auto) 14.7 % (13.4-35.0) 10/31/16 09:11 [place] % (Auto) 12.9 % (0.0-7.3) H 10/31/16 09:11 Eos % (Auto) 2.0 % (0.0-4.3) 10/31/16 09:11 Baso % (Auto) 0.8 % (0.0-1.8) 10/31/16 09:11 Lymph # 1.3 K/mm3 (1.2-5.4) 10/31/16 09:11 [place] # 1.1 K/mm3 (0.0-0.8) H 10/31/16 09:11 Eos # 0.2 K/mm3 (0.0-0.4) 10/31/16 09:11 Baso # 0.1 K/mm3 (0.0-0.1) 10/31/16 09:11 Add Manual Diff Complete 10/28/16 06:47 Total Counted 200 10/28/16 06:47 Seg Neutrophils % 69.6 % (40.0-70.0) 10/31/16 09:11 Seg Neuts % (Manual) 89.0 % (40.0-70.0) H 10/28/16 06:47 Band Neutrophils % 0.5 % 10/28/16 06:47 Lymphocytes % (Manual) 4.5 % (13.4-35.0) L 10/28/16 06:47 Reactive Lymphs % (Man) 0 % 10/28/16 06:47 Monocytes % (Manual) 5.5 % (0.0-7.3) 10/28/16 06:47 Eosinophils % (Manual) 0 % (0.0-4.3) 10/28/16 06:47 Basophils % (Manual) 0.5 % (0.0-1.8) 10/28/16 06:47 Metamyelocytes % 0 % 10/28/16 06:47 Myelocytes % 0 % 10/28/16 06:47 Promyelocytes % 0 % 10/28/16 06:47 Blast Cells % 0 % 10/28/16 06:47 Nucleated RBC % Not Reportable 10/28/16 06:47 Seg Neutrophils # 6.1 K/mm3 (1.8-7.7) 10/31/16 09:11 Seg Neutrophils # Man 29.0 K/mm3 (1.8-7.7) H 10/28/16 06:47 Band Neutrophils # 0.2 K/mm3 10/28/16 06:47 Lymphocytes # (Manual) 1.5 K/mm3 (1.2-5.4) 10/28/16 06:47 Abs React Lymphs (Man) 0.0 K/mm3 10/28/16 06:47 Monocytes # (Manual) 1.8 K/mm3 (0.0-0.8) H 10/28/16 06:47 Eosinophils # (Manual) 0.0 K/mm3 (0.0-0.4) 10/28/16 06:47 Basophils # (Manual) 0.2 K/mm3 (0.0-0.1) H 10/28/16 06:47 Metamyelocytes # 0.0 K/mm3 10/28/16 06:47 Myelocytes # 0.0 K/mm3 10/28/16 06:47 Promyelocytes # 0.0 K/mm3 10/28/16 06:47 Blast Cells # 0.0 K/mm3 10/28/16 06:47 WBC Morphology Not Reportable 10/28/16 06:47 Hypersegmented Neuts Not Reportable 10/28/16 06:47 Hyposegmented Neuts Not Reportable 10/28/16 06:47 Hypogranular Neuts Not Reportable 10/28/16 06:47 Smudge Cells Not Reportable 10/28/16 06:47 Toxic Granulation Not Reportable 10/28/16 06:47 Toxic Vacuolation Not Reportable 10/28/16 06:47 Dohle Bodies Not Reportable 10/28/16 06:47 Pelger-Huet Anomaly Not Reportable 10/28/16 06:47 Wayne Rods Not Reportable 10/28/16 06:47 Platelet Estimate Consistent w auto 10/28/16 06:47 Clumped Platelets Not Reportable 10/28/16 06:47 Plt Clumps, EDTA Not Reportable 10/28/16 06:47 Large Platelets Not Reportable 10/28/16 06:47 Giant Platelets Not Reportable 10/28/16 06:47 Platelet Satelliting Not Reportable 10/28/16 06:47 Plt Morphology Comment Not Reportable 10/28/16 06:47 RBC Morphology Not Reportable 10/28/16 06:47 Dimorphic RBCs Not Reportable 10/28/16 06:47 Polychromasia Not Reportable 10/28/16 06:47 Hypochromasia Not Reportable 10/28/16 06:47 Poikilocytosis Not Reportable 10/28/16 06:47 Anisocytosis 1+ 10/28/16 06:47 Microcytosis Not Reportable 10/28/16 06:47 Macrocytosis Not Reportable 10/28/16 06:47 Spherocytes Not Reportable 10/28/16 06:47 Pappenheimer Bodies Not Reportable 10/28/16 06:47 Sickle Cells Not Reportable 10/28/16 06:47 Target Cells Not Reportable 10/28/16 06:47 Tear Drop Cells Not Reportable 10/28/16 06:47 Ovalocytes Not Reportable 10/28/16 06:47 Helmet Cells Not Reportable 10/28/16 06:47 Hackett-Pendroy Bodies Not Reportable 10/28/16 06:47 [place] Rings Not Reportable 10/28/16 06:47 Pitts Cells Not Reportable 10/28/16 06:47 Bite Cells Not Reportable 10/28/16 06:47 Crenated Cell Not Reportable 10/28/16 06:47 Elliptocytes Not Reportable 10/28/16 06:47 Acanthocytes (Spur) Not Reportable 10/28/16 06:47 Rouleaux Not Reportable 10/28/16 06:47 Hemoglobin C Crystals Not Reportable 10/28/16 06:47 Schistocytes Not Reportable 10/28/16 06:47 Malaria parasites Not Reportable 10/28/16 06:47 ESR 60 mm/Hr (0-20) 10/27/16 20:05 Domingo Bodies Not Reportable 10/28/16 06:47 Hem Pathologist Commnt No 10/28/16 06:47 POC ABG pH 7.413 (7.35-7.45) 10/27/16 20:42 POC ABG pCO2 39.4 (35-45) 10/27/16 20:42 POC ABG pO2 83 (80-105) 10/27/16 20:42 POC ABG HCO3 25.2 10/27/16 20:42 POC ABG Total CO2 26 10/27/16 20:42 POC ABG O2 Sat 96 10/27/16 20:42 POC ABG Base Excess 1 10/27/16 20:42 FiO2 24 % 10/27/16 20:42 Sodium 136 mmol/L (137-145) L 10/31/16 09:11 Potassium 4.0 mmol/L (3.6-5.0) 10/31/16 09:11 Chloride 97.0 mmol/L (98-107) L 10/31/16 09:11 Carbon Dioxide 22 mmol/L (22-30) 10/31/16 09:11 Anion Gap 21 mmol/L 10/31/16 09:11 BUN 25 mg/dL (7-17) H 10/31/16 09:11 Creatinine 4.7 mg/dL (0.7-1.2) H 10/31/16 09:11 Estimated GFR 11 ml/min 10/31/16 09:11 BUN/Creatinine Ratio 5.31 % 10/31/16 09:11 Glucose 115 mg/dL (65-100) H 10/31/16 09:11 Lactic Acid 1.6 mmol/L (0.7-2.0) 10/27/16 20:05 Calcium 8.3 mg/dL (8.4-10.2) L 10/31/16 09:11 Phosphorus 2.5 mg/dL (2.5-4.5) 10/27/16 20:05 Magnesium 2.0 mg/dL (1.7-2.3) 10/27/16 20:05 Total Creatine Kinase 74 units/L (30-135) 10/28/16 13:26 CK-MB (CK-2) 2.0 ng/mL (0.0-4.0) 10/28/16 13:26 CK-MB (CK-2) Rel Index 2.7 (0-4) 10/28/16 13:26 Troponin T 0.040 ng/mL (0.00-0.029) H D 10/28/16 13:26 C-Reactive Protein 33.20 mg/dL (0.00-1.30) H 10/27/16 20:05 NT-Pro-B Natriuret Pep 85138 pg/mL (0-900) H 10/27/16 20:05 Triglycerides 179 mg/dL (2-149) H 10/27/16 20:05 Cholesterol 141 mg/dL (50-199) 10/27/16 20:05 LDL Cholesterol Direct 63 mg/dL (50-130) 10/27/16 20:05 HDL Cholesterol 43 mg/dL (40-59) 10/27/16 20:05 Cholesterol/HDL Ratio 3.27 % 10/27/16 20:05 Urine Color Yellow (Yellow) 10/29/16 Unknown Urine Turbidity Slightly-cloudy (Clear) 10/29/16 Unknown Urine pH 5.0 (5.0-7.0) 10/29/16 Unknown Ur Specific [place] 1.017 (1.003-1.030) 10/29/16 Unknown Urine Protein 100 mg/dl mg/dL (Negative) 10/29/16 Unknown Urine Glucose (UA) Neg mg/dL (Negative) 10/29/16 Unknown Urine Ketones Tr mg/dL (Negative) 10/29/16 Unknown Urine Blood Mod (Negative) 10/29/16 Unknown Urine Nitrite Neg (Negative) 10/29/16 Unknown Urine Bilirubin Neg (Negative) 10/29/16 Unknown Urine Urobilinogen < 2.0 mg/dL (<2.0) 10/29/16 Unknown Ur Leukocyte Esterase Lg (Negative) 10/29/16 Unknown Urine WBC (Auto) 38.0 /HPF (0.0-6.0) H 10/29/16 Unknown Urine RBC (Auto) 9.0 /HPF (0.0-6.0) 10/29/16 Unknown U Epithel Cells (Auto) 6.0 /HPF (0-13.0) 10/29/16 Unknown Urine Bacteria (Auto) 1+ /HPF (Negative) 10/29/16 Unknown Ur Transition Epith Cell 1 /HPF 10/29/16 Unknown Urine Mucus Few /HPF 10/29/16 Unknown
--- NOTE | 2016-10-31 12:05 | Progress Note ---
Assessment and Plan Current antibiotics: Vancomycin (pulse dosing) 10/27 --> Previous antibiotics: Levaquin 500 mg IV q48h 10/27 --> ASSESSMENT: Bebo Freeman is a 81 y/o female with ESRF on maintenance HD, HTN, CHF, COPD and chronic hepatitis C who was admitted to [facility] on 10/29 with increasing left sided musculoskeletal pain, increasing generalized weakness and subjective fevers with some mild chills. Admitting blood cultures are growing Enterococcus. Problem list: 1. Enterococcal bacteremia -1/2 bottles from 10/27 and 1/4 bottles (so far) from 10/29 are positive -Most likely source is the PermCath although apparently it is quite new. -Rule out endocarditis, etc. (TTE negative but technically difficult) -Urinalysis without signficant pyuria or bacteriuria 2. Leukocytosis -Likely secondary to #1 3. ESRD -Chronic HD -Right IJ PC placed 08/24/16 4. Hypertension 5. COPD 6. Musculoskeletal chest pain -Rule out embolic process although doubt PLAN: 1. Will check blood cultures again at HD 11/01 2. Will ask vascular to see 3. If she remains bacteremic will need to consider JEAN-CLAUDE 4. Supportive measures as are being done. 5. Will continue vancomycin as she is penicillin allergic Pacheco Alford MD [facility] Office: [phone] Subjective Date of service: 10/31/16 Principal diagnosis: Enterococcal bacteremia Interval history: No new complaints. Still with left, lateral chest pain that is musculoskeletal in quality. She tells me that her permacath was recently changed and is not the initial one from August. ROS: No subjective fever or chills. No nausea, vomiting or diarrhea. No shortness of breath, cough or pleuritic chest pain Objective - Exam Narrative Exam: GENERAL: Well-developed, well-nourished appearing female who is alert and in no acute distress. HEAD: Normocephalic. No lesions seen. EYES: Pupils are equal reactive to light and accommodation. There is no scleral icterus. Optic fundi are not examined. EARS: Tympanic membranes are normal. THROAT: Oropharynx is normal with no evidence of oral candidiasis or pharyngitis. Poor dentition but no obvious dental infection. NECK: Supple. No enlargement of the thyroid gland. No significant cervical lymphadenopathy. No jugular venous distention at 30. LUNGS: Clear with no adventitious sounds. CHEST: Right IJ PC with no signs of infection at the insertion site. Exquisite tenderness over the left lateral, lower chest with no other objective abnormalities. HEART: Regular rate. S1 and S2 are normal. There are no gallops, clicks or rubs heard. There is a grade II/ SILVER heard best over the LLSB. No diastolic murmur. ABDOMEN: Soft and nontender. Liver and spleen are not palpably enlarged or tender. No palpable masses. Bowel sounds are normoactive. EXTREMITIES: No rash, peripheral lymphadenopathy, clubbing or edema. LUE AVF with palpable thrill and audible bruit and no signs of infection. : Not examined. No Lee. NEUROLOGIC: No focal findings. - Constitutional Vitals: Vital Signs Temp Pulse Resp BP Pulse Ox 98.2 F 86 20 142/63 99 10/31/16 08:00 10/31/16 08:00 10/31/16 08:00 10/31/16 08:00 10/31/16 08:00 Temperature -Last 24 Hours Temperature 98.2 F Temperature 98.8 F Temperature 97 F Temperature 98.1 F - Labs CBC & Chem 7: 10/31/16 09:11 10/31/16 09:11 Labs: Abnormal lab results Microbiology 10/27/16 20:05 Peripheral/Venous Blood Culture - Final Enterococcus faecalis (penicillin sensitive) in 1/2 bottles to date 10/29/16 14:00 Peripheral/Venous Blood Culture - Preliminary 1/2 bottles with GPC in chains 10/29/16 13:54 Peripheral/Venous Blood Culture - Preliminary NGTD Imagin/21 transthoracic echocardiogram: Study is technically limited. No definite valvular vegetation seen in no atrial thrombi. 10/27: Thoracic spine MRI: Negative except for hemangiomas at T6, T10 and L1 Lumbar spine MRI: No signs of infection. 10/28: CXR: No acute findings Chest CT: Borderline enlarged mediastinal lymph nodes. Advanced COPD with cystic change and fibrosis at the lung bases. Right basilar lung infiltrate
--- NOTE | 2016-10-31 17:22 | Consultation ---
History of Present Illness - Reason for Consult Consult date: 10/31/16 Evaluation for Possible Permacath Infection - History of Present Illness This patient is an 81-year-old -[place] female that was admitted on secondary to sepsis. An infectious workup was initiated. An infectious disease consult was placed. Blood cultures were ordered and this revealed Enterococcus faecalis. She has end-stage renal disease and is on hemodialysis. A vascular surgery consult is requested to further evaluate for possible permacath infection. She is well-known to our service. She had an right internal jugular vein catheter placed initially in August 2016. She subsequently had a left upper extremity brachial artery to axillary vein AV bridge graft placed on 08/28/2016 (bovine arterial graft). She reports on the initial attempts at AV graft cannulation, she developed a hematoma. This prompted the outpatient dialysis clinic to switch back to the permacath for further hemodialysis. Her permacath has since required replacement as an outpatient due to catheter malfunction. She currently denies any pain or discomfort at the permacath exit site or her left upper extremity AV graft. Past History Past Medical History: anemia, COPD, dialysis, ESRD, heart failure, hepatitis, hypertension Past Surgical History: Other (permacath insertion with subsequent replacement due to malfunction, left upper extremity brachial artery to axillary vein bridge graft using a bovine graft) Social history: denies: smoking, alcohol abuse Medications and Allergies Allergies Allergy/AdvReac Type Severity Reaction Status Date / Time enalapril maleate Allergy Severe THROAT Verified 10/27/16 16:42 [From Vasotec] SWELLING enalaprilat dihydrate Allergy Severe THROAT Verified 10/27/16 16:42 [From Vasotec] SWELLING Penicillins Allergy Severe Itching Verified 10/27/16 16:42 Home Medications Medication Instructions Recorded Confirmed Last Taken Type Cardizem 120 mg PO BID 08/30/16 10/27/16 Unknown History Labetalol 200 mg PO BID 08/30/16 10/27/16 Unknown History Singulair 10 mg PO DAILY 08/30/16 10/27/16 Unknown History hydrALAZINE 50 mg PO BID 08/30/16 10/27/16 Unknown History Active Meds: Active Medications Acetaminophen (Tylenol) 650 mg PO Q4H PRN PRN Reason: Pain MILD(1-3)/Fever >100.5/MCLEAN Albumin Human (Alburx 25% (Albumin)) 12.5 gm IV ALYCE PRN PRN Reason: Hypotension Bisacodyl (Dulcolax) 10 mg GA QDAY PRN PRN Reason: Constipation unrelieved by MOM Docusate Sodium (Colace) 100 mg PO BID [facility] Last Admin: 10/31/16 11:04 Dose: 100 mg Enoxaparin Sodium (Lovenox) 30 mg SUB-Q QDAY [facility] Last Admin: 10/31/16 11:04 Dose: 30 mg Epoetin Rory (Procrit) 10,000 unit SUB-Q ALYCE PRN PRN Reason: hemodialysis Last Admin: 10/30/16 12:07 Dose: 10,000 unit Heparin Sodium (Porcine) (Heparin) 5,000 unit IV ALYCE PRN PRN Reason: hemodialysis Last Admin: 10/30/16 12:36 Dose: 5,000 unit Hydralazine HCl (Apresoline) 50 mg PO BID [facility] Last Admin: 10/31/16 09:51 Dose: 50 mg Sodium Chloride (Nacl 0.9% 1000 Ml) 100 mls @ 999 mls/hr IV ALYCE PRN PRN Reason: Hypotension Labetalol HCl (Normodyne) 200 mg PO BID [facility] Last Admin: 10/31/16 09:51 Dose: 200 mg Magnesium Hydroxide (Milk Of Magnesia) 30 ml PO Q4H PRN PRN Reason: Constipation Montelukast Sodium (Singulair) 10 mg PO DAILY [facility] Last Admin: 10/31/16 09:51 Dose: 10 mg Ondansetron HCl (Zofran) 4 mg IV Q8H PRN PRN Reason: N/V unrelieved by Reglan Oxycodone/Acetaminophen (Percocet 5/325) 1 tab PO Q6H PRN PRN Reason: Pain, Moderate (4-6) Last Admin: 10/31/16 09:51 Dose: 1 tab Vancomycin HCl (Vancomycin Pharmacy To Dose) 1 each IV PKCONSULT [facility] PRN Reason: Protocol Review of Systems All systems: negative Exam - Constitutional Vitals: Temp Pulse Resp BP Pulse Ox 98.3 F 81 20 139/64 99 10/31/16 15:13 10/31/16 15:13 10/31/16 15:13 10/31/16 15:13 10/31/16 15:13 General appearance: Present: no acute distress - EENT Eyes: Present: EOM intact ENT: hearing intact - Neck Neck: Present: supple, other (right internal jugular vein permacath no erythema or drainage noted around the bandage of the exit site) - Respiratory Respiratory effort: normal - Extremities Extremities: abnormal (left upper arm AV graft incisions appear to be well- healed she has a palpable thrill along the course of the AV graft there is no erythema or induration swelling or drainage appreciated.) - Psychiatric Psychiatric: appropriate mood/affect, intact judgment & insight, cooperative - Neurologic Neurologic: no focal deficits Results - Labs CBC & Chem 7: 10/31/16 09:11 10/31/16 09:11 Labs: Abnormal lab results 10/31/16 10/31/16 Range/Units 09:11 09:11 RDW 15.6 H (13.2-15.2) % Hood % (Auto) 12.9 H (0.0-7.3) % Hood # 1.1 H (0.0-0.8) K/mm3 Sodium 136 L (137-145) mmol/L Chloride 97.0 L (98-107) mmol/L BUN 25 H (7-17) mg/dL Creatinine 4.7 H (0.7-1.2) mg/dL Glucose 115 H (65-100) mg/dL Calcium 8.3 L (8.4-10.2) mg/dL Assessment and Plan This patient was admitted with a enterococcus faecalis bacteremia. She has a right internal jugular vein permacath; it was recently replaced. She status post a left upper arm AV graft that was created in August 2016. They attempted to use this as an outpatient but developed a hematoma at the cannulation site. The AV graft was rested, and they once again used the permacath for hemodialysis. This malfunctioned and required replacement. Given the persistent bacteremia a vascular surgery consult was requested to evaluate. The AV graft does not appear to be acutely infected. We'll check an ultrasound of the AV graft with volume flows. If adequate then the AV graft could be used for hemodialysis, and the permacath could be removed. This was discussed with the patient who states understanding and agrees to proceed. 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
--- NOTE | 2016-11-01 08:15 | Progress Note ---
Assessment and Plan - Patient Problems (1) ESRD (end stage renal disease) on dialysis Current Visit: Yes Status: Chronic Plan to address problem: Continue hemodialysis three times a week. Scheduled to get hemodialysis today. (2) Bacteremia due to Enterococcus Current Visit: Yes Status: Acute Plan to address problem: On Vancomycin and ID is following. Evaluated by Vascular for possible removal of the tunnel catheter. (3) Sepsis Current Visit: Yes Status: Acute Qualifiers: Sepsis type: sepsis due to unspecified organism Qualified Code(s): A41.9 - Sepsis, unspecified organism Plan to address problem: Improving. (4) Anemia, chronic renal failure Current Visit: No Status: Chronic Plan to address problem: Hb is better. (5) Primary hypertension Current Visit: Yes Status: Acute Plan to address problem: BP is fair. Subjective Date of service: 11/01/16 Principal diagnosis: Enterococcal bacteremia Interval history: Patient is feeling ok. Objective - Vital Signs Vital signs: Vital Signs - 12hr 10/31/16 10/31/16 10/31/16 21:24 21:57 21:58 Temperature Pulse Rate 88 88 Pulse Rate [ Right] Respiratory Rate Blood Pressure 142/79 142/79 Blood Pressure [Right Arm] O2 Sat by Pulse 98 Oximetry 10/31/16 10/31/16 22:00 23:00 Temperature 98.5 F Pulse Rate Pulse Rate [ 88 85 Right] Respiratory 18 20 Rate Blood Pressure Blood Pressure 147/65 [Right Arm] O2 Sat by Pulse 100 Oximetry - General Appearance General appearance: well-developed, well-nourished, other (no distress, right IJ tunnel catheter, left arm AVG) EENT: PERRL, mucous membranes moist, hearing intact, vision intact Neck: supple Respiratory: Present: Clear to Ascultation Cardiology: regular, S1S2, no murmurs Gastrointestinal: normoactive bowel sounds, no tenderness, no distended Integumentary: no rash, warm and dry Neurologic: no focal deficit, no asterixis, alert and oriented x3, CN 3-12 intact Musculoskeletal: other (no edema) Psychiatric: mood/affect appropriate, cooperative - Lab 10/31/16 09:11 10/31/16 09:11 Most recent lab results Calcium 8.3 mg/dL (8.4-10.2) L 10/31/16 09:11 Phosphorus 2.5 mg/dL (2.5-4.5) 10/27/16 20:05 Magnesium 2.0 mg/dL (1.7-2.3) 10/27/16 20:05
[2016-11-01] MEDS ORDERED: HEPARIN 10,000 UNITS/10 ML IV PRN (09:16)
[2016-11-01] MEDS ORDERED: NACL 0.9% 1000 ML 100 ML IV PRN (09:16)
--- NOTE | 2016-11-01 10:25 | Progress Note ---
Assessment and Plan Current antibiotics: Vancomycin (pulse dosing) 10/27 --> Previous antibiotics: Levaquin 500 mg IV q48h 10/27 --> ASSESSMENT: Bebo Freeman is a 81 y/o female with ESRF on maintenance HD, HTN, CHF, COPD and chronic hepatitis C who was admitted to [facility] on 10/29 with increasing left sided musculoskeletal pain, increasing generalized weakness and subjective fevers with some mild chills. Admitting blood cultures are growing Enterococcus. Problem list: 1. Enterococcal bacteremia -1/2 bottles from 10/27 and 2/4 bottles (1 set so far) from 10/29 are positive as well -Most likely source is the PermCath although apparently it is quite new. -Rule out endocarditis, etc. (TTE negative but technically difficult) -Urinalysis without signficant pyuria or bacteriuria 2. Leukocytosis -Likely secondary to #1 3. ESRD -Chronic HD -Right IJ PC placed 08/24/16 4. Hypertension 5. COPD 6. Musculoskeletal chest pain -Rule out embolic process although doubt PLAN: 1. Will check blood cultures again at HD today 2. Vascular evaluation appreciated. AV access to be evaluated and if usable PC can be d/c'd 3. If she remains bacteremic will need to consider JEAN-CLAUDE 4. Supportive measures as are being done. 5. Will continue vancomycin as she is penicillin allergic Pacheco Alford MD [facility] Office: [phone] Subjective Date of service: 11/01/16 Principal diagnosis: Enterococcal bacteremia Interval history: No new complaints. Still with left, lateral chest pain that is musculoskeletal in quality but believes it is from a fall prior to admission. ROS: No subjective fever or chills. No nausea, vomiting or diarrhea. No shortness of breath, cough or pleuritic chest pain Objective - Exam Narrative Exam: GENERAL: Well-developed, well-nourished appearing female who is alert and in no acute distress. HEAD: Normocephalic. No lesions seen. EYES: Pupils are equal reactive to light and accommodation. There is no scleral icterus. Optic fundi are not examined. EARS: Tympanic membranes are normal. THROAT: Oropharynx is normal with no evidence of oral candidiasis or pharyngitis. Poor dentition but no obvious dental infection. NECK: Supple. No enlargement of the thyroid gland. No significant cervical lymphadenopathy. No jugular venous distention at 30. LUNGS: Clear with no adventitious sounds. CHEST: Right IJ PC with no signs of infection at the insertion site. Exquisite tenderness over the left lateral, lower chest with no other objective abnormalities. HEART: Regular rate. S1 and S2 are normal. There are no gallops, clicks or rubs heard. There is a grade II/ SILVER heard best over the LLSB. No diastolic murmur. ABDOMEN: Soft and nontender. Liver and spleen are not palpably enlarged or tender. No palpable masses. Bowel sounds are normoactive. EXTREMITIES: No rash, peripheral lymphadenopathy, clubbing or edema. LUE AVF with palpable thrill and audible bruit and no signs of infection. : Not examined. No Lee. NEUROLOGIC: No focal findings. - Constitutional Vitals: Vital Signs Temp Pulse Resp BP Pulse Ox 98.1 F 90 16 154/65 100 11/01/16 08:47 11/01/16 08:47 11/01/16 08:47 11/01/16 08:47 11/01/16 10:15 Temperature -Last 24 Hours Temperature 98.1 F Temperature 98.5 F Temperature 98.3 F - Labs CBC & Chem 7: 10/31/16 09:11 10/31/16 09:11 Labs: Abnormal lab results Microbiology 10/27/16 20:05 Peripheral/Venous Blood Culture - Final Enterococcus faecalis (penicillin sensitive) in 1/2 bottles to date 10/29/16 14:00 Peripheral/Venous Blood Culture - Preliminary 2/2 bottles with Enterococcus species 10/29/16 13:54 Peripheral/Venous Blood Culture - Preliminary NGTD Imagin/21 transthoracic echocardiogram: Study is technically limited. No definite valvular vegetation seen in no atrial thrombi. 10/27: Thoracic spine MRI: Negative except for hemangiomas at T6, T10 and L1 Lumbar spine MRI: No signs of infection. 10/28: CXR: No acute findings Chest CT: Borderline enlarged mediastinal lymph nodes. Advanced COPD with cystic change and fibrosis at the lung bases. Right basilar lung infiltrate
[2016-11-01] MEDS: COLACE PO SCH ×3 (11:30→23:25)
[2016-11-01] MEDS: PERCOCET 5/325 PO PRN ×2 (11:30→21:41)
[2016-11-01] MEDS: APRESOLINE PO SCH ×2 (11:30→21:40)
[2016-11-01] MEDS: NORMODYNE PO SCH ×2 (11:30→21:40)
[2016-11-01] MEDS: LOVENOX SUB-Q SCH (12:22)
[2016-11-01] MEDS: SINGULAIR PO SCH (12:22)
--- NOTE | 2016-11-01 13:01 | Event Note ---
Date: 11/01/16 Patient's vascular labs shows that she has volume flows of approximately 8-900 mls per minute through the AV graft. Hemodialysis nurse will attempt to cannulate her graft today for dialysis. Subsequent PermCath removal if no difficulties.
[2016-11-01] MEDS ORDERED: XYLOCAINE 1% 20 mL INFILTRATI ONE (14:00)
[2016-11-01] MEDS: PROCRIT SUB-Q PRN (14:47)
--- NOTE | 2016-11-01 17:30 | Progress Note ---
Assessment and Plan Assessment and plan: --Sepsis / enterococcus bacteremia Probably permacath is the source ,Continue current IV antibiotics Follow repeat cultures, ID following TTE no evidence of vegetations, consider JEAN-CLAUDE if needed --Possible pneumonia, community-acquired Continue current antibiotics, follow blood culture --Leukocytosis WBC within normal range --Hypertension; Moderate control, continue current antihypertensives and when necessary medications --Back pain/secondary to degenerative spine disease MRI cervical spine, MRI thoracic spine, MRI lumbosacral spine negative for abscess degenerative disc and spine disease Continue pain medications supportive care, --End-stage renal disease on hemodialysis; Dialysis per scheduled, nephrology following, Vascular to check HD catheter infection --Abnormal cardiac enzymes; Nonspecific, condition denies chest pain or shortness of breath --Acute exacerbation of COPD; Oxygen titrated to O2 sats more than 90%, nebulizers as needed, patient is already on antibiotics --Acute on chronic diastolic congestive heart failure ejection fraction 50-55% Continue diuretics hemodialysis and supportive. --DVT prophylaxis with heparin --Status; full code Consults and recommendations noted and appreciated Closely monitor the patient had just the management as needed Plan of care discussed with the patient and her nurse History Interval history: Patient seen and evaluated medical records reviewed Patient complains of tiredness denies any headache dizziness Denies chest pain or shortness of breath Alert awake oriented 3 Scheduled for hemodialysis today Hospitalist Physical - Constitutional Vitals: Temp Pulse Resp BP Pulse Ox 98.1 F 94 H 22 115/47 100 11/01/16 13:35 11/01/16 17:15 11/01/16 13:35 11/01/16 17:15 11/01/16 10:15 General appearance: Present: no acute distress, well-nourished - EENT Eyes: Present: PERRL, EOM intact - Neck Neck: Present: supple, normal ROM - Respiratory Respiratory effort: normal Respiratory: bilateral: diminished, negative: rales, rhonchi, wheezing - Cardiovascular Rhythm: regular Heart Sounds: Present: S1 & S2 - Extremities Extremities: no ischemia, pulses intact, pulses symmetrical Peripheral Pulses: within normal limits - Abdominal General gastrointestinal: soft, non-tender, non-distended, normal bowel sounds - Integumentary Integumentary: Present: clear, warm - Psychiatric Psychiatric: appropriate mood/affect, cooperative - Neurologic Neurologic: CNII-XII intact, moves all extremities Results - Labs CBC & Chem 7: 10/31/16 09:11 10/31/16 09:11 Labs: Laboratory Last Values WBC 8.7 K/mm3 (4.5-11.0) 10/31/16 09:11 RBC 4.49 M/mm3 (3.65-5.03) 10/31/16 09:11 Hgb 13.0 gm/dl (10.1-14.3) 10/31/16 09:11 Hct 40.7 % (30.3-42.9) 10/31/16 09:11 MCV 91 fl (79-97) 10/31/16 09:11 MCH 29 pg (28-32) 10/31/16 09:11 MCHC 32 % (30-34) 10/31/16 09:11 RDW 15.6 % (13.2-15.2) H 10/31/16 09:11 Plt Count 193 K/mm3 (140-440) 10/31/16 09:11 Lymph % (Auto) 14.7 % (13.4-35.0) 10/31/16 09:11 [place] % (Auto) 12.9 % (0.0-7.3) H 10/31/16 09:11 Eos % (Auto) 2.0 % (0.0-4.3) 10/31/16 09:11 Baso % (Auto) 0.8 % (0.0-1.8) 10/31/16 09:11 Lymph # 1.3 K/mm3 (1.2-5.4) 10/31/16 09:11 [place] # 1.1 K/mm3 (0.0-0.8) H 10/31/16 09:11 Eos # 0.2 K/mm3 (0.0-0.4) 10/31/16 09:11 Baso # 0.1 K/mm3 (0.0-0.1) 10/31/16 09:11 Add Manual Diff Complete 10/28/16 06:47 Total Counted 200 10/28/16 06:47 Seg Neutrophils % 69.6 % (40.0-70.0) 10/31/16 09:11 Seg Neuts % (Manual) 89.0 % (40.0-70.0) H 10/28/16 06:47 Band Neutrophils % 0.5 % 10/28/16 06:47 Lymphocytes % (Manual) 4.5 % (13.4-35.0) L 10/28/16 06:47 Reactive Lymphs % (Man) 0 % 10/28/16 06:47 Monocytes % (Manual) 5.5 % (0.0-7.3) 10/28/16 06:47 Eosinophils % (Manual) 0 % (0.0-4.3) 10/28/16 06:47 Basophils % (Manual) 0.5 % (0.0-1.8) 10/28/16 06:47 Metamyelocytes % 0 % 10/28/16 06:47 Myelocytes % 0 % 10/28/16 06:47 Promyelocytes % 0 % 10/28/16 06:47 Blast Cells % 0 % 10/28/16 06:47 Nucleated RBC % Not Reportable 10/28/16 06:47 Seg Neutrophils # 6.1 K/mm3 (1.8-7.7) 10/31/16 09:11 Seg Neutrophils # Man 29.0 K/mm3 (1.8-7.7) H 10/28/16 06:47 Band Neutrophils # 0.2 K/mm3 10/28/16 06:47 Lymphocytes # (Manual) 1.5 K/mm3 (1.2-5.4) 10/28/16 06:47 Abs React Lymphs (Man) 0.0 K/mm3 10/28/16 06:47 Monocytes # (Manual) 1.8 K/mm3 (0.0-0.8) H 10/28/16 06:47 Eosinophils # (Manual) 0.0 K/mm3 (0.0-0.4) 10/28/16 06:47 Basophils # (Manual) 0.2 K/mm3 (0.0-0.1) H 10/28/16 06:47 Metamyelocytes # 0.0 K/mm3 10/28/16 06:47 Myelocytes # 0.0 K/mm3 10/28/16 06:47 Promyelocytes # 0.0 K/mm3 10/28/16 06:47 Blast Cells # 0.0 K/mm3 10/28/16 06:47 WBC Morphology Not Reportable 10/28/16 06:47 Hypersegmented Neuts Not Reportable 10/28/16 06:47 Hyposegmented Neuts Not Reportable 10/28/16 06:47 Hypogranular Neuts Not Reportable 10/28/16 06:47 Smudge Cells Not Reportable 10/28/16 06:47 Toxic Granulation Not Reportable 10/28/16 06:47 Toxic Vacuolation Not Reportable 10/28/16 06:47 Dohle Bodies Not Reportable 10/28/16 06:47 Pelger-Huet Anomaly Not Reportable 10/28/16 06:47 [place] Rods Not Reportable 10/28/16 06:47 Platelet Estimate Consistent w auto 10/28/16 06:47 Clumped Platelets Not Reportable 10/28/16 06:47 Plt Clumps, EDTA Not Reportable 10/28/16 06:47 Large Platelets Not Reportable 10/28/16 06:47 Giant Platelets Not Reportable 10/28/16 06:47 Platelet Satelliting Not Reportable 10/28/16 06:47 Plt Morphology Comment Not Reportable 10/28/16 06:47 RBC Morphology Not Reportable 10/28/16 06:47 Dimorphic RBCs Not Reportable 10/28/16 06:47 Polychromasia Not Reportable 10/28/16 06:47 Hypochromasia Not Reportable 10/28/16 06:47 Poikilocytosis Not Reportable 10/28/16 06:47 Anisocytosis 1+ 10/28/16 06:47 Microcytosis Not Reportable 10/28/16 06:47 Macrocytosis Not Reportable 10/28/16 06:47 Spherocytes Not Reportable 10/28/16 06:47 Pappenheimer Bodies Not Reportable 10/28/16 06:47 Sickle Cells Not Reportable 10/28/16 06:47 Target Cells Not Reportable 10/28/16 06:47 Tear Drop Cells Not Reportable 10/28/16 06:47 Ovalocytes Not Reportable 10/28/16 06:47 Helmet Cells Not Reportable 10/28/16 06:47 Hackett-Massillon Bodies Not Reportable 10/28/16 06:47 [place] Rings Not Reportable 10/28/16 06:47 [place] Cells Not Reportable 10/28/16 06:47 Bite Cells Not Reportable 10/28/16 06:47 Crenated Cell Not Reportable 10/28/16 06:47 Elliptocytes Not Reportable 10/28/16 06:47 Acanthocytes (Spur) Not Reportable 10/28/16 06:47 Rouleaux Not Reportable 10/28/16 06:47 Hemoglobin C Crystals Not Reportable 10/28/16 06:47 Schistocytes Not Reportable 10/28/16 06:47 Malaria parasites Not Reportable 10/28/16 06:47 ESR 60 mm/Hr (0-20) 10/27/16 20:05 [place] Bodies Not Reportable 10/28/16 06:47 Hem Pathologist Commnt No 10/28/16 06:47 POC ABG pH 7.413 (7.35-7.45) 10/27/16 20:42 POC ABG pCO2 39.4 (35-45) 10/27/16 20:42 POC ABG pO2 83 (80-105) 10/27/16 20:42 POC ABG HCO3 25.2 10/27/16 20:42 POC ABG Total CO2 26 10/27/16 20:42 POC ABG O2 Sat 96 10/27/16 20:42 POC ABG Base Excess 1 10/27/16 20:42 FiO2 24 % 10/27/16 20:42 Sodium 136 mmol/L (137-145) L 10/31/16 09:11 Potassium 4.0 mmol/L (3.6-5.0) 10/31/16 09:11 Chloride 97.0 mmol/L (98-107) L 10/31/16 09:11 Carbon Dioxide 22 mmol/L (22-30) 10/31/16 09:11 Anion Gap 21 mmol/L 10/31/16 09:11 BUN 25 mg/dL (7-17) H 10/31/16 09:11 Creatinine 4.7 mg/dL (0.7-1.2) H 10/31/16 09:11 Estimated GFR 11 ml/min 10/31/16 09:11 BUN/Creatinine Ratio 5.31 % 10/31/16 09:11 Glucose 115 mg/dL (65-100) H 10/31/16 09:11 Lactic Acid 1.6 mmol/L (0.7-2.0) 10/27/16 20:05 Calcium 8.3 mg/dL (8.4-10.2) L 10/31/16 09:11 Phosphorus 2.5 mg/dL (2.5-4.5) 10/27/16 20:05 Magnesium 2.0 mg/dL (1.7-2.3) 10/27/16 20:05 Total Creatine Kinase 74 units/L (30-135) 10/28/16 13:26 CK-MB (CK-2) 2.0 ng/mL (0.0-4.0) 10/28/16 13:26 CK-MB (CK-2) Rel Index 2.7 (0-4) 10/28/16 13:26 Troponin T 0.040 ng/mL (0.00-0.029) H D 10/28/16 13:26 C-Reactive Protein 33.20 mg/dL (0.00-1.30) H 10/27/16 20:05 NT-Pro-B Natriuret Pep 49957 pg/mL (0-900) H 10/27/16 20:05 Triglycerides 179 mg/dL (2-149) H 10/27/16 20:05 Cholesterol 141 mg/dL (50-199) 10/27/16 20:05 LDL Cholesterol Direct 63 mg/dL (50-130) 10/27/16 20:05 HDL Cholesterol 43 mg/dL (40-59) 10/27/16 20:05 Cholesterol/HDL Ratio 3.27 % 10/27/16 20:05 Urine Color Yellow (Yellow) 10/29/16 Unknown Urine Turbidity Slightly-cloudy (Clear) 10/29/16 Unknown Urine pH 5.0 (5.0-7.0) 10/29/16 Unknown Ur Specific [place] 1.017 (1.003-1.030) 10/29/16 Unknown Urine Protein 100 mg/dl mg/dL (Negative) 10/29/16 Unknown Urine Glucose (UA) Neg mg/dL (Negative) 10/29/16 Unknown Urine Ketones Tr mg/dL (Negative) 10/29/16 Unknown Urine Blood Mod (Negative) 10/29/16 Unknown Urine Nitrite Neg (Negative) 10/29/16 Unknown Urine Bilirubin Neg (Negative) 10/29/16 Unknown Urine Urobilinogen < 2.0 mg/dL (<2.0) 10/29/16 Unknown Ur Leukocyte Esterase Lg (Negative) 10/29/16 Unknown Urine WBC (Auto) 38.0 /HPF (0.0-6.0) H 10/29/16 Unknown Urine RBC (Auto) 9.0 /HPF (0.0-6.0) 10/29/16 Unknown U Epithel Cells (Auto) 6.0 /HPF (0-13.0) 10/29/16 Unknown Urine Bacteria (Auto) 1+ /HPF (Negative) 10/29/16 Unknown Ur Transition Epith Cell 1 /HPF 10/29/16 Unknown Urine Mucus Few /HPF 10/29/16 Unknown Random Vancomycin 21.8 ug/mL (0-40.0) 11/01/16 08:30
[2016-11-01] MEDS ORDERED: VANCOMYCIN VIAL 750 MG in NACL 0.9% 250ML 250 ML IV ONE (18:00)
[2016-11-02] MEDS: SINGULAIR PO SCH (09:15)
[2016-11-02] MEDS: LOVENOX SUB-Q SCH (09:15)
[2016-11-02] MEDS: COLACE PO SCH (09:16)
[2016-11-02] MEDS: PERCOCET 5/325 PO PRN ×3 (09:18→21:38)
[2016-11-02] MEDS: APRESOLINE PO SCH ×2 (09:24→21:37)
[2016-11-02] MEDS: NORMODYNE PO SCH ×2 (09:24→21:37)
--- NOTE | 2016-11-02 09:27 | Progress Note ---
Assessment and Plan - Patient Problems (1) ESRD (end stage renal disease) on dialysis Current Visit: Yes Status: Chronic Plan to address problem: Continue hemodialysis three times a week. Patient was last dialyzed yesterday. Able to use the AVG. (2) Bacteremia due to Enterococcus Current Visit: Yes Status: Acute Plan to address problem: Tunnel catheter removal today. (3) Sepsis Current Visit: Yes Status: Acute Qualifiers: Sepsis type: sepsis due to unspecified organism Qualified Code(s): A41.9 - Sepsis, unspecified organism (4) Anemia, chronic renal failure Current Visit: No Status: Chronic (5) Primary hypertension Current Visit: Yes Status: Acute Subjective Date of service: 11/02/16 Principal diagnosis: Enterococcal bacteremia Interval history: Patient is feeling ok. Objective - Vital Signs Vital signs: Vital Signs - 12hr 11/01/16 11/01/16 11/01/16 21:40 21:41 22:00 Temperature Pulse Rate 96 H Pulse Rate [ Right From Monitor] Pulse Rate [ Right] Respiratory 20 20 Rate Blood Pressure 134/60 Blood Pressure [Right Arm] O2 Sat by Pulse Oximetry 11/01/16 11/01/16 11/02/16 22:52 23:45 07:19 Temperature 98.8 F 98.2 F Pulse Rate Pulse Rate [ 83 Right From Monitor] Pulse Rate [ 95 H Right] Respiratory 20 14 Rate Blood Pressure Blood Pressure 121/59 129/58 [Right Arm] O2 Sat by Pulse 97 98 96 Oximetry 11/02/16 09:24 Temperature Pulse Rate 87 Pulse Rate [ Right From Monitor] Pulse Rate [ Right] Respiratory Rate Blood Pressure 121/59 Blood Pressure [Right Arm] O2 Sat by Pulse Oximetry - General Appearance General appearance: well-developed, well-nourished, other (no distress, right IJ tunnel catheter, left arm AVG) EENT: mucous membranes moist, hearing intact, vision intact Neck: supple Respiratory: Present: Clear to Ascultation Cardiology: regular, S1S2, no murmurs Gastrointestinal: normoactive bowel sounds, no tenderness, no distended Integumentary: no rash, warm and dry Neurologic: no focal deficit, no asterixis, alert and oriented x3, CN 3-12 intact Musculoskeletal: other (no edema) Psychiatric: mood/affect appropriate, cooperative - Lab 10/31/16 09:11 10/31/16 09:11 Most recent lab results Calcium 8.3 mg/dL (8.4-10.2) L 10/31/16 09:11 Phosphorus 2.5 mg/dL (2.5-4.5) 10/27/16 20:05 Magnesium 2.0 mg/dL (1.7-2.3) 10/27/16 20:05
--- NOTE | 2016-11-02 10:29 | Progress Note ---
Assessment and Plan Current antibiotics: Vancomycin (pulse dosing) 10/27 --> Previous antibiotics: Levaquin 500 mg IV q48h 10/27 --> ASSESSMENT: Bebo Freeman is a 81 y/o female with ESRF on maintenance HD, HTN, CHF, COPD and chronic hepatitis C who was admitted to [facility] on 10/29 with increasing left sided musculoskeletal pain, increasing generalized weakness and subjective fevers with some mild chills. Admitting blood cultures are growing Enterococcus. Problem list: 1. Enterococcal bacteremia -2/2 bottles from 10/27 and 2/4 bottles (1 set so far) from 10/29 are positive as well -Most likely source is the PermCath although apparently it is quite new. -Rule out endocarditis, etc. (TTE negative but technically difficult) -Urinalysis without signficant pyuria or bacteriuria 2. Leukocytosis -Likely secondary to #1 3. ESRD -Chronic HD -Right IJ PC placed 08/24/16 4. Hypertension 5. COPD 6. Musculoskeletal chest pain -Rule out embolic process although doubt -Rule rib fx after fall PLAN: 1. Await repeat blood cultures from 11/01 2. PC will be discontinued bivascular today with tip cultured 3. If she remains bacteremic will need to consider JEAN-CLAUDE 4. Supportive measures as are being done. 5. Will continue vancomycin as she is penicillin allergic 6. Will obtain left rib films Pacheco Alford MD [facility] Office: [phone] Subjective Date of service: 11/02/16 Principal diagnosis: Enterococcal bacteremia Interval history: No new complaints. Still with left lateral chest pain that is musculoskeletal in quality but believes it is from a fall prior to admission. ROS: No subjective fever or chills. No nausea, vomiting or diarrhea. No shortness of breath, cough or pleuritic chest pain Objective - Exam Narrative Exam: GENERAL: Well-developed, well-nourished appearing female who is alert and in no acute distress. HEAD: Normocephalic. No lesions seen. EYES: Pupils are equal reactive to light and accommodation. There is no scleral icterus. Optic fundi are not examined. EARS: Tympanic membranes are normal. THROAT: Oropharynx is normal with no evidence of oral candidiasis or pharyngitis. Poor dentition but no obvious dental infection. NECK: Supple. No enlargement of the thyroid gland. No significant cervical lymphadenopathy. No jugular venous distention at 30. LUNGS: Clear with no adventitious sounds. CHEST: Right IJ PC with no signs of infection at the insertion site. Exquisite tenderness over the left lateral, lower chest with no other objective abnormalities. HEART: Regular rate. S1 and S2 are normal. There are no gallops, clicks or rubs heard. There is a grade II/ SILVER heard best over the LLSB. No diastolic murmur. ABDOMEN: Soft and nontender. Liver and spleen are not palpably enlarged or tender. No palpable masses. Bowel sounds are normoactive. EXTREMITIES: No rash, peripheral lymphadenopathy, clubbing or edema. LUE AVF with palpable thrill and audible bruit and no signs of infection. : Not examined. No Lee. NEUROLOGIC: No focal findings. - Constitutional Vitals: Vital Signs Temp Pulse Resp BP Pulse Ox 98.2 F 80 12 121/59 96 11/02/16 07:19 11/02/16 09:27 11/02/16 09:27 11/02/16 09:24 11/02/16 07:19 Temperature -Last 24 Hours Temperature 98.2 F Temperature 98.8 F Temperature 98.5 F Temperature 97.7 F Temperature 98.1 F - Labs CBC & Chem 7: 10/31/16 09:11 10/31/16 09:11 Labs: Microbiology 10/27/16 20:05 Peripheral/Venous Blood Culture - Final Enterococcus faecalis (penicillin sensitive) in 2/2 bottles 10/29/16 14:00 Peripheral/Venous Blood Culture - Preliminary 2/2 bottles with Enterococcus species 10/29/16 13:54 Peripheral/Venous Blood Culture - Preliminary NGTD 11/01 bloos cultures: pending Imagin/21 transthoracic echocardiogram: Study is technically limited. No definite valvular vegetation seen in no atrial thrombi. 10/27: Thoracic spine MRI: Negative except for hemangiomas at T6, T10 and L1 Lumbar spine MRI: No signs of infection. 10/28: CXR: No acute findings Chest CT: Borderline enlarged mediastinal lymph nodes. Advanced COPD with cystic change and fibrosis at the lung bases. Right basilar lung infiltrate
--- NOTE | 2016-11-02 12:12 | XRay Report ---
LEFT RIBS, 3 VIEWS: History: Left lateral rib pain. In retrospect, a left posterolateral eighth rib fracture is identified on the CT dated 10/28/16. However, I do not confidently see this fracture on x-ray. The remaining ribs are grossly intact. Trace left pleural effusion is noted. IMPRESSION: Left posterior lateral eighth rib fracture, see above.
[2016-11-02] MEDS ORDERED: XYLOCAINE 1% 20 mL ONE (14:13)
--- NOTE | 2016-11-02 15:10 | Progress Note ---
Assessment and Plan Assessment and plan: --Sepsis / enterococcus bacteremia Continue vancomycin, ID following TTE no evidence of vegetations, consider JEAN-CLAUDE if needed --Possible pneumonia, community-acquired, some times significantly improved Continue current antibiotics --Hypertension; Moderate control, continue current antihypertensives and when necessary medications --Back pain/secondary to degenerative spine disease/Probably MRI cervical spine, MRI thoracic spine, MRI lumbosacral spine negative for abscess degenerative disc and spine disease Continue pain medications supportive care, --End-stage renal disease on hemodialysis; Dialysis per scheduled, nephrology following, Vascular to check HD catheter infection --Acute exacerbation of COPD; Oxygen titrated to O2 sats more than 90%, nebulizers as needed, patient is already on antibiotics --Acute on chronic diastolic congestive heart failure ejection fraction 50-55% Continue diuretics hemodialysis and supportive. --DVT prophylaxis with heparin --Status; full code Consults and recommendations noted and appreciated Patient's condition treatment plan discussed in detail with the patient and the nurse, consuls noted History Interval history: Patient seen and evaluated medical records reviewed No new events report by the nursing staff Patient denies any chest pain shortness of breath Alert awake oriented 3 Vital signs reviewed stable Hospitalist Physical - Constitutional Vitals: Temp Pulse Resp BP Pulse Ox 98.1 F 82 16 131/60 99 11/02/16 14:44 11/02/16 14:44 11/02/16 14:44 11/02/16 14:44 11/02/16 14:44 General appearance: Present: no acute distress, well-nourished - EENT Eyes: Present: PERRL, EOM intact - Neck Neck: Present: supple, normal ROM - Respiratory Respiratory effort: normal Respiratory: negative: diminished, rales, rhonchi, wheezing - Cardiovascular Rhythm: regular Heart Sounds: Present: S1 & S2 - Extremities Extremities: no ischemia, pulses intact, pulses symmetrical Peripheral Pulses: within normal limits - Abdominal General gastrointestinal: soft, non-tender, non-distended, normal bowel sounds - Integumentary Integumentary: Present: clear, warm - Psychiatric Psychiatric: appropriate mood/affect, cooperative - Neurologic Neurologic: CNII-XII intact, moves all extremities Results - Labs CBC & Chem 7: 10/31/16 09:11 10/31/16 09:11 Labs: Laboratory Last Values WBC 8.7 K/mm3 (4.5-11.0) 10/31/16 09:11 RBC 4.49 M/mm3 (3.65-5.03) 10/31/16 09:11 Hgb 13.0 gm/dl (10.1-14.3) 10/31/16 09:11 Hct 40.7 % (30.3-42.9) 10/31/16 09:11 MCV 91 fl (79-97) 10/31/16 09:11 MCH 29 pg (28-32) 10/31/16 09:11 MCHC 32 % (30-34) 10/31/16 09:11 RDW 15.6 % (13.2-15.2) H 10/31/16 09:11 Plt Count 193 K/mm3 (140-440) 10/31/16 09:11 Lymph % (Auto) 14.7 % (13.4-35.0) 10/31/16 09:11 [place] % (Auto) 12.9 % (0.0-7.3) H 10/31/16 09:11 Eos % (Auto) 2.0 % (0.0-4.3) 10/31/16 09:11 Baso % (Auto) 0.8 % (0.0-1.8) 10/31/16 09:11 Lymph # 1.3 K/mm3 (1.2-5.4) 10/31/16 09:11 [place] # 1.1 K/mm3 (0.0-0.8) H 10/31/16 09:11 Eos # 0.2 K/mm3 (0.0-0.4) 10/31/16 09:11 Baso # 0.1 K/mm3 (0.0-0.1) 10/31/16 09:11 Add Manual Diff Complete 10/28/16 06:47 Total Counted 200 10/28/16 06:47 Seg Neutrophils % 69.6 % (40.0-70.0) 10/31/16 09:11 Seg Neuts % (Manual) 89.0 % (40.0-70.0) H 10/28/16 06:47 Band Neutrophils % 0.5 % 10/28/16 06:47 Lymphocytes % (Manual) 4.5 % (13.4-35.0) L 10/28/16 06:47 Reactive Lymphs % (Man) 0 % 10/28/16 06:47 Monocytes % (Manual) 5.5 % (0.0-7.3) 10/28/16 06:47 Eosinophils % (Manual) 0 % (0.0-4.3) 10/28/16 06:47 Basophils % (Manual) 0.5 % (0.0-1.8) 10/28/16 06:47 Metamyelocytes % 0 % 10/28/16 06:47 Myelocytes % 0 % 10/28/16 06:47 Promyelocytes % 0 % 10/28/16 06:47 Blast Cells % 0 % 10/28/16 06:47 Nucleated RBC % Not Reportable 10/28/16 06:47 Seg Neutrophils # 6.1 K/mm3 (1.8-7.7) 10/31/16 09:11 Seg Neutrophils # Man 29.0 K/mm3 (1.8-7.7) H 10/28/16 06:47 Band Neutrophils # 0.2 K/mm3 10/28/16 06:47 Lymphocytes # (Manual) 1.5 K/mm3 (1.2-5.4) 10/28/16 06:47 Abs React Lymphs (Man) 0.0 K/mm3 10/28/16 06:47 Monocytes # (Manual) 1.8 K/mm3 (0.0-0.8) H 10/28/16 06:47 Eosinophils # (Manual) 0.0 K/mm3 (0.0-0.4) 10/28/16 06:47 Basophils # (Manual) 0.2 K/mm3 (0.0-0.1) H 10/28/16 06:47 Metamyelocytes # 0.0 K/mm3 10/28/16 06:47 Myelocytes # 0.0 K/mm3 10/28/16 06:47 Promyelocytes # 0.0 K/mm3 10/28/16 06:47 Blast Cells # 0.0 K/mm3 10/28/16 06:47 WBC Morphology Not Reportable 10/28/16 06:47 Hypersegmented Neuts Not Reportable 10/28/16 06:47 Hyposegmented Neuts Not Reportable 10/28/16 06:47 Hypogranular Neuts Not Reportable 10/28/16 06:47 Smudge Cells Not Reportable 10/28/16 06:47 Toxic Granulation Not Reportable 10/28/16 06:47 Toxic Vacuolation Not Reportable 10/28/16 06:47 Dohle Bodies Not Reportable 10/28/16 06:47 Pelger-Huet Anomaly Not Reportable 10/28/16 06:47 [place] Rods Not Reportable 10/28/16 06:47 Platelet Estimate Consistent w auto 10/28/16 06:47 Clumped Platelets Not Reportable 10/28/16 06:47 Plt Clumps, EDTA Not Reportable 10/28/16 06:47 Large Platelets Not Reportable 10/28/16 06:47 Giant Platelets Not Reportable 10/28/16 06:47 Platelet Satelliting Not Reportable 10/28/16 06:47 Plt Morphology Comment Not Reportable 10/28/16 06:47 RBC Morphology Not Reportable 10/28/16 06:47 Dimorphic RBCs Not Reportable 10/28/16 06:47 Polychromasia Not Reportable 10/28/16 06:47 Hypochromasia Not Reportable 10/28/16 06:47 Poikilocytosis Not Reportable 10/28/16 06:47 Anisocytosis 1+ 10/28/16 06:47 Microcytosis Not Reportable 10/28/16 06:47 Macrocytosis Not Reportable 10/28/16 06:47 Spherocytes Not Reportable 10/28/16 06:47 Pappenheimer Bodies Not Reportable 10/28/16 06:47 Sickle Cells Not Reportable 10/28/16 06:47 Target Cells Not Reportable 10/28/16 06:47 Tear Drop Cells Not Reportable 10/28/16 06:47 Ovalocytes Not Reportable 10/28/16 06:47 Helmet Cells Not Reportable 10/28/16 06:47 [place] Bodies Not Reportable 10/28/16 06:47 [place] Rings Not Reportable 10/28/16 06:47 [place] Cells Not Reportable 10/28/16 06:47 Bite Cells Not Reportable 10/28/16 06:47 Crenated Cell Not Reportable 10/28/16 06:47 Elliptocytes Not Reportable 10/28/16 06:47 Acanthocytes (Spur) Not Reportable 10/28/16 06:47 Rouleaux Not Reportable 10/28/16 06:47 Hemoglobin C Crystals Not Reportable 10/28/16 06:47 Schistocytes Not Reportable 10/28/16 06:47 Malaria parasites Not Reportable 10/28/16 06:47 ESR 60 mm/Hr (0-20) 10/27/16 20:05 [place] Bodies Not Reportable 10/28/16 06:47 Hem Pathologist Commnt No 10/28/16 06:47 POC ABG pH 7.413 (7.35-7.45) 10/27/16 20:42 POC ABG pCO2 39.4 (35-45) 10/27/16 20:42 POC ABG pO2 83 (80-105) 10/27/16 20:42 POC ABG HCO3 25.2 10/27/16 20:42 POC ABG Total CO2 26 10/27/16 20:42 POC ABG O2 Sat 96 10/27/16 20:42 POC ABG Base Excess 1 10/27/16 20:42 FiO2 24 % 10/27/16 20:42 Sodium 136 mmol/L (137-145) L 10/31/16 09:11 Potassium 4.0 mmol/L (3.6-5.0) 10/31/16 09:11 Chloride 97.0 mmol/L (98-107) L 10/31/16 09:11 Carbon Dioxide 22 mmol/L (22-30) 10/31/16 09:11 Anion Gap 21 mmol/L 10/31/16 09:11 BUN 25 mg/dL (7-17) H 10/31/16 09:11 Creatinine 4.7 mg/dL (0.7-1.2) H 10/31/16 09:11 Estimated GFR 11 ml/min 10/31/16 09:11 BUN/Creatinine Ratio 5.31 % 10/31/16 09:11 Glucose 115 mg/dL (65-100) H 10/31/16 09:11 Lactic Acid 1.6 mmol/L (0.7-2.0) 10/27/16 20:05 Calcium 8.3 mg/dL (8.4-10.2) L 10/31/16 09:11 Phosphorus 2.5 mg/dL (2.5-4.5) 10/27/16 20:05 Magnesium 2.0 mg/dL (1.7-2.3) 10/27/16 20:05 Total Creatine Kinase 74 units/L (30-135) 10/28/16 13:26 CK-MB (CK-2) 2.0 ng/mL (0.0-4.0) 10/28/16 13:26 CK-MB (CK-2) Rel Index 2.7 (0-4) 10/28/16 13:26 Troponin T 0.040 ng/mL (0.00-0.029) H D 10/28/16 13:26 C-Reactive Protein 33.20 mg/dL (0.00-1.30) H 10/27/16 20:05 NT-Pro-B Natriuret Pep 94045 pg/mL (0-900) H 10/27/16 20:05 Triglycerides 179 mg/dL (2-149) H 10/27/16 20:05 Cholesterol 141 mg/dL (50-199) 10/27/16 20:05 LDL Cholesterol Direct 63 mg/dL (50-130) 10/27/16 20:05 HDL Cholesterol 43 mg/dL (40-59) 10/27/16 20:05 Cholesterol/HDL Ratio 3.27 % 10/27/16 20:05 Urine Color Yellow (Yellow) 10/29/16 Unknown Urine Turbidity Slightly-cloudy (Clear) 10/29/16 Unknown Urine pH 5.0 (5.0-7.0) 10/29/16 Unknown Ur Specific [place] 1.017 (1.003-1.030) 10/29/16 Unknown Urine Protein 100 mg/dl mg/dL (Negative) 10/29/16 Unknown Urine Glucose (UA) Neg mg/dL (Negative) 10/29/16 Unknown Urine Ketones Tr mg/dL (Negative) 10/29/16 Unknown Urine Blood Mod (Negative) 10/29/16 Unknown Urine Nitrite Neg (Negative) 10/29/16 Unknown Urine Bilirubin Neg (Negative) 10/29/16 Unknown Urine Urobilinogen < 2.0 mg/dL (<2.0) 10/29/16 Unknown Ur Leukocyte Esterase Lg (Negative) 10/29/16 Unknown Urine WBC (Auto) 38.0 /HPF (0.0-6.0) H 10/29/16 Unknown Urine RBC (Auto) 9.0 /HPF (0.0-6.0) 10/29/16 Unknown U Epithel Cells (Auto) 6.0 /HPF (0-13.0) 10/29/16 Unknown Urine Bacteria (Auto) 1+ /HPF (Negative) 10/29/16 Unknown Ur Transition Epith Cell 1 /HPF 10/29/16 Unknown Urine Mucus Few /HPF 10/29/16 Unknown Random Vancomycin 25.1 ug/mL (0-40.0) 11/02/16 05:42
--- NOTE | 2016-11-02 16:22 | Operative Report ---
Operative Report Operative Report: EXAM: Tunneled catheter removal DATE: 11/02/16 INDICATION: PermCath infection requiring removal. MEDICATIONS: Please see nursing report for full details. CURRICULUM DEVELOPER: JAIME MAGAÑA MD CONTRAST: None PROCEDURE: The risks, benefits, and alternatives were discussed; written informed consent was obtained. The patient was positioned with the head towards the contralateral side. The tunneled catheter was prepped and draped in a sterile fashion. Lidocaine was infiltrated at the dermatotomy site. Heparin was withdrawn from both lumens. Using a hemostat, blunt dissection was performed and the cuff was extracted. The catheter was extracted and pressure was held at the venotomy and dermatotomy site until hemostasis was achieved. Sterile bandage was then applied. The patient tolerated the procedure without issue. FINDINGS: Successful removal of the tunneled catheter. Tip cut off and sent for culture. IMPRESSION: Successful removal of the right tunneled catheter.
[2016-11-03] MEDS: COLACE PO SCH ×4 (00:11→22:11)
--- NOTE | 2016-11-03 07:35 | Progress Note ---
Assessment and Plan - Patient Problems (1) ESRD (end stage renal disease) on dialysis Current Visit: Yes Status: Chronic Plan to address problem: Scheduled to get hemodialysis today. (2) Bacteremia due to Enterococcus Current Visit: Yes Status: Acute Plan to address problem: On Vancomycin. Monitor blood culture. Followed by ID. S/p removal of tunnel hemodialysis catheter. (3) Sepsis Current Visit: Yes Status: Acute Qualifiers: Sepsis type: sepsis due to unspecified organism Qualified Code(s): A41.9 - Sepsis, unspecified organism Plan to address problem: Improving. (4) Anemia, chronic renal failure Current Visit: No Status: Chronic Plan to address problem: Epogen prn. (5) Primary hypertension Current Visit: Yes Status: Acute Plan to address problem: BP controlled. Subjective Date of service: 11/03/16 Principal diagnosis: Enterococcal bacteremia Interval history: Patient feeling better. Objective - Vital Signs Vital signs: Vital Signs - 12hr 11/02/16 11/02/16 11/02/16 21:22 21:37 21:38 Temperature Pulse Rate 82 Pulse Rate [ Right From Monitor] Respiratory 20 Rate Respiratory Rate [Left Flank] Blood Pressure 133/62 Blood Pressure [Right Arm] O2 Sat by Pulse 96 Oximetry 11/02/16 11/02/16 22:00 23:40 Temperature 98.3 F Pulse Rate Pulse Rate [ 77 84 Right From Monitor] Respiratory 16 16 Rate Respiratory 18 Rate [Left Flank] Blood Pressure Blood Pressure 122/54 [Right Arm] O2 Sat by Pulse 99 Oximetry - General Appearance General appearance: well-developed, well-nourished, other (no distress, left arm AVG) EENT: PERRL, hearing intact, vision intact Neck: supple Respiratory: Present: Clear to Ascultation Cardiology: regular, S1S2, no murmurs Gastrointestinal: normoactive bowel sounds, no tenderness, no distended Integumentary: no rash, warm and dry Neurologic: no focal deficit, no asterixis, alert and oriented x3, CN 3-12 intact Musculoskeletal: other (no edema) Psychiatric: mood/affect appropriate, cooperative - Lab 10/31/16 09:11 10/31/16 09:11 Most recent lab results Calcium 8.3 mg/dL (8.4-10.2) L 10/31/16 09:11 Phosphorus 2.5 mg/dL (2.5-4.5) 10/27/16 20:05 Magnesium 2.0 mg/dL (1.7-2.3) 10/27/16 20:05
[2016-11-03] MEDS ORDERED: NACL 0.9% 1000 ML 100 ML IV PRN (10:00)
[2016-11-03] MEDS ORDERED: HEPARIN 10,000 UNITS/10 ML IV PRN (10:00)
[2016-11-03] MEDS: LOVENOX SUB-Q SCH (10:09)
[2016-11-03] MEDS: PERCOCET 5/325 PO PRN ×2 (10:09→17:29)
[2016-11-03] MEDS: NORMODYNE PO SCH ×2 (10:10→22:08)
[2016-11-03] MEDS: SINGULAIR PO SCH (10:10)
[2016-11-03] MEDS: APRESOLINE PO SCH ×2 (10:11→22:07)
--- NOTE | 2016-11-03 11:53 | Progress Note ---
Assessment and Plan Current antibiotics: Vancomycin (pulse dosing) 10/27 --> Previous antibiotics: Levaquin 500 mg IV q48h 10/27 --> ASSESSMENT: Bebo Freeman is a 81 y/o female with ESRF on maintenance HD, HTN, CHF, COPD and chronic hepatitis C who was admitted to [facility] on 10/29 with increasing left sided musculoskeletal pain, increasing generalized weakness and subjective fevers with some mild chills. Admitting blood cultures are growing Enterococcus. Problem list: 1. Enterococcal bacteremia -2/2 bottles from 10/27 and 2/4 bottles (1 set so far) from 10/29 are positive as well -PC tip 11/02 - >15col. [employer] -Rule out endocarditis, etc. (TTE negative but technically difficult) -Urinalysis without signficant pyuria or bacteriuria 2. Leukocytosis -Likely secondary to #1 3. ESRD -Chronic HD -Right IJ PC placed 08/24/16 4. Hypertension 5. COPD 6. Musculoskeletal chest pain -Rule out embolic process although doubt -Rule rib fx after fall -Re-review of CT scan shows left 8th rib fracture ( plain x-ray 11/02 is Negative ) PLAN: 1. Await repeat blood cultures from 11/01 - NGTD 2. If she remains bacteremic will need to consider JEAN-CLAUDE 3. Supportive measures as are being done. 4. Will continue vancomycin as she is penicillin allergic Subjective Date of service: 11/03/16 Principal diagnosis: Enterococcal bacteremia Interval history: Patient complaining of left side pain. Objective - Exam Narrative Exam: HEENT: Pupils are equal reactive to light and accommodation. Conjunctiva clear. Oropharynx is normal with no evidence of oral candidiasis or pharyngitis. NECK: Supple. No enlargement of the thyroid gland. No significant cervical lymphadenopathy. No jugular venous distention at 30. LUNGS: Clear with no adventitious sounds. HEART: Regular rate. S1 and S2 are normal. There are no murmurs, gallops, clicks or rubs heard. ABDOMEN: Soft and nontender. Liver and spleen are not palpably enlarged or tender. No palpable masses. Bowel sounds are normoactive. Left CVA point tenderness. EXTREMITIES: No rash, peripheral lymphadenopathy, clubbing or edema. SKIN: No other rash, ulcers or wounds. Previous right chest wall catheter site without swelling, redness, or tenderness. NEUROLOGIC: No focal findings. - Constitutional Vitals: Vital Signs Temp Pulse Resp BP Pulse Ox 98.7 F 90 18 137/65 96 11/03/16 08:15 11/03/16 10:11 11/03/16 08:15 11/03/16 10:11 11/03/16 09:55 Temperature -Last 24 Hours Temperature 98.7 F Temperature 98.3 F Temperature 98.1 F - Labs CBC & Chem 7: 10/31/16 09:11 10/31/16 09:11
--- NOTE | 2016-11-03 13:28 | Vascular Lab Report ---
FISTULA DUPLEX EXAM: REASON FOR EXAM: AVF malfunction with ESRD. NOTE: THE FISTULA IS LOCATED IN THE LEFT UPPER EXTREMITY. COMMENTS ON THE FISTULA: This is a brachial artery inflow to axillary vein outlflow graft. Morphologicaly, there is no large pseudoaneurysms. There is no velocity gradient to suggest focal stenosis. COMMENTS ON THE INFLOW: The inflow velocity is 243 cm/s which is adequate. The brachial artery is 112 cm/s which is adequate. COMMENTS ON THE OUTFLOW: The venous outflow is 330 cm/s which is adequate. The volume is 752-920 mL per minute mL/min which is adequate. IMPRESSION: No evidence of focal stenosis. The volume passing through the fistula is adequate.
[2016-11-03] MEDS: PROCRIT SUB-Q PRN (14:22)
--- NOTE | 2016-11-03 18:26 | Progress Note ---
Assessment and Plan Assessment and plan: --Catheter tip cultures positive for coag-negative staph aureus Management per ID --Sepsis / enterococcus bacteremia Day 8 of Vanco and Levaquin, ID following TTE no evidence of vegetations, consider JEAN-CLAUDE if needed --Possible pneumonia, community-acquired, some times significantly improved Continue current antibiotics --Hypertension; Moderate control, continue current antihypertensives and when necessary medications --Back pain/secondary to degenerative spine disease/Probably MRI cervical spine, MRI thoracic spine, MRI lumbosacral spine negative for abscess degenerative disc and spine disease Continue pain medications supportive care, --End-stage renal disease on hemodialysis; Dialysis per scheduled, nephrology following, Vascular to check HD catheter infection --Acute exacerbation of COPD; Oxygen titrated to O2 sats more than 90%, nebulizers as needed, patient is already on antibiotics --Acute on chronic diastolic congestive heart failure ejection fraction 50-55% Continue diuretics hemodialysis and supportive. --DVT prophylaxis with heparin --Status; full code Consults and recommendations noted and appreciated Patient's condition treatment plan discussed in detail with the patient and the nurse, consuls noted History Interval history: Patient seen and evaluated medical records reviewed Getting physical therapy tolerating well, No new complaints Alert awake oriented 3 not in acute distress, who signs reviewed Catheter tip cultures positive for coag-negative staph Hospitalist Physical - Constitutional Vitals: Temp Pulse Resp BP Pulse Ox 98.4 F 76 14 125/58 98 11/03/16 16:25 11/03/16 16:56 11/03/16 16:56 11/03/16 16:25 11/03/16 16:25 General appearance: Present: no acute distress, well-nourished - EENT Eyes: Present: PERRL, EOM intact - Neck Neck: Present: supple, normal ROM - Respiratory Respiratory effort: normal Respiratory: negative: rales, rhonchi, wheezing - Cardiovascular Rhythm: regular Heart Sounds: Present: S1 & S2 - Extremities Extremities: no ischemia, pulses intact, pulses symmetrical Peripheral Pulses: within normal limits - Abdominal General gastrointestinal: soft, non-tender, non-distended, normal bowel sounds - Integumentary Integumentary: Present: clear, warm - Psychiatric Psychiatric: appropriate mood/affect, cooperative - Neurologic Neurologic: CNII-XII intact, moves all extremities Results - Labs CBC & Chem 7: 10/31/16 09:11 10/31/16 09:11 Labs: Laboratory Last Values WBC 8.7 K/mm3 (4.5-11.0) 10/31/16 09:11 RBC 4.49 M/mm3 (3.65-5.03) 10/31/16 09:11 Hgb 13.0 gm/dl (10.1-14.3) 10/31/16 09:11 Hct 40.7 % (30.3-42.9) 10/31/16 09:11 MCV 91 fl (79-97) 10/31/16 09:11 MCH 29 pg (28-32) 10/31/16 09:11 MCHC 32 % (30-34) 10/31/16 09:11 RDW 15.6 % (13.2-15.2) H 10/31/16 09:11 Plt Count 193 K/mm3 (140-440) 10/31/16 09:11 Lymph % (Auto) 14.7 % (13.4-35.0) 10/31/16 09:11 [place] % (Auto) 12.9 % (0.0-7.3) H 10/31/16 09:11 Eos % (Auto) 2.0 % (0.0-4.3) 10/31/16 09:11 Baso % (Auto) 0.8 % (0.0-1.8) 10/31/16 09:11 Lymph # 1.3 K/mm3 (1.2-5.4) 10/31/16 09:11 [place] # 1.1 K/mm3 (0.0-0.8) H 10/31/16 09:11 Eos # 0.2 K/mm3 (0.0-0.4) 10/31/16 09:11 Baso # 0.1 K/mm3 (0.0-0.1) 10/31/16 09:11 Add Manual Diff Complete 10/28/16 06:47 Total Counted 200 10/28/16 06:47 Seg Neutrophils % 69.6 % (40.0-70.0) 10/31/16 09:11 Seg Neuts % (Manual) 89.0 % (40.0-70.0) H 10/28/16 06:47 Band Neutrophils % 0.5 % 10/28/16 06:47 Lymphocytes % (Manual) 4.5 % (13.4-35.0) L 10/28/16 06:47 Reactive Lymphs % (Man) 0 % 10/28/16 06:47 Monocytes % (Manual) 5.5 % (0.0-7.3) 10/28/16 06:47 Eosinophils % (Manual) 0 % (0.0-4.3) 10/28/16 06:47 Basophils % (Manual) 0.5 % (0.0-1.8) 10/28/16 06:47 Metamyelocytes % 0 % 10/28/16 06:47 Myelocytes % 0 % 10/28/16 06:47 Promyelocytes % 0 % 10/28/16 06:47 Blast Cells % 0 % 10/28/16 06:47 Nucleated RBC % Not Reportable 10/28/16 06:47 Seg Neutrophils # 6.1 K/mm3 (1.8-7.7) 10/31/16 09:11 Seg Neutrophils # Man 29.0 K/mm3 (1.8-7.7) H 10/28/16 06:47 Band Neutrophils # 0.2 K/mm3 10/28/16 06:47 Lymphocytes # (Manual) 1.5 K/mm3 (1.2-5.4) 10/28/16 06:47 Abs React Lymphs (Man) 0.0 K/mm3 10/28/16 06:47 Monocytes # (Manual) 1.8 K/mm3 (0.0-0.8) H 10/28/16 06:47 Eosinophils # (Manual) 0.0 K/mm3 (0.0-0.4) 10/28/16 06:47 Basophils # (Manual) 0.2 K/mm3 (0.0-0.1) H 10/28/16 06:47 Metamyelocytes # 0.0 K/mm3 10/28/16 06:47 Myelocytes # 0.0 K/mm3 10/28/16 06:47 Promyelocytes # 0.0 K/mm3 10/28/16 06:47 Blast Cells # 0.0 K/mm3 10/28/16 06:47 WBC Morphology Not Reportable 10/28/16 06:47 Hypersegmented Neuts Not Reportable 10/28/16 06:47 Hyposegmented Neuts Not Reportable 10/28/16 06:47 Hypogranular Neuts Not Reportable 10/28/16 06:47 Smudge Cells Not Reportable 10/28/16 06:47 Toxic Granulation Not Reportable 10/28/16 06:47 Toxic Vacuolation Not Reportable 10/28/16 06:47 Dohle Bodies Not Reportable 10/28/16 06:47 Pelger-Huet Anomaly Not Reportable 10/28/16 06:47 [place] Rods Not Reportable 10/28/16 06:47 Platelet Estimate Consistent w auto 10/28/16 06:47 Clumped Platelets Not Reportable 10/28/16 06:47 Plt Clumps, EDTA Not Reportable 10/28/16 06:47 Large Platelets Not Reportable 10/28/16 06:47 Giant Platelets Not Reportable 10/28/16 06:47 Platelet Satelliting Not Reportable 10/28/16 06:47 Plt Morphology Comment Not Reportable 10/28/16 06:47 RBC Morphology Not Reportable 10/28/16 06:47 Dimorphic RBCs Not Reportable 10/28/16 06:47 Polychromasia Not Reportable 10/28/16 06:47 Hypochromasia Not Reportable 10/28/16 06:47 Poikilocytosis Not Reportable 10/28/16 06:47 Anisocytosis 1+ 10/28/16 06:47 Microcytosis Not Reportable 10/28/16 06:47 Macrocytosis Not Reportable 10/28/16 06:47 Spherocytes Not Reportable 10/28/16 06:47 Pappenheimer Bodies Not Reportable 10/28/16 06:47 Sickle Cells Not Reportable 10/28/16 06:47 Target Cells Not Reportable 10/28/16 06:47 Tear Drop Cells Not Reportable 10/28/16 06:47 Ovalocytes Not Reportable 10/28/16 06:47 Helmet Cells Not Reportable 10/28/16 06:47 [place] Bodies Not Reportable 10/28/16 06:47 [place] Rings Not Reportable 10/28/16 06:47 [place] Cells Not Reportable 10/28/16 06:47 Bite Cells Not Reportable 10/28/16 06:47 Crenated Cell Not Reportable 10/28/16 06:47 Elliptocytes Not Reportable 10/28/16 06:47 Acanthocytes (Spur) Not Reportable 10/28/16 06:47 Rouleaux Not Reportable 10/28/16 06:47 Hemoglobin C Crystals Not Reportable 10/28/16 06:47 Schistocytes Not Reportable 10/28/16 06:47 Malaria parasites Not Reportable 10/28/16 06:47 ESR 60 mm/Hr (0-20) 10/27/16 20:05 [place] Bodies Not Reportable 10/28/16 06:47 Hem Pathologist Commnt No 10/28/16 06:47 POC ABG pH 7.413 (7.35-7.45) 10/27/16 20:42 POC ABG pCO2 39.4 (35-45) 10/27/16 20:42 POC ABG pO2 83 (80-105) 10/27/16 20:42 POC ABG HCO3 25.2 10/27/16 20:42 POC ABG Total CO2 26 10/27/16 20:42 POC ABG O2 Sat 96 10/27/16 20:42 POC ABG Base Excess 1 10/27/16 20:42 FiO2 24 % 10/27/16 20:42 Sodium 136 mmol/L (137-145) L 10/31/16 09:11 Potassium 4.0 mmol/L (3.6-5.0) 10/31/16 09:11 Chloride 97.0 mmol/L (98-107) L 10/31/16 09:11 Carbon Dioxide 22 mmol/L (22-30) 10/31/16 09:11 Anion Gap 21 mmol/L 10/31/16 09:11 BUN 25 mg/dL (7-17) H 10/31/16 09:11 Creatinine 4.7 mg/dL (0.7-1.2) H 10/31/16 09:11 Estimated GFR 11 ml/min 10/31/16 09:11 BUN/Creatinine Ratio 5.31 % 10/31/16 09:11 Glucose 115 mg/dL (65-100) H 10/31/16 09:11 Lactic Acid 1.6 mmol/L (0.7-2.0) 10/27/16 20:05 Calcium 8.3 mg/dL (8.4-10.2) L 10/31/16 09:11 Phosphorus 2.5 mg/dL (2.5-4.5) 10/27/16 20:05 Magnesium 2.0 mg/dL (1.7-2.3) 10/27/16 20:05 Total Creatine Kinase 74 units/L (30-135) 10/28/16 13:26 CK-MB (CK-2) 2.0 ng/mL (0.0-4.0) 10/28/16 13:26 CK-MB (CK-2) Rel Index 2.7 (0-4) 10/28/16 13:26 Troponin T 0.040 ng/mL (0.00-0.029) H D 10/28/16 13:26 C-Reactive Protein 33.20 mg/dL (0.00-1.30) H 10/27/16 20:05 NT-Pro-B Natriuret Pep 53011 pg/mL (0-900) H 10/27/16 20:05 Triglycerides 179 mg/dL (2-149) H 10/27/16 20:05 Cholesterol 141 mg/dL (50-199) 10/27/16 20:05 LDL Cholesterol Direct 63 mg/dL (50-130) 10/27/16 20:05 HDL Cholesterol 43 mg/dL (40-59) 10/27/16 20:05 Cholesterol/HDL Ratio 3.27 % 10/27/16 20:05 Urine Color Yellow (Yellow) 10/29/16 Unknown Urine Turbidity Slightly-cloudy (Clear) 10/29/16 Unknown Urine pH 5.0 (5.0-7.0) 10/29/16 Unknown Ur Specific [place] 1.017 (1.003-1.030) 10/29/16 Unknown Urine Protein 100 mg/dl mg/dL (Negative) 10/29/16 Unknown Urine Glucose (UA) Neg mg/dL (Negative) 10/29/16 Unknown Urine Ketones Tr mg/dL (Negative) 10/29/16 Unknown Urine Blood Mod (Negative) 10/29/16 Unknown Urine Nitrite Neg (Negative) 10/29/16 Unknown Urine Bilirubin Neg (Negative) 10/29/16 Unknown Urine Urobilinogen < 2.0 mg/dL (<2.0) 10/29/16 Unknown Ur Leukocyte Esterase Lg (Negative) 10/29/16 Unknown Urine WBC (Auto) 38.0 /HPF (0.0-6.0) H 10/29/16 Unknown Urine RBC (Auto) 9.0 /HPF (0.0-6.0) 10/29/16 Unknown U Epithel Cells (Auto) 6.0 /HPF (0-13.0) 10/29/16 Unknown Urine Bacteria (Auto) 1+ /HPF (Negative) 10/29/16 Unknown Ur Transition Epith Cell 1 /HPF 10/29/16 Unknown Urine Mucus Few /HPF 10/29/16 Unknown Random Vancomycin 25.1 ug/mL (0-40.0) 11/02/16 05:42
[2016-11-04] MEDS: PERCOCET 5/325 PO PRN ×3 (05:21→19:19)
[2016-11-04 07:29] LABS: Eosinophils % (Auto) 1.1 % (0.0-4.3); Hematocrit 36.6 % (30.3-42.9); Hemoglobin 12.1 gm/dl (10.1-14.3); Mean Corpuscular HGB Conc 33 % (30-34); Mean Corpuscular Hemoglobin 29 pg (28-32); Mean Corpuscular Volume 88 fl (79-97); Platelet Count 267 K/mm3 (140-440); Red Blood Count 4.17 M/mm3 (3.65-5.03); Red Cell Distribution Width 15.6 % (13.2-15.2)
[2016-11-04 07:55] LABS: BUN/Creatinine Ratio 4.09; Calcium 8.8 mg/dL (8.4-10.2); Chloride 94.1 mmol/L (98-107); Magnesium 1.9 mg/dL (1.7-2.3)
--- NOTE | 2016-11-04 09:23 | Progress Note ---
Assessment and Plan Assessment and plan: --Sepsis / enterococcus bacteremia Day 9 of Vanco and Levaquin, ID following TTE no evidence of vegetations, consider JEAN-CLAUDE if needed, follow repeat cultures --Catheter tip cultures positive for coag-negative staph aureus Management per ID --Possible pneumonia, community-acquired, some times significantly improved Continue current antibiotics --Hypertension; Moderate control, continue current antihypertensives and when necessary medications --Back pain/secondary to degenerative spine disease/Probably MRI cervical spine, MRI thoracic spine, MRI lumbosacral spine negative for abscess degenerative disc and spine disease Continue pain medications supportive care, --End-stage renal disease on hemodialysis; Dialysis per scheduled, nephrology following, --Acute exacerbation of COPD; Oxygen titrated to O2 sats more than 90%, nebulizers as needed, patient is already on antibiotics --Acute on chronic diastolic congestive heart failure ejection fraction 50-55% Continue diuretics hemodialysis and supportive. --DVT prophylaxis with heparin --Status; full code IDs recommendations noted and appreciated DC planning per case management Patient can be discharged once repeat cultures are negative and cleared by ID. History Interval history: Patient Seen and evaluated medical records reviewed No new events reported by the nursing staff Denies chest pain shortness of breath On dialysis per schedule Enterococcal bacteremia on Vanco and Levaquin Hospitalist Physical - Constitutional Vitals: Temp Pulse Resp BP Pulse Ox 98.6 F 94 H 14 146/67 97 11/04/16 07:30 11/04/16 07:30 11/04/16 07:30 11/04/16 07:30 11/04/16 07:30 General appearance: Present: no acute distress, well-nourished - EENT Eyes: Present: PERRL, EOM intact - Neck Neck: Present: supple, normal ROM - Respiratory Respiratory effort: normal Respiratory: bilateral: diminished, negative: rales, rhonchi, wheezing - Cardiovascular Rhythm: regular Heart Sounds: Present: S1 & S2 - Extremities Extremities: no ischemia, pulses intact, pulses symmetrical Peripheral Pulses: within normal limits - Abdominal General gastrointestinal: soft, non-tender, non-distended, normal bowel sounds - Integumentary Integumentary: Present: clear, warm - Psychiatric Psychiatric: appropriate mood/affect, cooperative - Neurologic Neurologic: CNII-XII intact, moves all extremities Results - Labs CBC & Chem 7: 11/04/16 06:34 11/04/16 06:34 Labs: Laboratory Last Values WBC 10.0 K/mm3 (4.5-11.0) 11/04/16 06:34 RBC 4.17 M/mm3 (3.65-5.03) 11/04/16 06:34 Hgb 12.1 gm/dl (10.1-14.3) 11/04/16 06:34 Hct 36.6 % (30.3-42.9) 11/04/16 06:34 MCV 88 fl (79-97) 11/04/16 06:34 MCH 29 pg (28-32) 11/04/16 06:34 MCHC 33 % (30-34) 11/04/16 06:34 RDW 15.6 % (13.2-15.2) H 11/04/16 06:34 Plt Count 267 K/mm3 (140-440) 11/04/16 06:34 Lymph % (Auto) 11.0 % (13.4-35.0) L 11/04/16 06:34 [place] % (Auto) 11.5 % (0.0-7.3) H 11/04/16 06:34 Eos % (Auto) 1.1 % (0.0-4.3) 11/04/16 06:34 Baso % (Auto) 1.0 % (0.0-1.8) 11/04/16 06:34 Lymph # 1.1 K/mm3 (1.2-5.4) L 11/04/16 06:34 [place] # 1.1 K/mm3 (0.0-0.8) H 11/04/16 06:34 Eos # 0.1 K/mm3 (0.0-0.4) 11/04/16 06:34 Baso # 0.1 K/mm3 (0.0-0.1) 11/04/16 06:34 Add Manual Diff Complete 10/28/16 06:47 Total Counted 200 10/28/16 06:47 Seg Neutrophils % 75.4 % (40.0-70.0) H 11/04/16 06:34 Seg Neuts % (Manual) 89.0 % (40.0-70.0) H 10/28/16 06:47 Band Neutrophils % 0.5 % 10/28/16 06:47 Lymphocytes % (Manual) 4.5 % (13.4-35.0) L 10/28/16 06:47 Reactive Lymphs % (Man) 0 % 10/28/16 06:47 Monocytes % (Manual) 5.5 % (0.0-7.3) 10/28/16 06:47 Eosinophils % (Manual) 0 % (0.0-4.3) 10/28/16 06:47 Basophils % (Manual) 0.5 % (0.0-1.8) 10/28/16 06:47 Metamyelocytes % 0 % 10/28/16 06:47 Myelocytes % 0 % 10/28/16 06:47 Promyelocytes % 0 % 10/28/16 06:47 Blast Cells % 0 % 10/28/16 06:47 Nucleated RBC % Not Reportable 10/28/16 06:47 Seg Neutrophils # 7.5 K/mm3 (1.8-7.7) 11/04/16 06:34 Seg Neutrophils # Man 29.0 K/mm3 (1.8-7.7) H 10/28/16 06:47 Band Neutrophils # 0.2 K/mm3 10/28/16 06:47 Lymphocytes # (Manual) 1.5 K/mm3 (1.2-5.4) 10/28/16 06:47 Abs React Lymphs (Man) 0.0 K/mm3 10/28/16 06:47 Monocytes # (Manual) 1.8 K/mm3 (0.0-0.8) H 10/28/16 06:47 Eosinophils # (Manual) 0.0 K/mm3 (0.0-0.4) 10/28/16 06:47 Basophils # (Manual) 0.2 K/mm3 (0.0-0.1) H 10/28/16 06:47 Metamyelocytes # 0.0 K/mm3 10/28/16 06:47 Myelocytes # 0.0 K/mm3 10/28/16 06:47 Promyelocytes # 0.0 K/mm3 10/28/16 06:47 Blast Cells # 0.0 K/mm3 10/28/16 06:47 WBC Morphology Not Reportable 10/28/16 06:47 Hypersegmented Neuts Not Reportable 10/28/16 06:47 Hyposegmented Neuts Not Reportable 10/28/16 06:47 Hypogranular Neuts Not Reportable 10/28/16 06:47 Smudge Cells Not Reportable 10/28/16 06:47 Toxic Granulation Not Reportable 10/28/16 06:47 Toxic Vacuolation Not Reportable 10/28/16 06:47 Dohle Bodies Not Reportable 10/28/16 06:47 Pelger-Huet Anomaly Not Reportable 10/28/16 06:47 [place] Rods Not Reportable 10/28/16 06:47 Platelet Estimate Consistent w auto 10/28/16 06:47 Clumped Platelets Not Reportable 10/28/16 06:47 Plt Clumps, EDTA Not Reportable 10/28/16 06:47 Large Platelets Not Reportable 10/28/16 06:47 Giant Platelets Not Reportable 10/28/16 06:47 Platelet Satelliting Not Reportable 10/28/16 06:47 Plt Morphology Comment Not Reportable 10/28/16 06:47 RBC Morphology Not Reportable 10/28/16 06:47 Dimorphic RBCs Not Reportable 10/28/16 06:47 Polychromasia Not Reportable 10/28/16 06:47 Hypochromasia Not Reportable 10/28/16 06:47 Poikilocytosis Not Reportable 10/28/16 06:47 Anisocytosis 1+ 10/28/16 06:47 Microcytosis Not Reportable 10/28/16 06:47 Macrocytosis Not Reportable 10/28/16 06:47 Spherocytes Not Reportable 10/28/16 06:47 Pappenheimer Bodies Not Reportable 10/28/16 06:47 Sickle Cells Not Reportable 10/28/16 06:47 Target Cells Not Reportable 10/28/16 06:47 Tear Drop Cells Not Reportable 10/28/16 06:47 Ovalocytes Not Reportable 10/28/16 06:47 Helmet Cells Not Reportable 10/28/16 06:47 [place] Bodies Not Reportable 10/28/16 06:47 [place] Rings Not Reportable 10/28/16 06:47 [place] Cells Not Reportable 10/28/16 06:47 Bite Cells Not Reportable 10/28/16 06:47 Crenated Cell Not Reportable 10/28/16 06:47 Elliptocytes Not Reportable 10/28/16 06:47 Acanthocytes (Spur) Not Reportable 10/28/16 06:47 Rouleaux Not Reportable 10/28/16 06:47 Hemoglobin C Crystals Not Reportable 10/28/16 06:47 Schistocytes Not Reportable 10/28/16 06:47 Malaria parasites Not Reportable 10/28/16 06:47 ESR 60 mm/Hr (0-20) 10/27/16 20:05 [place] Bodies Not Reportable 10/28/16 06:47 Hem Pathologist Commnt No 10/28/16 06:47 POC ABG pH 7.413 (7.35-7.45) 10/27/16 20:42 POC ABG pCO2 39.4 (35-45) 10/27/16 20:42 POC ABG pO2 83 (80-105) 10/27/16 20:42 POC ABG HCO3 25.2 10/27/16 20:42 POC ABG Total CO2 26 10/27/16 20:42 POC ABG O2 Sat 96 10/27/16 20:42 POC ABG Base Excess 1 10/27/16 20:42 FiO2 24 % 10/27/16 20:42 Sodium 134 mmol/L (137-145) L 11/04/16 06:34 Potassium 5.0 mmol/L (3.6-5.0) D 11/04/16 06:34 Chloride 94.1 mmol/L (98-107) L 11/04/16 06:34 Carbon Dioxide 23 mmol/L (22-30) 11/04/16 06:34 Anion Gap 22 mmol/L 11/04/16 06:34 BUN 18 mg/dL (7-17) H 11/04/16 06:34 Creatinine 4.4 mg/dL (0.7-1.2) H 11/04/16 06:34 Estimated GFR 12 ml/min 11/04/16 06:34 BUN/Creatinine Ratio 4.09 % 11/04/16 06:34 Glucose 96 mg/dL (65-100) 11/04/16 06:34 Lactic Acid 1.6 mmol/L (0.7-2.0) 10/27/16 20:05 Calcium 8.8 mg/dL (8.4-10.2) 11/04/16 06:34 Phosphorus 2.5 mg/dL (2.5-4.5) 10/27/16 20:05 Magnesium 1.9 mg/dL (1.7-2.3) 11/04/16 06:34 Total Creatine Kinase 74 units/L (30-135) 10/28/16 13:26 CK-MB (CK-2) 2.0 ng/mL (0.0-4.0) 10/28/16 13:26 CK-MB (CK-2) Rel Index 2.7 (0-4) 10/28/16 13:26 Troponin T 0.040 ng/mL (0.00-0.029) H D 10/28/16 13:26 C-Reactive Protein 33.20 mg/dL (0.00-1.30) H 10/27/16 20:05 NT-Pro-B Natriuret Pep 09578 pg/mL (0-900) H 10/27/16 20:05 Triglycerides 179 mg/dL (2-149) H 10/27/16 20:05 Cholesterol 141 mg/dL (50-199) 10/27/16 20:05 LDL Cholesterol Direct 63 mg/dL (50-130) 10/27/16 20:05 HDL Cholesterol 43 mg/dL (40-59) 10/27/16 20:05 Cholesterol/HDL Ratio 3.27 % 10/27/16 20:05 Urine Color Yellow (Yellow) 10/29/16 Unknown Urine Turbidity Slightly-cloudy (Clear) 10/29/16 Unknown Urine pH 5.0 (5.0-7.0) 10/29/16 Unknown Ur Specific [place] 1.017 (1.003-1.030) 10/29/16 Unknown Urine Protein 100 mg/dl mg/dL (Negative) 10/29/16 Unknown Urine Glucose (UA) Neg mg/dL (Negative) 10/29/16 Unknown Urine Ketones Tr mg/dL (Negative) 10/29/16 Unknown Urine Blood Mod (Negative) 10/29/16 Unknown Urine Nitrite Neg (Negative) 10/29/16 Unknown Urine Bilirubin Neg (Negative) 10/29/16 Unknown Urine Urobilinogen < 2.0 mg/dL (<2.0) 10/29/16 Unknown Ur Leukocyte Esterase Lg (Negative) 10/29/16 Unknown Urine WBC (Auto) 38.0 /HPF (0.0-6.0) H 10/29/16 Unknown Urine RBC (Auto) 9.0 /HPF (0.0-6.0) 10/29/16 Unknown U Epithel Cells (Auto) 6.0 /HPF (0-13.0) 10/29/16 Unknown Urine Bacteria (Auto) 1+ /HPF (Negative) 10/29/16 Unknown Ur Transition Epith Cell 1 /HPF 10/29/16 Unknown Urine Mucus Few /HPF 10/29/16 Unknown Random Vancomycin 25.1 ug/mL (0-40.0) 11/02/16 05:42
[2016-11-04] MEDS: COLACE PO SCH ×2 (10:40→22:25)
[2016-11-04] MEDS: APRESOLINE PO SCH ×2 (10:45→21:08)
[2016-11-04] MEDS: NORMODYNE PO SCH ×2 (10:45→21:08)
[2016-11-04] MEDS: LOVENOX SUB-Q SCH (10:45)
[2016-11-04] MEDS: SINGULAIR PO SCH (10:45)
--- NOTE | 2016-11-04 13:24 | Progress Note ---
Assessment and Plan - Patient Problems (1) ESRD (end stage renal disease) on dialysis Current Visit: Yes Status: Chronic Plan to address problem: Continue hemodialysis three times a week. Patient was last dialyzed yesterday. (2) Bacteremia due to Enterococcus Current Visit: Yes Status: Acute Plan to address problem: On Vancomycin. Monitor blood culture. Followed by ID. S/p removal of tunnel hemodialysis catheter. (3) Sepsis Current Visit: Yes Status: Acute Qualifiers: Sepsis type: sepsis due to unspecified organism Qualified Code(s): A41.9 - Sepsis, unspecified organism Plan to address problem: Improving. (4) Anemia, chronic renal failure Current Visit: No Status: Chronic Plan to address problem: Epogen prn. (5) Primary hypertension Current Visit: Yes Status: Acute Plan to address problem: BP controlled. Subjective Date of service: 11/04/16 Principal diagnosis: Enterococcal bacteremia Interval history: Patient is feeling ok. Objective - Vital Signs Vital signs: Vital Signs - 12hr 11/04/16 11/04/16 11/04/16 05:21 07:30 10:00 Temperature 98.6 F Pulse Rate [ 94 H Right From Monitor] Respiratory 20 14 Rate Blood Pressure Blood Pressure 146/67 [Right Arm] O2 Sat by Pulse 97 96 Oximetry 11/04/16 10:45 Temperature Pulse Rate [ Right From Monitor] Respiratory Rate Blood Pressure 140/78 Blood Pressure [Right Arm] O2 Sat by Pulse Oximetry - General Appearance General appearance: well-developed, well-nourished, other (no distress, left arm AVG) EENT: PERRL, mucous membranes moist, hearing intact, vision intact Neck: no carotid bruit, supple Respiratory: Present: Clear to Ascultation Cardiology: regular, S1S2, no murmurs Gastrointestinal: normoactive bowel sounds, no tenderness, no distended Integumentary: no rash, warm and dry Neurologic: no focal deficit, no asterixis, alert and oriented x3, CN 3-12 intact Musculoskeletal: other (no edema) Psychiatric: mood/affect appropriate, cooperative - Lab 11/04/16 06:34 11/04/16 06:34 Most recent lab results Calcium 8.8 mg/dL (8.4-10.2) 11/04/16 06:34 Phosphorus 2.5 mg/dL (2.5-4.5) 10/27/16 20:05 Magnesium 1.9 mg/dL (1.7-2.3) 11/04/16 06:34
--- NOTE | 2016-11-04 16:40 | Progress Note ---
Assessment and Plan Current antibiotics: Vancomycin (pulse dosing) 10/27 --> Previous antibiotics: Levaquin 500 mg IV q48h 10/27 --> ASSESSMENT: Bebo Freeman is a 81 y/o female with ESRF on maintenance HD, HTN, CHF, COPD and chronic hepatitis C who was admitted to [facility] on 10/29 with increasing left sided musculoskeletal pain, increasing generalized weakness and subjective fevers with some mild chills. Admitting blood cultures are growing Enterococcus. Problem list: 1. Enterococcal bacteremia -2/2 bottles from 10/27 and 2/4 bottles (1 set so far) from 10/29 are positive as well -Most likely source is the PermCath although apparently it is quite new. -Rule out endocarditis, etc. (TTE negative but technically difficult) -Urinalysis without signficant pyuria or bacteriuria 2. Leukocytosis -Likely secondary to #1 -Resolved 3. ESRD -Chronic HD -Right IJ PC placed 08/24/16 -Sttaus post removal 11/02 4. Hypertension 5. COPD 6. Musculoskeletal chest pain -Rule out embolic process although doubt -Rule rib fx after fall PLAN: 1. Await repeat blood cultures from 11/01 which are NGTD 2. If she remains bacteremic will need to consider JEAN-CLAUDE 3. Supportive measures as are being done. 4. Will continue vancomycin as she is penicillin allergic Pacheco Alford MD [facility] Office: [phone] Subjective Date of service: 11/04/16 Principal diagnosis: Enterococcal bacteremia Interval history: No new complaints. Left lateral chest pain some better. ROS: No subjective fever or chills. No nausea, vomiting or diarrhea. No shortness of breath, cough or pleuritic chest pain Objective - Exam Narrative Exam: GENERAL: Well-developed, well-nourished appearing female who is alert and in no acute distress. HEAD: Normocephalic. No lesions seen. EYES: Pupils are equal reactive to light and accommodation. There is no scleral icterus. Optic fundi are not examined. EARS: Tympanic membranes are normal. THROAT: Oropharynx is normal with no evidence of oral candidiasis or pharyngitis. Poor dentition but no obvious dental infection. NECK: Supple. No enlargement of the thyroid gland. No significant cervical lymphadenopathy. No jugular venous distention at 30. LUNGS: Clear with no adventitious sounds. CHEST: Right IJ PC with no signs of infection at the insertion site. Exquisite tenderness over the left lateral, lower chest with no other objective abnormalities. HEART: Regular rate. S1 and S2 are normal. There are no gallops, clicks or rubs heard. There is a grade II/ SILVER heard best over the LLSB. No diastolic murmur. ABDOMEN: Soft and nontender. Liver and spleen are not palpably enlarged or tender. No palpable masses. Bowel sounds are normoactive. EXTREMITIES: No rash, peripheral lymphadenopathy, clubbing or edema. LUE AVF with palpable thrill and audible bruit and no signs of infection. : Not examined. No Lee. NEUROLOGIC: No focal findings. - Constitutional Vitals: Vital Signs Temp Pulse Resp BP Pulse Ox 98.2 F 85 16 116/51 96 11/04/16 15:19 11/04/16 15:19 11/04/16 15:19 11/04/16 15:19 11/04/16 15:19 Temperature -Last 24 Hours Temperature 98.2 F Temperature 98.6 F Temperature 97.8 F - Labs CBC & Chem 7: 11/04/16 06:34 11/04/16 06:34 Labs: Abnormal lab results Microbiology 10/27/16 20:05 Peripheral/Venous Blood Culture - Final Enterococcus faecalis (penicillin sensitive) in 2/2 bottles 10/29/16 14:00 Peripheral/Venous Blood Culture - Preliminary 2/2 bottles with Enterococcus faecalis 10/29/16 13:54 Peripheral/Venous Blood Culture - Preliminary NGTD 11/01 blood cultures: NGTD 11/02 line tip: ORDER ENTRY REPRESENTATIVE Imagin/21 transthoracic echocardiogram: Study is technically limited. No definite valvular vegetation seen in no atrial thrombi. 10/27: Thoracic spine MRI: Negative except for hemangiomas at T6, T10 and L1 Lumbar spine MRI: No signs of infection. 10/28: CXR: No acute findings Chest CT: Borderline enlarged mediastinal lymph nodes. Advanced COPD with cystic change and fibrosis at the lung bases. Right basilar lung infiltrate. Left 8th rib fracture seen in retrospect
[2016-11-05] MEDS: PERCOCET 5/325 PO PRN ×4 (02:07→22:17)
[2016-11-05] MEDS: SINGULAIR PO SCH (09:32)
[2016-11-05] MEDS: APRESOLINE PO SCH ×2 (09:32→22:08)
[2016-11-05] MEDS: COLACE PO SCH ×2 (09:32→22:09)
[2016-11-05] MEDS: LOVENOX SUB-Q SCH (09:32)
[2016-11-05] MEDS: NORMODYNE PO SCH ×2 (09:33→22:08)
--- NOTE | 2016-11-05 09:58 | Progress Note ---
Assessment and Plan - Patient Problems (1) Bacteremia due to Enterococcus Current Visit: Yes Status: Acute Plan to address problem: Patient had initial blood cultures which were positive for enterococcus. Repeat blood cultures on 11/01/2016 did not show any growth morning 72 hours. Patient is being followed by infectious disease who would like to continue the vancomycin (2) Primary hypertension Current Visit: Yes Status: Acute Plan to address problem: Blood pressures well controlled today. Continue current regimen (3) ESRD (end stage renal disease) on dialysis Current Visit: Yes Status: Chronic Plan to address problem: Continue hemodialysis per nephrology (4) Pneumonia Current Visit: Yes Status: Acute Plan to address problem: Patient has been treated with IV antibiotics. Patient is currently afebrile and white blood cell count is normal (5) COPD (chronic obstructive pulmonary disease) Current Visit: No Status: Acute Plan to address problem: Patient has a history of COPD we will start albuterol Atrovent nebulizer treatment (6) Rib fracture Current Visit: Yes Status: Acute Plan to address problem: Patient presented with rib fracture of the eighth rib. Patient currently on Percocet for pain History Interval history: Patient sitting up in chair appears fine. Hospitalist Physical - Constitutional Vitals: Temp Pulse Resp BP Pulse Ox 98.5 F 86 18 120/68 97 11/05/16 08:14 11/05/16 09:32 11/05/16 08:14 11/05/16 09:32 11/05/16 08:14 General appearance: Present: no acute distress, well-nourished - EENT Eyes: Present: PERRL, EOM intact ENT: hearing intact, clear oral mucosa - Neck Neck: Present: supple, normal ROM - Respiratory Respiratory effort: normal Respiratory: bilateral: CTA - Cardiovascular Rhythm: regular Heart Sounds: Present: S1 & S2 - Abdominal General gastrointestinal: soft, non-tender, non-distended, normal bowel sounds - Psychiatric Psychiatric: appropriate mood/affect, intact judgment & insight - Neurologic Neurologic: CNII-XII intact, moves all extremities Results - Labs CBC & Chem 7: 11/04/16 06:34 11/04/16 06:34 Labs: Laboratory Last Values WBC 10.0 K/mm3 (4.5-11.0) 11/04/16 06:34 RBC 4.17 M/mm3 (3.65-5.03) 11/04/16 06:34 Hgb 12.1 gm/dl (10.1-14.3) 11/04/16 06:34 Hct 36.6 % (30.3-42.9) 11/04/16 06:34 MCV 88 fl (79-97) 11/04/16 06:34 MCH 29 pg (28-32) 11/04/16 06:34 MCHC 33 % (30-34) 11/04/16 06:34 RDW 15.6 % (13.2-15.2) H 11/04/16 06:34 Plt Count 267 K/mm3 (140-440) 11/04/16 06:34 Lymph % (Auto) 11.0 % (13.4-35.0) L 11/04/16 06:34 [place] % (Auto) 11.5 % (0.0-7.3) H 11/04/16 06:34 Eos % (Auto) 1.1 % (0.0-4.3) 11/04/16 06:34 Baso % (Auto) 1.0 % (0.0-1.8) 11/04/16 06:34 Lymph # 1.1 K/mm3 (1.2-5.4) L 11/04/16 06:34 [place] # 1.1 K/mm3 (0.0-0.8) H 11/04/16 06:34 Eos # 0.1 K/mm3 (0.0-0.4) 11/04/16 06:34 Baso # 0.1 K/mm3 (0.0-0.1) 11/04/16 06:34 Add Manual Diff Complete 10/28/16 06:47 Total Counted 200 10/28/16 06:47 Seg Neutrophils % 75.4 % (40.0-70.0) H 11/04/16 06:34 Seg Neuts % (Manual) 89.0 % (40.0-70.0) H 10/28/16 06:47 Band Neutrophils % 0.5 % 10/28/16 06:47 Lymphocytes % (Manual) 4.5 % (13.4-35.0) L 10/28/16 06:47 Reactive Lymphs % (Man) 0 % 10/28/16 06:47 Monocytes % (Manual) 5.5 % (0.0-7.3) 10/28/16 06:47 Eosinophils % (Manual) 0 % (0.0-4.3) 10/28/16 06:47 Basophils % (Manual) 0.5 % (0.0-1.8) 10/28/16 06:47 Metamyelocytes % 0 % 10/28/16 06:47 Myelocytes % 0 % 10/28/16 06:47 Promyelocytes % 0 % 10/28/16 06:47 Blast Cells % 0 % 10/28/16 06:47 Nucleated RBC % Not Reportable 10/28/16 06:47 Seg Neutrophils # 7.5 K/mm3 (1.8-7.7) 11/04/16 06:34 Seg Neutrophils # Man 29.0 K/mm3 (1.8-7.7) H 10/28/16 06:47 Band Neutrophils # 0.2 K/mm3 10/28/16 06:47 Lymphocytes # (Manual) 1.5 K/mm3 (1.2-5.4) 10/28/16 06:47 Abs React Lymphs (Man) 0.0 K/mm3 10/28/16 06:47 Monocytes # (Manual) 1.8 K/mm3 (0.0-0.8) H 10/28/16 06:47 Eosinophils # (Manual) 0.0 K/mm3 (0.0-0.4) 10/28/16 06:47 Basophils # (Manual) 0.2 K/mm3 (0.0-0.1) H 10/28/16 06:47 Metamyelocytes # 0.0 K/mm3 10/28/16 06:47 Myelocytes # 0.0 K/mm3 10/28/16 06:47 Promyelocytes # 0.0 K/mm3 10/28/16 06:47 Blast Cells # 0.0 K/mm3 10/28/16 06:47 WBC Morphology Not Reportable 10/28/16 06:47 Hypersegmented Neuts Not Reportable 10/28/16 06:47 Hyposegmented Neuts Not Reportable 10/28/16 06:47 Hypogranular Neuts Not Reportable 10/28/16 06:47 Smudge Cells Not Reportable 10/28/16 06:47 Toxic Granulation Not Reportable 10/28/16 06:47 Toxic Vacuolation Not Reportable 10/28/16 06:47 Dohle Bodies Not Reportable 10/28/16 06:47 Pelger-Huet Anomaly Not Reportable 10/28/16 06:47 Wayne Rods Not Reportable 10/28/16 06:47 Platelet Estimate Consistent w auto 10/28/16 06:47 Clumped Platelets Not Reportable 10/28/16 06:47 Plt Clumps, EDTA Not Reportable 10/28/16 06:47 Large Platelets Not Reportable 10/28/16 06:47 Giant Platelets Not Reportable 10/28/16 06:47 Platelet Satelliting Not Reportable 10/28/16 06:47 Plt Morphology Comment Not Reportable 10/28/16 06:47 RBC Morphology Not Reportable 10/28/16 06:47 Dimorphic RBCs Not Reportable 10/28/16 06:47 Polychromasia Not Reportable 10/28/16 06:47 Hypochromasia Not Reportable 10/28/16 06:47 Poikilocytosis Not Reportable 10/28/16 06:47 Anisocytosis 1+ 10/28/16 06:47 Microcytosis Not Reportable 10/28/16 06:47 Macrocytosis Not Reportable 10/28/16 06:47 Spherocytes Not Reportable 10/28/16 06:47 Pappenheimer Bodies Not Reportable 10/28/16 06:47 Sickle Cells Not Reportable 10/28/16 06:47 Target Cells Not Reportable 10/28/16 06:47 Tear Drop Cells Not Reportable 10/28/16 06:47 Ovalocytes Not Reportable 10/28/16 06:47 Helmet Cells Not Reportable 10/28/16 06:47 [place] Bodies Not Reportable 10/28/16 06:47 Breeding Rings Not Reportable 10/28/16 06:47 [place] Cells Not Reportable 10/28/16 06:47 Bite Cells Not Reportable 10/28/16 06:47 Crenated Cell Not Reportable 10/28/16 06:47 Elliptocytes Not Reportable 10/28/16 06:47 Acanthocytes (Spur) Not Reportable 10/28/16 06:47 Rouleaux Not Reportable 10/28/16 06:47 Hemoglobin C Crystals Not Reportable 10/28/16 06:47 Schistocytes Not Reportable 10/28/16 06:47 Malaria parasites Not Reportable 10/28/16 06:47 ESR 60 mm/Hr (0-20) 10/27/16 20:05 [place] Bodies Not Reportable 10/28/16 06:47 Hem Pathologist Commnt No 10/28/16 06:47 POC ABG pH 7.413 (7.35-7.45) 10/27/16 20:42 POC ABG pCO2 39.4 (35-45) 10/27/16 20:42 POC ABG pO2 83 (80-105) 10/27/16 20:42 POC ABG HCO3 25.2 10/27/16 20:42 POC ABG Total CO2 26 10/27/16 20:42 POC ABG O2 Sat 96 10/27/16 20:42 POC ABG Base Excess 1 10/27/16 20:42 FiO2 24 % 10/27/16 20:42 Sodium 134 mmol/L (137-145) L 11/04/16 06:34 Potassium 5.0 mmol/L (3.6-5.0) D 11/04/16 06:34 Chloride 94.1 mmol/L (98-107) L 11/04/16 06:34 Carbon Dioxide 23 mmol/L (22-30) 11/04/16 06:34 Anion Gap 22 mmol/L 11/04/16 06:34 BUN 18 mg/dL (7-17) H 11/04/16 06:34 Creatinine 4.4 mg/dL (0.7-1.2) H 11/04/16 06:34 Estimated GFR 12 ml/min 11/04/16 06:34 BUN/Creatinine Ratio 4.09 % 11/04/16 06:34 Glucose 96 mg/dL (65-100) 11/04/16 06:34 Lactic Acid 1.6 mmol/L (0.7-2.0) 10/27/16 20:05 Calcium 8.8 mg/dL (8.4-10.2) 11/04/16 06:34 Phosphorus 2.5 mg/dL (2.5-4.5) 10/27/16 20:05 Magnesium 1.9 mg/dL (1.7-2.3) 11/04/16 06:34 Total Creatine Kinase 74 units/L (30-135) 10/28/16 13:26 CK-MB (CK-2) 2.0 ng/mL (0.0-4.0) 10/28/16 13:26 CK-MB (CK-2) Rel Index 2.7 (0-4) 10/28/16 13:26 Troponin T 0.040 ng/mL (0.00-0.029) H D 10/28/16 13:26 C-Reactive Protein 33.20 mg/dL (0.00-1.30) H 10/27/16 20:05 NT-Pro-B Natriuret Pep 48982 pg/mL (0-900) H 10/27/16 20:05 Triglycerides 179 mg/dL (2-149) H 10/27/16 20:05 Cholesterol 141 mg/dL (50-199) 10/27/16 20:05 LDL Cholesterol Direct 63 mg/dL (50-130) 10/27/16 20:05 HDL Cholesterol 43 mg/dL (40-59) 10/27/16 20:05 Cholesterol/HDL Ratio 3.27 % 10/27/16 20:05 Urine Color Yellow (Yellow) 10/29/16 Unknown Urine Turbidity Slightly-cloudy (Clear) 10/29/16 Unknown Urine pH 5.0 (5.0-7.0) 10/29/16 Unknown Ur Specific [place] 1.017 (1.003-1.030) 10/29/16 Unknown Urine Protein 100 mg/dl mg/dL (Negative) 10/29/16 Unknown Urine Glucose (UA) Neg mg/dL (Negative) 10/29/16 Unknown Urine Ketones Tr mg/dL (Negative) 10/29/16 Unknown Urine Blood Mod (Negative) 10/29/16 Unknown Urine Nitrite Neg (Negative) 10/29/16 Unknown Urine Bilirubin Neg (Negative) 10/29/16 Unknown Urine Urobilinogen < 2.0 mg/dL (<2.0) 10/29/16 Unknown Ur Leukocyte Esterase Lg (Negative) 10/29/16 Unknown Urine WBC (Auto) 38.0 /HPF (0.0-6.0) H 10/29/16 Unknown Urine RBC (Auto) 9.0 /HPF (0.0-6.0) 10/29/16 Unknown U Epithel Cells (Auto) 6.0 /HPF (0-13.0) 10/29/16 Unknown Urine Bacteria (Auto) 1+ /HPF (Negative) 10/29/16 Unknown Ur Transition Epith Cell 1 /HPF 10/29/16 Unknown Urine Mucus Few /HPF 10/29/16 Unknown Random Vancomycin 25.1 ug/mL (0-40.0) 11/02/16 05:42
--- NOTE | 2016-11-05 10:33 | Progress Note ---
Assessment and Plan - Patient Problems (1) ESRD (end stage renal disease) on dialysis Current Visit: Yes Status: Chronic Plan to address problem: Patient was last dialyzed 2 days ago. Plan to do hemodialysis tomorrow. (2) Bacteremia due to Enterococcus Current Visit: Yes Status: Acute Plan to address problem: On Vancomycin. Monitor blood culture. Followed by ID. S/p removal of tunnel hemodialysis catheter. (3) Sepsis Current Visit: Yes Status: Acute Qualifiers: Sepsis type: sepsis due to unspecified organism Qualified Code(s): A41.9 - Sepsis, unspecified organism Plan to address problem: Improving. (4) Anemia, chronic renal failure Current Visit: No Status: Chronic Plan to address problem: Epogen prn. (5) Primary hypertension Current Visit: Yes Status: Acute Plan to address problem: BP controlled. Subjective Date of service: 11/05/16 Principal diagnosis: Enterococcal bacteremia Interval history: Patient is feeling better. Objective - Vital Signs Vital signs: Vital Signs - 12hr 11/05/16 11/05/16 11/05/16 00:00 02:07 08:14 Temperature 98.4 F 98.5 F Pulse Rate Pulse Rate [ 90 86 Right From Monitor] Respiratory 20 18 18 Rate Blood Pressure Blood Pressure 135/63 126/78 [Right Arm] O2 Sat by Pulse 95 97 Oximetry 11/05/16 09:32 Temperature Pulse Rate 86 Pulse Rate [ Right From Monitor] Respiratory Rate Blood Pressure 120/68 Blood Pressure [Right Arm] O2 Sat by Pulse Oximetry - General Appearance General appearance: well-developed, well-nourished, frail, other (no distress, left arm AVG) EENT: PERRL, mucous membranes moist, hearing intact, vision intact Neck: no carotid bruit, supple Respiratory: Present: Clear to Ascultation Cardiology: regular, S1S2, no murmurs Gastrointestinal: normoactive bowel sounds, no tenderness, no distended Integumentary: no rash, warm and dry Neurologic: no focal deficit, no asterixis, alert and oriented x3, CN 3-12 intact Musculoskeletal: other (no edema) Psychiatric: mood/affect appropriate, cooperative - Lab 11/04/16 06:34 11/04/16 06:34 Most recent lab results Calcium 8.8 mg/dL (8.4-10.2) 11/04/16 06:34 Phosphorus 2.5 mg/dL (2.5-4.5) 10/27/16 20:05 Magnesium 1.9 mg/dL (1.7-2.3) 11/04/16 06:34
--- NOTE | 2016-11-05 19:11 | Progress Note ---
Assessment and Plan Current antibiotics: Vancomycin (pulse dosing) 10/27 --> Previous antibiotics: Levaquin 500 mg IV q48h 10/27 --> ASSESSMENT: Bebo Freeman is a 81 y/o female with ESRF on maintenance HD, HTN, CHF, COPD and chronic hepatitis C who was admitted to [facility] on 10/29 with increasing left sided musculoskeletal pain, increasing generalized weakness and subjective fevers with some mild chills. Admitting blood cultures are growing Enterococcus. Problem list: 1. Enterococcal bacteremia -2/2 bottles from 10/27 and 2/4 bottles (1 set so far) from 10/29 are positive as well -Most likely source is the PermCath although apparently it is quite new. -Rule out endocarditis, etc. (TTE negative but technically difficult) -Urinalysis without signficant pyuria or bacteriuria 2. Leukocytosis -Likely secondary to #1 -Resolved 3. ESRD -Chronic HD -Right IJ PC placed 08/24/16 -Status post removal 11/02. Tip growing SLAB OFF MILL TENDER, significance unclear. 4. Hypertension 5. COPD 6. Musculoskeletal chest pain -Rule out embolic process although doubt -Rule rib fx after fall PLAN: 1. Await repeat blood cultures from 11/01 which are NGTD 2. If she remains bacteremic will need to consider JEAN-CLAUDE 3. Supportive measures as are being done. 4. Will continue vancomycin as she is penicillin allergic Pacheco Alford MD [facility] Office: [phone] Subjective Date of service: 11/05/16 Principal diagnosis: Enterococcal bacteremia Interval history: Continues to feel better. Left lateral chest pain improving. No new complaints. ROS: No subjective fever or chills. No nausea, vomiting or diarrhea. No shortness of breath, cough or pleuritic chest pain Objective - Exam Narrative Exam: GENERAL: Well-developed, well-nourished appearing female who is alert and in no acute distress. HEAD: Normocephalic. No lesions seen. EYES: Pupils are equal reactive to light and accommodation. There is no scleral icterus. Optic fundi are not examined. EARS: Tympanic membranes are normal. THROAT: Oropharynx is normal with no evidence of oral candidiasis or pharyngitis. Poor dentition but no obvious dental infection. NECK: Supple. No enlargement of the thyroid gland. No significant cervical lymphadenopathy. No jugular venous distention at 30. LUNGS: Clear with no adventitious sounds. CHEST: Right IJ PC with no signs of infection at the insertion site. Exquisite tenderness over the left lateral, lower chest with no other objective abnormalities. HEART: Regular rate. S1 and S2 are normal. There are no gallops, clicks or rubs heard. There is a grade II/ SILVER heard best over the LLSB. No diastolic murmur. ABDOMEN: Soft and nontender. Liver and spleen are not palpably enlarged or tender. No palpable masses. Bowel sounds are normoactive. EXTREMITIES: No rash, peripheral lymphadenopathy, clubbing or edema. LUE AVF with palpable thrill and audible bruit and no signs of infection. : Not examined. No Lee. NEUROLOGIC: No focal findings. - Constitutional Vitals: Vital Signs Temp Pulse Resp BP Pulse Ox 98.4 F 84 20 122/55 94 11/05/16 15:35 11/05/16 15:35 11/05/16 15:35 11/05/16 15:35 11/05/16 10:00 Temperature -Last 24 Hours Temperature 98.4 F Temperature 98.5 F Temperature 98.4 F - Labs CBC & Chem 7: 11/04/16 06:34 11/04/16 06:34 Labs: Microbiology 10/27/16 20:05 Peripheral/Venous Blood Culture - Final Enterococcus faecalis (penicillin sensitive) in 2/2 bottles 10/29/16 14:00 Peripheral/Venous Blood Culture - Preliminary 2/2 bottles with Enterococcus faecalis 10/29/16 13:54 Peripheral/Venous Blood Culture - Preliminary NGTD 11/01 blood cultures: NGTD 11/02 line tip: SLAB [employer] MILL TENDER Imagin/21 transthoracic echocardiogram: Study is technically limited. No definite valvular vegetation seen in no atrial thrombi. 10/27: Thoracic spine MRI: Negative except for hemangiomas at T6, T10 and L1 Lumbar spine MRI: No signs of infection. 10/28: CXR: No acute findings Chest CT: Borderline enlarged mediastinal lymph nodes. Advanced COPD with cystic change and fibrosis at the lung bases. Right basilar lung infiltrate. Left 8th rib fracture seen in retrospect
[2016-11-06] MEDS: PERCOCET 5/325 PO PRN ×2 (04:54→17:43)
[2016-11-06 05:51] LABS: Basophils % (Auto) 1.2 % (0.0-1.8); Eosinophils % (Auto) 1.9 % (0.0-4.3); Hematocrit 34.4 % (30.3-42.9); Mean Corpuscular HGB Conc 32 % (30-34); Mean Corpuscular Hemoglobin 29 pg (28-32); Platelet Count 295 K/mm3 (140-440); Red Cell Distribution Width 15.4 % (13.2-15.2); White Blood Count 7.3 K/mm3 (4.5-11.0)
[2016-11-06 05:53] LABS: Mean Corpuscular Volume 90 fl (79-97)
[2016-11-06 06:15] LABS: Albumin 2.6 g/dL (3.9-5); Albumin/Globulin Ratio 0.6 %; BUN/Creatinine Ratio 4.62; Bilirubin,Total 0.2 mg/dL (0.1-1.2); Calcium 8.4 mg/dL (8.4-10.2); Chloride 94.5 mmol/L (98-107); Potassium 4.2 mmol/L (3.6-5.0); Total Protein 6.9 g/dL (6.3-8.2)
[2016-11-06] MEDS ORDERED: NACL 0.9% 1000 ML 100 ML IV PRN (08:19)
[2016-11-06] MEDS ORDERED: HEPARIN 10,000 UNITS/10 ML IV PRN (08:19)
--- NOTE | 2016-11-06 09:43 | Progress Note ---
Assessment and Plan Current antibiotics: Vancomycin (pulse dosing) 10/27 --> Previous antibiotics: Levaquin 500 mg IV q48h 10/27 --> ASSESSMENT: Bebo Freeman is a 81 y/o female with ESRF on maintenance HD, HTN, CHF, COPD and chronic hepatitis C who was admitted to [facility] on 10/29 with increasing left sided musculoskeletal pain, increasing generalized weakness and subjective fevers with some mild chills. Admitting blood cultures are growing Enterococcus. Problem list: 1. Enterococcal bacteremia -2/2 bottles from 10/27 and 2/4 bottles (1 set so far) from 10/29 are positive as well -Most likely source is the PermCath although apparently it is quite new. -Rule out endocarditis, etc. (TTE negative but technically difficult) -Urinalysis without signficant pyuria or bacteriuria -Blood cultures 11/01 negative 2. Leukocytosis -Likely secondary to #1 -Resolved 3. ESRD -Chronic HD -Right IJ PC placed 08/24/16 -Status post removal 11/02. Tip growing TYPISTS SUPERVISOR, significance unclear. 4. Hypertension 5. COPD 6. Musculoskeletal chest pain -Rule out embolic process although doubt -Rule rib fx after fall PLAN: 1. OK ID keene to complete 2 weeks of IV vancomycin from documented clearance on 11/01. 2. Supportive measures as are being done. Subjective Date of service: 11/06/16 Principal diagnosis: Enterococcal bacteremia Interval history: No specific complaints. Discussed discharge. Objective - Exam Narrative Exam: HEENT: Pupils are equal reactive to light and accommodation. Conjunctiva clear. Oropharynx is normal with no evidence of oral candidiasis or pharyngitis. NECK: Supple. No enlargement of the thyroid gland. No significant cervical lymphadenopathy. No jugular venous distention at 30. LUNGS: Clear with no adventitious sounds. HEART: Regular rate. S1 and S2 are normal. There are no murmurs, gallops, clicks or rubs heard. ABDOMEN: Soft and nontender. Liver and spleen are not palpably enlarged or tender. No palpable masses. Bowel sounds are normoactive. Left CVA point tenderness. EXTREMITIES: No rash, peripheral lymphadenopathy, clubbing or edema. NASREEN with positive thrill and bruit. SKIN: No other rash, ulcers or wounds. Previous right chest wall catheter site without swelling, redness, or tenderness. NEUROLOGIC: No focal findings. - Constitutional Vitals: Vital Signs Temp Pulse Resp BP Pulse Ox 98.0 F 92 H 20 119/57 100 11/06/16 08:08 11/06/16 08:08 11/06/16 08:08 11/06/16 08:08 11/06/16 08:08 Temperature -Last 24 Hours Temperature 98.0 F Temperature 97.9 F Temperature 98.4 F - Labs CBC & Chem 7: 11/06/16 05:18 11/06/16 05:18 Labs: Abnormal lab results 11/06/16 11/06/16 Range/Units 05:18 05:18 RDW 15.4 H (13.2-15.2) % [place] % (Auto) 12.0 H (0.0-7.3) % Lymph # 1.1 L (1.2-5.4) K/mm3 [place] # 0.9 H (0.0-0.8) K/mm3 Sodium 135 L (137-145) mmol/L Chloride 94.5 L (98-107) mmol/L BUN 37 H (7-17) mg/dL Creatinine 8.0 H D (0.7-1.2) mg/dL Albumin 2.6 L (3.9-5) g/dL
--- NOTE | 2016-11-06 09:52 | Progress Note ---
Assessment and Plan - Patient Problems (1) Bacteremia due to Enterococcus Current Visit: Yes Status: Acute (2) Primary hypertension Current Visit: Yes Status: Acute (3) ESRD (end stage renal disease) on dialysis Current Visit: Yes Status: Chronic (4) Pneumonia Current Visit: Yes Status: Acute (5) COPD (chronic obstructive pulmonary disease) Current Visit: No Status: Acute (6) Rib fracture Current Visit: Yes Status: Acute Hospitalist Physical - Constitutional Vitals: Temp Pulse Resp BP Pulse Ox 98.0 F 92 H 20 119/57 100 11/06/16 08:08 11/06/16 08:08 11/06/16 08:08 11/06/16 08:08 11/06/16 08:08 General appearance: Present: no acute distress, well-nourished Results - Labs CBC & Chem 7: 11/06/16 05:18 11/06/16 05:18 Labs: Laboratory Last Values WBC 7.3 K/mm3 (4.5-11.0) 11/06/16 05:18 RBC 3.80 M/mm3 (3.65-5.03) 11/06/16 05:18 Hgb 11.0 gm/dl (10.1-14.3) 11/06/16 05:18 Hct 34.4 % (30.3-42.9) 11/06/16 05:18 MCV 90 fl (79-97) 11/06/16 05:18 MCH 29 pg (28-32) 11/06/16 05:18 MCHC 32 % (30-34) 11/06/16 05:18 RDW 15.4 % (13.2-15.2) H 11/06/16 05:18 Plt Count 295 K/mm3 (140-440) 11/06/16 05:18 Lymph % (Auto) 14.9 % (13.4-35.0) 11/06/16 05:18 [place] % (Auto) 12.0 % (0.0-7.3) H 11/06/16 05:18 Eos % (Auto) 1.9 % (0.0-4.3) 11/06/16 05:18 Baso % (Auto) 1.2 % (0.0-1.8) 11/06/16 05:18 Lymph # 1.1 K/mm3 (1.2-5.4) L 11/06/16 05:18 [place] # 0.9 K/mm3 (0.0-0.8) H 11/06/16 05:18 Eos # 0.1 K/mm3 (0.0-0.4) 11/06/16 05:18 Baso # 0.1 K/mm3 (0.0-0.1) 11/06/16 05:18 Add Manual Diff Complete 10/28/16 06:47 Total Counted 200 10/28/16 06:47 Seg Neutrophils % 70.0 % (40.0-70.0) 11/06/16 05:18 Seg Neuts % (Manual) 89.0 % (40.0-70.0) H 10/28/16 06:47 Band Neutrophils % 0.5 % 10/28/16 06:47 Lymphocytes % (Manual) 4.5 % (13.4-35.0) L 10/28/16 06:47 Reactive Lymphs % (Man) 0 % 10/28/16 06:47 Monocytes % (Manual) 5.5 % (0.0-7.3) 10/28/16 06:47 Eosinophils % (Manual) 0 % (0.0-4.3) 10/28/16 06:47 Basophils % (Manual) 0.5 % (0.0-1.8) 10/28/16 06:47 Metamyelocytes % 0 % 10/28/16 06:47 Myelocytes % 0 % 10/28/16 06:47 Promyelocytes % 0 % 10/28/16 06:47 Blast Cells % 0 % 10/28/16 06:47 Nucleated RBC % Not Reportable 10/28/16 06:47 Seg Neutrophils # 5.1 K/mm3 (1.8-7.7) 11/06/16 05:18 Seg Neutrophils # Man 29.0 K/mm3 (1.8-7.7) H 10/28/16 06:47 Band Neutrophils # 0.2 K/mm3 10/28/16 06:47 Lymphocytes # (Manual) 1.5 K/mm3 (1.2-5.4) 10/28/16 06:47 Abs React Lymphs (Man) 0.0 K/mm3 10/28/16 06:47 Monocytes # (Manual) 1.8 K/mm3 (0.0-0.8) H 10/28/16 06:47 Eosinophils # (Manual) 0.0 K/mm3 (0.0-0.4) 10/28/16 06:47 Basophils # (Manual) 0.2 K/mm3 (0.0-0.1) H 10/28/16 06:47 Metamyelocytes # 0.0 K/mm3 10/28/16 06:47 Myelocytes # 0.0 K/mm3 10/28/16 06:47 Promyelocytes # 0.0 K/mm3 10/28/16 06:47 Blast Cells # 0.0 K/mm3 10/28/16 06:47 WBC Morphology Not Reportable 10/28/16 06:47 Hypersegmented Neuts Not Reportable 10/28/16 06:47 Hyposegmented Neuts Not Reportable 10/28/16 06:47 Hypogranular Neuts Not Reportable 10/28/16 06:47 Smudge Cells Not Reportable 10/28/16 06:47 Toxic Granulation Not Reportable 10/28/16 06:47 Toxic Vacuolation Not Reportable 10/28/16 06:47 Dohle Bodies Not Reportable 10/28/16 06:47 Pelger-Huet Anomaly Not Reportable 10/28/16 06:47 [place] Rods Not Reportable 10/28/16 06:47 Platelet Estimate Consistent w auto 10/28/16 06:47 Clumped Platelets Not Reportable 10/28/16 06:47 Plt Clumps, EDTA Not Reportable 10/28/16 06:47 Large Platelets Not Reportable 10/28/16 06:47 Giant Platelets Not Reportable 10/28/16 06:47 Platelet Satelliting Not Reportable 10/28/16 06:47 Plt Morphology Comment Not Reportable 10/28/16 06:47 RBC Morphology Not Reportable 10/28/16 06:47 Dimorphic RBCs Not Reportable 10/28/16 06:47 Polychromasia Not Reportable 10/28/16 06:47 Hypochromasia Not Reportable 10/28/16 06:47 Poikilocytosis Not Reportable 10/28/16 06:47 Anisocytosis 1+ 10/28/16 06:47 Microcytosis Not Reportable 10/28/16 06:47 Macrocytosis Not Reportable 10/28/16 06:47 Spherocytes Not Reportable 10/28/16 06:47 Pappenheimer Bodies Not Reportable 10/28/16 06:47 Sickle Cells Not Reportable 10/28/16 06:47 Target Cells Not Reportable 10/28/16 06:47 Tear Drop Cells Not Reportable 10/28/16 06:47 Ovalocytes Not Reportable 10/28/16 06:47 Helmet Cells Not Reportable 10/28/16 06:47 [place] Bodies Not Reportable 10/28/16 06:47 [place] Rings Not Reportable 10/28/16 06:47 [place] Cells Not Reportable 10/28/16 06:47 Bite Cells Not Reportable 10/28/16 06:47 Crenated Cell Not Reportable 10/28/16 06:47 Elliptocytes Not Reportable 10/28/16 06:47 Acanthocytes (Spur) Not Reportable 10/28/16 06:47 Rouleaux Not Reportable 10/28/16 06:47 Hemoglobin C Crystals Not Reportable 10/28/16 06:47 Schistocytes Not Reportable 10/28/16 06:47 Malaria parasites Not Reportable 10/28/16 06:47 ESR 60 mm/Hr (0-20) 10/27/16 20:05 [place] Bodies Not Reportable 10/28/16 06:47 Hem Pathologist Commnt No 10/28/16 06:47 POC ABG pH 7.413 (7.35-7.45) 10/27/16 20:42 POC ABG pCO2 39.4 (35-45) 10/27/16 20:42 POC ABG pO2 83 (80-105) 10/27/16 20:42 POC ABG HCO3 25.2 10/27/16 20:42 POC ABG Total CO2 26 10/27/16 20:42 POC ABG O2 Sat 96 10/27/16 20:42 POC ABG Base Excess 1 10/27/16 20:42 FiO2 24 % 10/27/16 20:42 Sodium 135 mmol/L (137-145) L 11/06/16 05:18 Potassium 4.2 mmol/L (3.6-5.0) 11/06/16 05:18 Chloride 94.5 mmol/L (98-107) L 11/06/16 05:18 Carbon Dioxide 22 mmol/L (22-30) 11/06/16 05:18 Anion Gap 23 mmol/L 11/06/16 05:18 BUN 37 mg/dL (7-17) H 11/06/16 05:18 Creatinine 8.0 mg/dL (0.7-1.2) H D 11/06/16 05:18 Estimated GFR 6 ml/min 11/06/16 05:18 BUN/Creatinine Ratio 4.62 % 11/06/16 05:18 Glucose 93 mg/dL (65-100) 11/06/16 05:18 Lactic Acid 1.6 mmol/L (0.7-2.0) 10/27/16 20:05 Calcium 8.4 mg/dL (8.4-10.2) 11/06/16 05:18 Phosphorus 2.5 mg/dL (2.5-4.5) 10/27/16 20:05 Magnesium 1.9 mg/dL (1.7-2.3) 11/04/16 06:34 Total Bilirubin 0.2 mg/dL (0.1-1.2) 11/06/16 05:18 AST 13 units/L (5-40) 11/06/16 05:18 ALT 8 units/L (7-56) 11/06/16 05:18 Alkaline Phosphatase 116 units/L (35-129) 11/06/16 05:18 Total Creatine Kinase 74 units/L (30-135) 10/28/16 13:26 CK-MB (CK-2) 2.0 ng/mL (0.0-4.0) 10/28/16 13:26 CK-MB (CK-2) Rel Index 2.7 (0-4) 10/28/16 13:26 Troponin T 0.040 ng/mL (0.00-0.029) H D 10/28/16 13:26 C-Reactive Protein 33.20 mg/dL (0.00-1.30) H 10/27/16 20:05 NT-Pro-B Natriuret Pep 18178 pg/mL (0-900) H 10/27/16 20:05 Total Protein 6.9 g/dL (6.3-8.2) 11/06/16 05:18 Albumin 2.6 g/dL (3.9-5) L 11/06/16 05:18 Albumin/Globulin Ratio 0.6 % 11/06/16 05:18 Triglycerides 179 mg/dL (2-149) H 10/27/16 20:05 Cholesterol 141 mg/dL (50-199) 10/27/16 20:05 LDL Cholesterol Direct 63 mg/dL (50-130) 10/27/16 20:05 HDL Cholesterol 43 mg/dL (40-59) 10/27/16 20:05 Cholesterol/HDL Ratio 3.27 % 10/27/16 20:05 Urine Color Yellow (Yellow) 10/29/16 Unknown Urine Turbidity Slightly-cloudy (Clear) 10/29/16 Unknown Urine pH 5.0 (5.0-7.0) 10/29/16 Unknown Ur Specific [place] 1.017 (1.003-1.030) 10/29/16 Unknown Urine Protein 100 mg/dl mg/dL (Negative) 10/29/16 Unknown Urine Glucose (UA) Neg mg/dL (Negative) 10/29/16 Unknown Urine Ketones Tr mg/dL (Negative) 10/29/16 Unknown Urine Blood Mod (Negative) 10/29/16 Unknown Urine Nitrite Neg (Negative) 10/29/16 Unknown Urine Bilirubin Neg (Negative) 10/29/16 Unknown Urine Urobilinogen < 2.0 mg/dL (<2.0) 10/29/16 Unknown Ur Leukocyte Esterase Lg (Negative) 10/29/16 Unknown Urine WBC (Auto) 38.0 /HPF (0.0-6.0) H 10/29/16 Unknown Urine RBC (Auto) 9.0 /HPF (0.0-6.0) 10/29/16 Unknown U Epithel Cells (Auto) 6.0 /HPF (0-13.0) 10/29/16 Unknown Urine Bacteria (Auto) 1+ /HPF (Negative) 10/29/16 Unknown Ur Transition Epith Cell 1 /HPF 10/29/16 Unknown Urine Mucus Few /HPF 10/29/16 Unknown Random Vancomycin 15.8 ug/mL (0-40.0) 11/06/16 05:18
--- NOTE | 2016-11-06 10:11 | Progress Note ---
Assessment and Plan - Patient Problems (1) ESRD (end stage renal disease) on dialysis Current Visit: Yes Status: Chronic Plan to address problem: Patient was last dialyzed 3 days ago. Plan to do hemodialysis today. (2) Bacteremia due to Enterococcus Current Visit: Yes Status: Acute Plan to address problem: On Vancomycin. Monitor blood culture. Followed by ID. S/p removal of tunnel hemodialysis catheter. Cultures negative since . Vancomycin 1 gm with hemodialysis until 11/15, informed Isacc Sidhu. D/w . (3) Sepsis Current Visit: Yes Status: Acute Qualifiers: Sepsis type: sepsis due to unspecified organism Qualified Code(s): A41.9 - Sepsis, unspecified organism Plan to address problem: Improved. (4) Anemia, chronic renal failure Current Visit: No Status: Chronic Plan to address problem: Epogen prn. (5) Primary hypertension Current Visit: Yes Status: Acute Plan to address problem: BP controlled. Subjective Date of service: 11/06/16 Principal diagnosis: Enterococcal bacteremia Interval history: Patient is feeling better. Objective - Vital Signs Vital signs: Vital Signs - 12hr 11/05/16 11/06/16 11/06/16 22:17 04:54 08:00 Temperature Pulse Rate [ Right From Monitor] Respiratory 18 18 Rate Blood Pressure [Right Arm] O2 Sat by Pulse 97 Oximetry 11/06/16 08:08 Temperature 98.0 F Pulse Rate [ 92 H Right From Monitor] Respiratory 20 Rate Blood Pressure 119/57 [Right Arm] O2 Sat by Pulse 100 Oximetry - General Appearance General appearance: well-developed, well-nourished, other (no distress, left arm AVG) EENT: PERRL, mucous membranes moist, hearing intact, vision intact Neck: no carotid bruit, supple Respiratory: Present: Clear to Ascultation Cardiology: regular, S1S2, no murmurs Gastrointestinal: normoactive bowel sounds, no tenderness, no distended Integumentary: no rash, warm and dry Neurologic: no focal deficit, no asterixis, alert and oriented x3, CN 3-12 intact Musculoskeletal: other (no edema) Psychiatric: mood/affect appropriate, cooperative - Lab 11/06/16 05:18 11/06/16 05:18 Most recent lab results Calcium 8.4 mg/dL (8.4-10.2) 11/06/16 05:18 Phosphorus 2.5 mg/dL (2.5-4.5) 10/27/16 20:05 Magnesium 1.9 mg/dL (1.7-2.3) 11/04/16 06:34
[2016-11-06] MEDS: COLACE PO SCH (10:27)
[2016-11-06] MEDS: LOVENOX SUB-Q SCH (10:27)
--- NOTE | 2016-11-06 12:23 | Discharge Summary ---
Providers - Providers Date of Admission: 10/27/16 23:29 Date of discharge: 11/06/16 Attending physician: UMM MEZA 10/28/16 17:16 Physical Therapy Evaluation and Treat [CONS] Routine Comment: Reason For Exam: generalized weakness 10/30/16 07:44 Consult to Physician [CONS] Routine Consulting Provider: SAMANTHA RAMIREZ Reason For Exam: ESRD Place consult to:: DR Ramirez Notified:: yes 10/30/16 09:05 Consult to Physician [CONS] Routine Consulting Provider: NAYAN CASAREZ Reason For Exam: blood cultures enterococcus/persistent leukocytosi Place consult to:: underwriter solicitation director Notified:: office Phone number called:: Was contact made?: Yes If yes, spoke with:: mynor Time called:: 10:10 10/31/16 12:37 Consult to Physician [CONS] Routine Consulting Provider: UMM REILLY Reason For Exam: Persistent bacteremia; Rule out infected PC Place consult to:: DR. Ilda REILLY Notified:: OFFICE Phone number called:: [phone] Was contact made?: Yes If yes, spoke with:: ROLO Alfred called:: 13:43 Comment:: VINAY NOTIFIED Primary care physician: PROFESSIONAL BONDSMAN Hospitalization Condition: Serious Hospital course: 81-year-old woman with end-stage renal disease on dialysis Sunday and Sunday, hypertension, CHF, COPD constant emergency room with complaints of of pain in the back in the left mid lateral aspect. She describes the pain is sharp, worse when she takes a deep breath. Also complaining of a cough productive of yellow phlegm, fever Patient denies chest pain, palpitation, abdominal pain, hematochezia, dysuria, frequency, focal weakness, dysarthria, fever chills, polydipsia polyuria, hot or cold intolerance, easy bruisability, or rash or bleeding from mucosal membrane, rhinorrhea, epistaxis, earache, tinnitus, blurry vision, eye discharge , anxiety, depression. Other review of systems negative. Patient was admitted to the hospital found to have enterococcal bacteremia and was treated with IV antibiotics. Most likely source was the permacath. Patient had TTE that was negative for endocarditis. Urinalysis was without significant pyuria or bacteriuria. Leukocytosis possibly secondary to enterococcal bacteremia. Patient has history of end-stage renal disease which she was dialyzed by nephrology. Patient had right IJ permacath removed on 11/02/2016. Patient will be treated with IV Vanco per ID for 2 weeks during dialysis. Arrangement has already been set up per nephrology. Patient is clinically stable and will be discharged back to her living quarters Disposition: DC/TX ANOTHER TYPE HEALTHCARE - Discharge Diagnoses (1) Bacteremia due to Enterococcus Status: Acute (2) Primary hypertension Status: Acute (3) ESRD (end stage renal disease) on dialysis Status: Chronic (4) Pneumonia Status: Acute (5) COPD (chronic obstructive pulmonary disease) Status: Acute Comment: Stable. (6) Rib fracture Status: Acute Core Measure Documentation - Palliative Care Palliative Care/ Comfort Measures: Not Applicable - Core Measures Any of the following diagnoses?: none Exam - Constitutional Vitals: Temp Pulse Resp BP Pulse Ox 98.0 F 92 H 20 119/57 100 11/06/16 08:08 11/06/16 08:08 11/06/16 08:08 11/06/16 08:08 11/06/16 08:08 General appearance: Present: no acute distress - EENT Eyes: Present: PERRL, EOM intact ENT: hearing intact, clear oral mucosa - Neck Neck: Present: supple, normal ROM - Respiratory Respiratory effort: normal Respiratory: bilateral: CTA - Cardiovascular Rhythm: regular Heart Sounds: Present: S1 & S2 - Abdominal General gastrointestinal: Present: soft, non-tender, non-distended, normal bowel sounds - Psychiatric Psychiatric: appropriate mood/affect, intact judgment & insight - Neurologic Neurologic: CNII-XII intact, moves all extremities Plan Activity: advance as tolerated Weight Bearing Status: Weight Bear as Tolerated Diet: low fat, low cholesterol, low salt Follow up with: PRIMARY CARE, [Primary Care Provider] - 3-5 Days Prescriptions: Bisacodyl [Dulcolax suppos] 10 mg MO QDAY PRN #30 supp.rect PRN Reason: Constipation unrelieved by MOM Docusate Sodium [Colace CAP] 100 mg PO BID #60 capsule Epoetin Rory 10,000 Unit [Procrit] 10,000 unit SUB-Q ALYCE PRN #30 vial PRN Reason: Hemodialysis Labetalol [Normodyne TAB] 200 mg PO BID #60 tablet Montelukast [Singulair] 10 mg PO DAILY #30 tablet hydrALAZINE [Apresoline TAB] 50 mg PO BID #60 tablet oxyCODONE /ACETAMINOPHEN [Percocet 5/325 mg] 1 tab PO Q6H PRN #20 tablet PRN Reason: Pain, Moderate (4-6)
[2016-11-06] MEDS: PROCRIT SUB-Q PRN (16:16)
[2016-11-06] MEDS: APRESOLINE PO SCH (17:42)
[2016-11-06] MEDS: SINGULAIR PO SCH (17:42)
[2016-11-06] MEDS: NORMODYNE PO SCH (17:43)
[2016-11-06] MEDS ORDERED: VANCOMYCIN VIAL 750 MG in NACL 0.9% 250ML 250 ML IV SCH (18:00)
[2016-11-06 18:16] VITALS: BP 138/58
== END 2016-11-06 11:05 | disposition other institution (70) | DRG 314 ==
LOC: ED 14:41 → 3A 23:29
PROVIDERS: ADMIT Internal Medicine; ATTEND Internal Medicine
PROC: 5A1D60Z (ICD-10-PCS; 2016-11-01)
PROC: 02PY33Z Removal of Infusion Device from Great Vessel, Percutaneous Approach (ICD-10-PCS; principal; 2016-11-02)
DX: T82.7XXA Infection and inflammatory reaction due to other cardiac and vascular devices, implants and grafts, initial encounter (principal); J18.9 Pneumonia, unspecified organism; N18.6 End stage renal disease; A41.81 Sepsis due to Enterococcus; I50.33 Acute on chronic diastolic (congestive) heart failure; J44.1 Chronic obstructive pulmonary disease with (acute) exacerbation; I13.2 Hypertensive heart and chronic kidney disease with heart failure and with stage 5 chronic kidney disease, or end stage renal disease; J44.0 Chronic obstructive pulmonary disease with (acute) lower respiratory infection; S22.31XA Fracture of one rib, right side, initial encounter for closed fracture; B19.20 Unspecified viral hepatitis C without hepatic coma; M54.5 Low back pain; E66.9 Obesity, unspecified; M19.90 Unspecified osteoarthritis, unspecified site; D63.1 Anemia in chronic kidney disease; G89.29 Other chronic pain; R07.89 Other chest pain; E11.22 Type 2 diabetes mellitus with diabetic chronic kidney disease; Y83.8 Other surgical procedures as the cause of abnormal reaction of the patient, or of later complication, without mention of misadventure at the time of the procedure; Y92.89 Other specified places as the place of occurrence of the external cause; Z88.8 Allergy status to other drugs, medicaments and biological substances; Z88.0 Allergy status to penicillin; Z99.2 Dependence on renal dialysis; Z79.899 Other long term (current) drug therapy; Z98.890 Other specified postprocedural states; Z68.30 Body mass index [BMI] 30.0-30.9, adult; Z82.49 Family history of ischemic heart disease and other diseases of the circulatory system; Z90.49 Acquired absence of other specified parts of digestive tract
CPT/HCPCS: 36415; 71010; 71250; 72141; 72146; 72148; 80048; 80053; 80061; 80202; 81001; 82140; 82550; 82553; 82803; 83735; 83880; 84100; 84484; 85007; 85025; 85652; 86140; 87040; 87076; 87116; 87185; 87186; 93306; 93990; 94640; 94760; 96365; 96366; 96367; G8978-GP; G8979-GP; J0692; J0885; J1644; J1650; J1956; J3370; J7030; J7040; J7050